=== PATIENT | female | born 1975 | race Caucasian/White ===

== ENCOUNTER 2020-01-13 09:47 | Outpatient (REF) | payer BC, SELFPAY ==
--- NOTE | 2020-01-13 | MR_ITS ---
EXAMINATION: MRI BRAIN WITHOUT AND WITH CONTRAST MRI CERVICAL SPINE WITHOUT AND WITH CONTRAST CLINICAL INFORMATION: Multiple sclerosis. Follow-up. COMPARISON: Brain and cervical spine there are chronic postoperative changes of an anterior cervical discectomy and fusion with plate and screw hardware extending from C5 to C6. MRI 03/05/2018, 04/08/2016. TECHNIQUE: Multiplanar MR imaging of the brain and cervical spine was performed without and with contrast. A total of 8 mL Gadavist was utilized for this examination. FINDINGS: Brain: There are numerous foci of T2 FLAIR signal hyperintensity primarily involving the supratentorial white matter with a predilection for the callososeptal interface and juxtacortical white matter consistent with the patient's clinical history of multiple sclerosis. Postcontrast images reveal no abnormal intraparenchymal enhancement to suggest active demyelination at the time of imaging. Overall the extent of chronic white matter disease has remained stable when compared to the 05/06/2017 examination. There is no acute territorial infarct. No pathological magnetic susceptibility artifact. Intracranial vascular flow voids are grossly maintained. There is no intracranial mass effect or midline shift. No abnormal extra-axial collection. Lateral and third ventricles are proportionate to the subarachnoid spaces. No hydrocephalus. Midline structures including the cervicomedullary junction are normal. No acute bone marrow signal changes. There is no mastoid or middle ear effusion. Paranasal sinus disease primarily affecting the ethmoid air cells. Cervical spine: There are chronic postoperative changes of an anterior cervical discectomy and fusion with plate and screw hardware extending from C5 to C6. Alignment is normal. Vertebral heights are preserved. There is loss of intervertebral disc height and T2 signal intensity at the levels of C4-C5 and C6-C7 related to disc degeneration. There are type I degenerative endplate changes at C6-C7 and type II degenerative endplate changes at C4-C5. There are a few eccentric short segment white matter lesions visualized within the upper thoracic cord consistent with the patient's clinical history of demyelinating disease. Possible new intramedullary lesion at T2. There is also a short segment focus of increased T2 signal intensity involving the cord at the level of C6-C7 that may represent a manifestation of compressive myelopathy. The occipital condyles and lateral C1 masses are intact. There is degenerative arthrosis of the atlantodental joint. C1-C2 articular facets are unremarkable. At C2-C3 the annular contour is normal. No canal or neuroforaminal compromise. At C3-C4 the annular contour is normal. No canal or neuroforaminal compromise. At C4-C5 there is a slightly bulging disc causing mild canal stenosis. No overt cord compression or abnormal intramedullary signal changes. Uncovertebral joint spurring and facet degenerative change causes moderate left and mild right neuroforaminal encroachment. At C5-C6 the canal is decompressed. No neuroforaminal encroachment. At C6-C7 there is a broad shallow central protrusion superimposed upon a bulging disc causing near complete effacement of subarachnoid space and subtle distortion of the ventral cord contour defect resulting in moderate to severe stenosis. Questionable short segment focus of increased intramedullary T2 signal intensity at this level may represent manifestation of demyelination or edema. Uncovertebral joint spurring and facet degenerative change causes moderate bilateral neuroforaminal encroachment, greater on the right. At C7-T1 there is a slightly bulging disc. Bilateral facet degenerative change. No canal stenosis. Mild right neuroforaminal encroachment. Postcontrast images reveal no abnormal intradural enhancement. Visualized soft tissues of the neck are normal. IMPRESSION: Brain: Stable chronic white matter disease that demonstrates a pattern consistent with the patient's clinical history of multiple sclerosis. No new white matter lesions and no abnormal enhancement to suggest active demyelination at the time of imaging. Cervical spine: There chronic changes of an anterior cervical discectomy and fusion at C5-C6. There is junctional spondylosis above and below the fused segments. At C6-C7 there is a broad central protrusion superimposed upon a bulging disc causing moderate to severe stenosis with subtle distortion of the ventral cord contour. Questionable short segment of edema and/or myelomalacia involving the cervical cord at this level. Mild canal stenosis at C4-C5. A few chronic intramedullary lesions are partially visualized within the upper thoracic cord compatible with this patient's history of multiple sclerosis. An intramedullary lesion at the level of T2 appears new when compared to the previous examination from 03/05/2018. No clear evidence of associated enhancement on postcontrast imaging.
== END 2020-01-13 09:48 | disposition home or self-care (01) ==
LOC: HO.MRI 09:47
PROVIDERS: Visit Provider Nurse Practitioner Acute Care
DX: G35 Multiple sclerosis (principal)
CPT/HCPCS: 70553; 72156

== ENCOUNTER 2020-02-17 16:28 | Outpatient (REF) | payer BC, SELFPAY ==
--- NOTE | 2020-02-17 16:45 | MR_ITS ---
MR THORACIC SPINE WITHOUT AND WITH CONTRAST CLINICAL INFORMATION: Multiple sclerosis. Vitamin D deficiency. COMPARISON: Thoracic spine MRI 02/07/2014. TECHNIQUE: MRI of the thoracic spine was obtained using routine sequences with and without contrast. Intravenous contrast: Gadavist 7 mL. FINDINGS: Assessment for discrete cord lesions is limited by the degree of artifact with none definitively seen. There are no enhancing thoracic cord lesions. Thoracic alignment is maintained. There is mild disc volume loss at the mid to lower thoracic levels. The vertebral body heights are maintained. There is no bone marrow edema. There are no acute fractures. Small paracentral disc protrusions within the thoracic spine remain stable including the largest which is a left paracentral disc protrusion at T10-T11 that partially effaces the left subarticular zone and slightly flattens the left ventral cord resulting in mild narrowing of the central canal. A partially imaged disc protrusion at C6-C7 flattens the ventral cord and results in similar moderate to severe central canal stenosis in comparison to the 01/13/2020 cervical spine MRI. MR/MR thoracic spine wo/w con IMPRESSION: - No definite thoracic cord lesions are identified accounting for artifact. There are no enhancing thoracic cord lesions. - Small paracentral disc protrusions within the thoracic spine remain stable including the largest which is a left paracentral disc protrusion at T10-T11 that partially effaces the left subarticular zone and slightly flattens the left ventral cord resulting in mild narrowing of the central canal. - A partially imaged disc protrusion at C6-C7 flattens the ventral cord and results in similar moderate to severe central canal stenosis in comparison to the 01/13/2020 cervical spine MRI.
== END 2020-02-17 16:29 | disposition home or self-care (01) ==
LOC: HO.MRI 16:28
PROVIDERS: Visit Provider Psychiatry & Neurology Neurology
DX: G35 Multiple sclerosis (principal); E55.9 Vitamin D deficiency, unspecified
CPT/HCPCS: 72157

== ENCOUNTER 2020-06-10 15:44 | Outpatient (REF) | payer BC, SELFPAY ==
[2020-06-10 16:11] LABS: MANUAL DIFF FLAG NO
[2020-06-10 16:22] LABS: Basophils Percent Auto 0.7 % (0-2); Eosinophils Absolute Auto 0.3 X10*3/uL (0.0-0.4); Eosinophils Percent Auto 4.3 % (0-4); Hemoglobin 12.9 g/dl (12.0-16.0); Imm Gran Abs Auto 0.01 X10*3/uL (0.00-0.03); Imm Gran Pct Auto 0.2 % (0.0-0.4); Lymphocytes Absolute Auto 1.4 X10*3/uL (1.2-4.9); Lymphocytes Percent Auto 24.2 % (20-40); Mean Corpuscular HGB Conc 33.1 g/dl (31.0-35.0); Mean Corpuscular Hemoglobin 33.1 pg (27.0-33.0); Mean Platelet Volume 10.4 fL (9.4-12.3); Monocytes Absolute Auto 0.4 X10*3/uL (0.1-1.2); Monocytes Percent Auto 7.2 % (2-11); Neutrophils Absolute Auto 3.7 X10*3/uL (2.0-8.3); Neutrophils Percent Auto 63.4 % (45-73); Platelet Count 350 X10*3/uL (160-400); Red Cell Distribution Width 12.9 % (11.0-16.0); White Blood Count 5.8 X10*3/uL (4.8-10.8)
[2020-06-10 16:48] LABS: Alanine Aminotransferase 12 U/L (0-31); Albumin Level 4.3 g/dL (3.5-5.0); Alkaline Phosphatase 51 U/L (39-117); Aspartate Amino Transferase 16 U/L (5-31); Bilirubin Direct < 0.2 mg/dL (0.0-0.5); Bilirubin Total 0.3 mg/dL (0.0-1.0); Total Protein 6.8 g/dL (6.5-8.0)
[2020-06-10 17:09] LABS: Vitamin D 25-OH Total 20.9 ng/mL (>30)
== END 2020-06-10 15:45 | disposition home or self-care (01) ==
LOC: HO.LAB 15:44
PROVIDERS: PCP Internal Medicine; Visit Provider Psychiatry & Neurology Neurology
DX: G35 Multiple sclerosis (principal); E55.9 Vitamin D deficiency, unspecified
CPT/HCPCS: 36415; 80076; 82306; 85025

== ENCOUNTER 2020-07-09 08:55 | Outpatient (REF) | payer BC, SELFPAY ==
[2020-07-09 11:56] LABS: Alanine Aminotransferase 15 U/L (0-31); Albumin Level 4.2 g/dL (3.5-5.0); Alkaline Phosphatase 51 U/L (39-117); Anion Gap 10 (12-20); Aspartate Amino Transferase 19 U/L (5-31); Bilirubin Total 0.5 mg/dL (0.0-1.0); Blood Urea Nitrogen 14 mg/dL (9-16); Calcium 8.5 mg/dL (8.4-10.2); Carbon Dioxide 30 mmol/L (22-29); Chloride 104 mmol/L (96-108); Cholesterol 175 mg/dL; Estimated Glomerular Filt Rate > 60; Glucose Fasting 78 mg/dL (60-99); HDL Cholesterol 76 mg/dL; LDL Cholesterol Calculated 90 mg/dl; Potassium 4.3 mmol/L (3.3-5.1); Sodium 140 mmol/L (135-145); Total Protein 6.8 g/dL (6.5-8.0); Triglycerides 45 mg/dL
[2020-07-13 18:51] LABS: HPV mRNA E6/E7 Not Detected (Not Detected)
== END 2020-07-09 08:56 | disposition home or self-care (01) ==
LOC: HO.HMGCLDS 08:55
PROVIDERS: PCP Internal Medicine; Visit Provider Internal Medicine
DX: Z00.00 Encounter for general adult medical examination without abnormal findings (principal); N94.6 Dysmenorrhea, unspecified; Z11.51 Encounter for screening for human papillomavirus (HPV)
CPT/HCPCS: 36415; 80053; 80061; 87624; 88142

== ENCOUNTER 2020-07-21 10:58 | Outpatient (REF) | payer BC, SELFPAY ==
--- NOTE | ~2020-07-21 | US_ITS ---
EXAMINATION: US PELVIS AND TRANSVAGINAL CLINICAL INFORMATION: Dysmenorrhea. Irregular LMP. COMPARISON: None TECHNIQUE: Transabdominal and transvaginal imaging was performed. FINDINGS: The uterus is of normal size and echogenicity measuring 9.7 x 5.7 x 7.3 cm. There are heterogeneous myometrial lesions, likely representing fibroids and measuring 2.6 cm within the posterior fundus as well as 1.7 cm within the anterior lower uterine segment. The endometrium measures up to 1.3 cm in thickness. Probable slightly hypoechoic endometrial polyp measuring 0.8 x 1.4 x 1.2 cm. There are multiple nabothian cysts. Both ovaries are of normal size and echogenicity. The right measures 3.2 x 2.2 x 2.9 cm for a volume of 10.7 mL. Right adnexal dominant follicle measuring 2.2 cm. The left measures 2.3 x 1.7 x 2.1 cm for a volume of 4.4 mL. There is no pelvic free fluid. US/US pelvic and transvaginal IMPRESSION: 1. Myometrial fibroids measuring 2.6 and 1.7 cm. 2. Probable endometrial polyp measuring up to 1.4 cm. 3. Right adnexal dominant follicle measuring 2.2 cm. Unremarkable left adnexa.
== END 2020-07-21 10:59 | disposition home or self-care (01) ==
LOC: HO.US 10:58
PROVIDERS: Visit Provider Internal Medicine
DX: N94.6 Dysmenorrhea, unspecified (principal)
CPT/HCPCS: 76830; 76856

== ENCOUNTER 2020-11-16 14:51 | Outpatient (REF) | payer BC, SELFPAY | END 2020-11-16 14:52 | disposition home or self-care (01) | LOC: HO.LAB 14:51 | PROVIDERS: PCP Internal Medicine; Visit Provider Internal Medicine | DX: Z20.822 Contact with and (suspected) exposure to COVID-19 (principal) | CPT/HCPCS: C9803; U0003; U0005 ==

== ENCOUNTER 2021-07-28 08:22 | Outpatient (REF) | payer BC, SELFPAY ==
[2021-07-28 12:00] LABS: Hematocrit 40.2 % (37.0-47.0); Hemoglobin 13.1 g/dl (12.0-16.0); Mean Corpuscular HGB Conc 32.6 g/dl (31.0-35.0); Mean Corpuscular Hemoglobin 32.7 pg (27.0-33.0); Mean Corpuscular Volume 100.2 fL (80.0-98.0); Mean Platelet Volume 10.4 fL (9.4-12.3); Platelet Count 340 X10*3/uL (160-400); Red Blood Count 4.01 X10*6/uL (4.20-5.50); White Blood Count 4.2 X10*3/uL (4.8-10.8)
[2021-07-28 12:20] LABS: TSH reflex Free T4 1.47 uIU/mL (0.32-4.0); Vitamin D 25-OH Total 28.4 ng/mL (>30)
[2021-07-28 12:28] LABS: Alanine Aminotransferase 12 U/L (0-31); Albumin Level 4.1 g/dL (3.5-5.0); Alkaline Phosphatase 59 U/L (39-117); Anion Gap 13 (12-20); Aspartate Amino Transferase 16 U/L (5-31); Bilirubin Total 0.5 mg/dL (0.0-1.0); Blood Urea Nitrogen 19 mg/dL (9-16); Calcium 9.3 mg/dL (8.4-10.2); Carbon Dioxide 26 mmol/L (22-29); Chloride 105 mmol/L (96-108); Cholesterol 189 mg/dL; Estimated Glomerular Filt Rate > 60; Glucose Fasting 89 mg/dL (60-99); HDL Cholesterol 84 mg/dL; Iron 112 mcg/dL (30-160); LDL Cholesterol Calculated 96 mg/dl; Percent Iron Saturation 33 % (15-50); Potassium 4.2 mmol/L (3.3-5.1); Sodium 140 mmol/L (135-145); Total Iron Binding Capacity 335 mcg/dL (228-428); Total Protein 6.8 g/dL (6.5-8.0); Triglycerides 49 mg/dL; Unsaturated Iron Binding 223 ug/dL
[2021-07-28 15:46] LABS: Folate 12.6 ng/mL (> or = 4.0); Vitamin B12 < 146 pg/mL (200-900)
== END 2021-07-28 08:23 | disposition home or self-care (01) ==
LOC: HO.HMGCLDS 08:22
PROVIDERS: PCP Internal Medicine; Visit Provider Internal Medicine
DX: Z00.00 Encounter for general adult medical examination without abnormal findings (principal)
CPT/HCPCS: 36415; 80053; 80061; 82306; 82607; 82746; 83540; 84443; 85027

== ENCOUNTER 2021-08-03 12:50 | Emergency (ER) | payer BC, SELFPAY ==
--- NOTE | 2021-08-03 | ECG_ITS ---
Test Reason : cp Blood Pressure : / mmHG Vent. Rate : 095 BPM Atrial Rate : 095 BPM P-R Int : 142 ms QRS Dur : 082 ms QT Int : 364 ms P-R-T Axes : 051 -42 -01 degrees QTc Int : 457 ms Normal sinus rhythm Left axis deviation Septal infarct , age undetermined Abnormal ECG No previous ECGs available Referred By: Generic ED Physician Electronically Signed By:TEMITOPE MONTENEGRO MD
--- NOTE | ~2021-08-03 | XR_ITS ---
EXAMINATION: XR CHEST CLINICAL INFORMATION: Chest tightness COMPARISON: Previous chest x-ray June 2009 TECHNIQUE: Frontal view of the chest was obtained. FINDINGS: The cardiac and mediastinal contours are normal. The lungs are clear. There is no pleural effusion or pneumothorax area of are postsurgical changes to the lower cervical spine. XR/XR chest 1V IMPRESSION: No evidence for acute disease in the chest.
[2021-08-03 12:56] VITALS: BP 130/85; PULSE 95; RESP 18; TEMP 37.6; O2SAT 98; BMI 30.9
--- NOTE | 2021-08-03 16:52 | ED_ITS ---
HPI - URI/Sore Throat General Chief Complaint: Upper Respiratory Symptoms Stated Complaint: covid + chest tightness Time Seen by Provider: 08/03/21 16:03 Source: patient Mode of arrival: ambulatory Limitations: no limitations History of Present Illness HPI Narrative: 45 y/o female with history of asthma, multiple sclerosis who was diagnosed with COVID-19 three days ago presents to the ER for evaluation of increasing chest tightness, dry cough, sore throat, chills, headache, body aches and nausea. She had a telehealth visit with her provider this morning who prescribed her prednisone and oral antiviral. She presented to the ER for evaluation of possible pneumonia with a chest x-ray before she initiated these medications. She has a history of asthma and multiple sclerosis and is worried about developing COVID pneumonia. She reports dry cough is worse at night and aches been keeping her up at night. She has chest tightness when she coughs and takes a deep breath. She is short of breath with coughing fits and when she gets to the top of stairs. She denies any chest pain at rest or shortness of breath at rest. She is vaccinated with [employer] x2. MD elicited complaint: fever, cough, sore throat, nasal congestion and other (body aches) Pertinent past history: asthma Onset (ago): day(s) (3) Consistency: constant and progressively worsening Severity: moderate Able to tolerate fluids by mouth: Yes Exacerbating factors: exertion Relieving factors: OTC cold medicine Context: sick contacts Associated symptoms: fever, chills, myalgias, nasal congestion, sore throat, cough, shortness of breath and nausea Treatments prior to arrival: none Related Data Home Medications Medication Instructions Recorded Confirmed cholecalciferol (vitamin D3) 1,250 1,250 mcg PO QWEEK 07/09/20 07/09/20 mcg (50,000 unit) capsule dimethyl fumarate 240 mg 240 mg PO BID 07/09/20 07/09/20 capsule,delayed release levothyroxine 175 mcg tablet 175 mcg PO DAILY 07/09/20 07/09/20 sertraline 100 mg tablet 100 mg PO DAILY 07/09/20 07/09/20 Previous Rx's Medication Instructions Recorded albuterol sulfate 90 mcg/actuation 1 inh INHALATION QID PRN #8.5 g 07/09/20 aerosol inhaler (ProAir HFA) cyanocobalamin (vitamin B-12) 1,000 mcg PO DAILY #90 tab 07/30/21 1,000 mcg tablet benzonatate 100 mg capsule 100 mg PO TID PRN #14 cap 08/03/21 hydrocodone-homatropine 5 mg-1.5 5 ml PO Q6H PRN #60 ml 08/03/21 mg/5 mL (5 mL) oral syrup (Hycodan) nirmatrelvir 150 mg x 2-ritonavir See Rx Instructions PO .COMPLEX 08/03/21 100 mg tablet (EUA) (Paxlovid #30 tab (EUA)) Allergies Allergy/AdvReac Type Severity Reaction Status Date / Time latex [LATEX] Allergy Intermediate HIVES Verified 08/03/21 12:56 morphine [MORPHINE] Allergy Intermediate HIVES Verified 08/03/21 12:56 acetaminophen [From PERCOCET] Allergy Unknown RASH Verified 08/03/21 12:56 Interferons [INTERFERONS] Allergy Unknown ANAPHYLAXIS Verified 08/03/21 12:56 oxycodone [From PERCOCET] Allergy Unknown RASH Verified 08/03/21 12:56 Review of Systems Review of Systems: Constitutional: + Fever, + Chills ENT/Mouth: + sore throat, No Rhinorrhea, No Swallowing Difficulty Eyes: No Eye Pain, No Swelling, No Redness Cardiovascular: + Chest Pain, + SOB, No Orthopnea, No Edema Respiratory: + Cough, No Sputum, No Wheezing, + dyspnea Gastrointestinal: + Nausea, No Vomiting, No Diarrhea, No abdominal Pain Musculoskeletal: No joint pain, No Myalgias Skin: No Skin Lesions, No rash Neuro: No Weakness, No Numbness, No Dizziness, + Headache Psych: + Anxiety/Panic, No Depression Heme/Lymph: No Bruising, No Lymphadenopathy PMFSH Past Medical History Medical History (Updated 08/03/21 @ 17:01 by DENIA Hsieh) Annual physical exam Arthritis Asthma Bunion of great toe Dysmenorrhea Eczema Endometrial polyp History of atypical skin mole Mammogram normal Multiple sclerosis Normal Pap smear Papillary thyroid carcinoma Precancerous lesion Psoriasis Spinal stenosis Vitamin B12 deficiency Surgical History (Updated 07/07/20 @ 08:59 by Stella Sun RN) H/O left knee surgery H/O spinal fusion H/O total thyroidectomy History of section Family History Family History (Updated 07/07/20 @ 09:01 by Stella Sun RN) Father Hodgkins disease Heart disease Mother Degenerative disk disease Skin cancer Social History Social History (Updated 07/09/20 @ 07:41 by Stella Sun RN) Alcohol intake: current Alcohol intake frequency: holidays/special occasions only Advance Directives: No Advance Directives Information Provided: No Patient : No Physical Exam Vital Signs: Vital Signs: Last Vital Signs Temp 99.2 F 08/03/21 17:01 Pulse 85 08/03/21 17:01 Resp 16 08/03/21 17:01 BP 109/70 08/03/21 17:01 Pulse Ox 99 08/03/21 17:01 BMI result Body Mass Index 30.9 Appearance: Alert. Oriented X3. No acute distress. Eyes: Pupils equal, round and reactive to light. ENT: Pharynx with mild posterior erythema, no tonsillar exudate Neck: Normal inspection. Neck supple. CVS: Normal heart rate and rhythm. Pulses normal. Respiratory: No respiratory distress. Breath sounds normal. Dry cough Abdomen: Soft and nontender. +BS x4 Skin: Skin warm and dry. Normal skin color. Normal skin turgor. No rashes. Extremities: No lower extremity edema. No calf tenderness. Neuro: Oriented X 3. Grossly normal, nonfocal. Steady gait Course Course Course Narrative: 45-year-old female with a history of asthma and multiple sclerosis presents to the ER for evaluation of worsening COVID symptoms. Her symptoms started 3 days ago, on the day that she was diagnosed. On arrival to the ER she is afebrile, SpO2 98% on room air. She is not tachycardic. She is ambulatory with no dyspnea on exertion respiratory distress. Her lungs are clear. Her chest x-ray is clear. Her EKG does not demonstrate any ST elevations or depressions. Symptoms all seem to be related to COVID-19 and she is stable. She is to be started on prednisone and oral antiviral by her PCP. Will add antitussive agents given her cough is worse at night. She will follow-up with her PCP. At this time she is stable for discharge home with outpatient follow-up. MDM - URI/Sore Throat Medical Records Attestation: I reviewed the patient's medical records. ECG Data Attestation: I personally reviewed and interpreted this ECG as follows: ECG interpretation date: 08/03/21 Prior ECG tracings: not available for review Interpretation: normal sinus rhythm, HR 95 bpm, left axis deviation, t-wave inversion in lead III, normal AR interval, no ST segment elevations or depressions Discharge Plan Discharge Clinical Impression: COVID-19 Patient Disposition: Home, Self-Care Instructions: Covid-19 Viral Syndrome and Novel Coronavirus (ED) Hey/Ath Additional Instructions: Your chest x-ray and oxygen levels were normal. Rest. Drink plenty of fluids. Do not go out in public for the next 7 days or until you are feeling better. Take over the counter cold/flu medications as needed for your symptoms. Take Tylenol 975 mg every 6 hours as needed for fevers and body aches. Follow up with your doctor this week. If you shortness of breath worsens, if you develop difficulty breathing or any other concerning symptom come back to the ER for further evaluation. Prescriptions: New benzonatate 100 mg capsule 100 mg PO TID PRN (Reason: cough) Qty: 14 0RF hydrocodone-homatropine [Hycodan] 5-1.5 mg/5 mL (5 mL) syrup 5 ml PO Q6H PRN (Reason: cough) Qty: 60 0RF No Action cyanocobalamin (vitamin B-12) 1,000 mcg tablet 1,000 mcg PO DAILY Qty: 90 1RF Paxlovid (EUA) 150 mg x 2- 100 mg tablet See Rx Instructions PO .COMPLEX Qty: 30 0RF Rx Instructions: take TWO 150 mg tablets of nirmatrelvir with ONE 100 mg tablet of ritonavir twice daily for 5 days PO cholecalciferol (vitamin D3) 1,250 mcg (50,000 unit) capsule 1,250 mcg PO QWEEK 0RF sertraline 100 mg tablet 100 mg PO DAILY 0RF levothyroxine 175 mcg tablet 175 mcg PO DAILY 0RF dimethyl fumarate 240 mg capsule,delayed release(DR/EC) 240 mg PO BID 0RF albuterol sulfate [ProAir HFA] 90 mcg/actuation HFA aerosol inhaler 1 inh inhalation QID PRN (Reason: shortness of breath or wheezing) Qty: 8.5 4RF Stand Alone Forms: Work/School Release
[2021-08-03 17:01] VITALS: BP 109/70; PULSE 85; RESP 16; TEMP 37.3; O2SAT 99
== END 2021-08-03 17:22 | disposition home or self-care (01) ==
PROVIDERS: Emergency Provider Emergency Medicine; PCP Internal Medicine
DX: U07.1 COVID-19 (principal); R05.9 Cough, unspecified; M79.10 Myalgia, unspecified site; R06.02 Shortness of breath; Z79.899 Other long term (current) drug therapy
CPT/HCPCS: 71045; 93005; 99283; 99284

== ENCOUNTER 2021-08-23 14:28 | Outpatient (REF) | payer BC, SELFPAY ==
--- NOTE | ~2021-08-23 | XR_ITS ---
EXAMINATION: XR CHEST CLINICAL INFORMATION: Cough COMPARISON: 08/03/2021 TECHNIQUE: 2 views of the chest were obtained. FINDINGS: No significant abnormality is noted involving the heart, lungs, mediastinum, bony thorax or soft tissues. There is been previous cervical spine anterior fusion and discectomy. XR/XR chest 2V IMPRESSION: No acute intrathoracic disease
== END 2021-08-23 14:29 | disposition home or self-care (01) ==
LOC: HO.HMGCX 14:28
PROVIDERS: PCP Internal Medicine; Visit Provider Internal Medicine
DX: R05.9 Cough, unspecified (principal)
CPT/HCPCS: 71046

== ENCOUNTER 2021-11-03 18:27 | Outpatient (REF) | payer BC, SELFPAY ==
--- NOTE | ~2021-11-03 | MR_ITS ---
EXAMINATION: MR BRAIN WITHOUT AND WITH CONTRAST MR CERVICAL SPINE WITHOUT AND WITH CONTRAST CLINICAL INFORMATION: Multiple sclerosis followup study. COMPARISON: Prior MRI dated 01/13/2020. TECHNIQUE: Multiplanar, multisequential imaging was obtained of the cervical spine and brain without and with intravenous administration of contrast. Intravenous contrast: Gadavist 8.5 mL. FINDINGS: BRAIN: The overall pattern of disease is without significant change. No new dominant white matter lesions are identified. There is no abnormal parenchymal enhancement to suggest active inflammation. The gradient refocused acquisition is normal. No diffusion abnormalities are identified to suggest an acute or subacute infarct. The ventricles are normal in size. No mass effect or midline shift is seen. No extra-axial fluid collections are seen. On postcontrast imaging, there is no abnormal enhancement. The craniovertebral junction, marrow signal, and midline structures are normal. The major intracranial flow-voids at the level of the [place] are preserved. The dural venous sinus flow-voids are maintained. The mastoid air cells and paranasal sinuses are well aerated. CERVICAL SPINE: The patient is status post previous anterior cervical discectomy and fusion with hardware instrumentation and a solid arthrodesis at the C5-C6 level. Moderate loss of disc height with chronic degenerative endplate changes again evident at the C4-C5 and C6-C7 levels with mild posterior subluxations. No cord signal abnormality or syrinx is seen. There is no pathologic intradural enhancement on postcontrast imaging. The paraspinal soft tissues are normal. The vertebral artery flow-voids are maintained. The visualized lung apices are grossly clear. C2-C3: Central disc protrusion mildly impresses upon the ventral cord, new compared to the previous study. No central canal stenosis or foraminal narrowing. C3-C4: No significant disc pathology. Patent central canal and foramina. C4-C5: Disc-osteophyte complex and significant foraminal encroachment, worse on the left side with hypertrophic facet arthropathy and [id number] central canal stenosis. C5-C6: Solid arthrodesis without central canal stenosis or foraminal narrowing. C6-C7: Retrosubluxation and disc-osteophyte complex with moderate central canal stenosis and ventral cord flattening. Prior superimposed central disc protrusion has partially resorbed. Significant bilateral foraminal narrowing. C7-T1: No disc pathology. No central canal stenosis. Uncovertebral joint spurring with moderate right foraminal encroachment. MR/MR head/brain wo/w con IMPRESSION: No evidence of disease progression. No focal parenchymal enhancement to indicate active inflammation. No acute intracranial process. No cord lesions identified. No abnormal enhancement. Status post anterior cervical discectomy and fusion with a solid arthrodesis at the C5-C6 level. New mild central disc protrusion at the C2-C3 level mildly impressing upon the ventral cord. Moderate spondylosis at the C4-C5 level with [id number] central canal stenosis and severe foraminal narrowing, similar to prior imaging. Broad-based disc-osteophyte complex and retrosubluxation with moderate central canal stenosis at the C6-C7 level. Severe bilateral foraminal narrowing.
--- NOTE | ~2021-11-03 | MR_ITS ---
EXAMINATION: MR BRAIN WITHOUT AND WITH CONTRAST MR CERVICAL SPINE WITHOUT AND WITH CONTRAST CLINICAL INFORMATION: Multiple sclerosis followup study. COMPARISON: Prior MRI dated 01/13/2020. TECHNIQUE: Multiplanar, multisequential imaging was obtained of the cervical spine and brain without and with intravenous administration of contrast. Intravenous contrast: Gadavist 8.5 mL. FINDINGS: BRAIN: The overall pattern of disease is without significant change. No new dominant white matter lesions are identified. There is no abnormal parenchymal enhancement to suggest active inflammation. The gradient refocused acquisition is normal. No diffusion abnormalities are identified to suggest an acute or subacute infarct. The ventricles are normal in size. No mass effect or midline shift is seen. No extra-axial fluid collections are seen. On postcontrast imaging, there is no abnormal enhancement. The craniovertebral junction, marrow signal, and midline structures are normal. The major intracranial flow-voids at the level of the [place] of [place] are preserved. The dural venous sinus flow-voids are maintained. The mastoid air cells and paranasal sinuses are well aerated. CERVICAL SPINE: The patient is status post previous anterior cervical discectomy and fusion with hardware instrumentation and a solid arthrodesis at the C5-C6 level. Moderate loss of disc height with chronic degenerative endplate changes again evident at the C4-C5 and C6-C7 levels with mild posterior subluxations. No cord signal abnormality or syrinx is seen. There is no pathologic intradural enhancement on postcontrast imaging. The paraspinal soft tissues are normal. The vertebral artery flow-voids are maintained. The visualized lung apices are grossly clear. C2-C3: Central disc protrusion mildly impresses upon the ventral cord, new compared to the previous study. No central canal stenosis or foraminal narrowing. C3-C4: No significant disc pathology. Patent central canal and foramina. C4-C5: Disc-osteophyte complex and significant foraminal encroachment, worse on the left side with hypertrophic facet arthropathy and [id number] central canal stenosis. C5-C6: Solid arthrodesis without central canal stenosis or foraminal narrowing. C6-C7: Retrosubluxation and disc-osteophyte complex with moderate central canal stenosis and ventral cord flattening. Prior superimposed central disc protrusion has partially resorbed. Significant bilateral foraminal narrowing. C7-T1: No disc pathology. No central canal stenosis. Uncovertebral joint spurring with moderate right foraminal encroachment. MR/MR cervical spine wo/w con IMPRESSION: No evidence of disease progression. No focal parenchymal enhancement to indicate active inflammation. No acute intracranial process. No cord lesions identified. No abnormal enhancement. Status post anterior cervical discectomy and fusion with a solid arthrodesis at the C5-C6 level. New mild central disc protrusion at the C2-C3 level mildly impressing upon the ventral cord. Moderate spondylosis at the C4-C5 level with [id number] central canal stenosis and severe foraminal narrowing, similar to prior imaging. Broad-based disc-osteophyte complex and retrosubluxation with moderate central canal stenosis at the C6-C7 level. Severe bilateral foraminal narrowing.
== END 2021-11-03 18:28 | disposition home or self-care (01) ==
LOC: HO.MRI 18:27
PROVIDERS: Visit Provider Psychiatry & Neurology Neurology
DX: G35 Multiple sclerosis (principal)
CPT/HCPCS: 70553; 72156; A9585

== ENCOUNTER 2022-05-09 16:00 | Outpatient (REF) | payer BC, SELFPAY ==
--- NOTE | ~2022-05-09 | MM_ITS ---
EXAMINATION: MM SCREENING DIGITAL BREAST TOMOSYNTHESIS, BILATERAL CLINICAL INFORMATION: Screening. Asymptomatic. The lifetime risk of breast cancer based on the Tyrer-Cuzick Model is 15.6%. COMPARISON: Mammography: September 25, 2017 TECHNIQUE: Digital breast tomosynthesis is performed in both the craniocaudal and mediolateral oblique views along with computer-aided detection (CAD). Synthesized 2D images are generated from the tomosynthesis. FINDINGS: There are scattered areas of fibroglandular density (ACR BI-RADS breast composition Category b). There are no significant masses, abnormal calcifications, or other abnormalities. MM/MM tomosynthesis screening BI IMPRESSION: No significant changes from prior exam. ASSESSMENT: BI-RADS 1: Negative RECOMMENDATION: Routine annual mammography screening. This patient's information was entered into a reminder system with a target due date for their next mammogram.
== END 2022-05-09 16:01 | disposition home or self-care (01) ==
LOC: HO.MAMMO 16:00
PROVIDERS: PCP Internal Medicine; Visit Provider Internal Medicine
DX: Z12.31 Encounter for screening mammogram for malignant neoplasm of breast (principal)
CPT/HCPCS: 77063; 77067

== ENCOUNTER 2022-06-13 07:22 | Outpatient (REF) | payer BC, SELFPAY ==
[2022-06-13 12:55] LABS: Folate 11.8 ng/mL (> or = 4.0); Vitamin B12 347 pg/mL (200-900); Vitamin D 25-OH Total 20.3 ng/mL (>30)
[2022-06-16 15:23] LABS: Apolipoprotein B 60 mg/dL (<90)
== END 2022-06-13 07:23 | disposition home or self-care (01) ==
LOC: HO.HMGCLDS 07:22
PROVIDERS: PCP Internal Medicine; Visit Provider Internal Medicine
DX: Z00.00 Encounter for general adult medical examination without abnormal findings (principal); R79.89 Other specified abnormal findings of blood chemistry; E53.8 Deficiency of other specified B group vitamins; E55.9 Vitamin D deficiency, unspecified
CPT/HCPCS: 36415; 82172; 82306; 82607; 82746

== ENCOUNTER 2022-06-21 07:44 | Outpatient (REF) | payer BC, SELFPAY ==
[2022-06-21 11:44] LABS: MANUAL DIFF FLAG NO
[2022-06-21 11:50] LABS: Basophils Absolute Auto 0.1 X10*3/uL (0.0-0.2); Basophils Percent Auto 1.2 % (0-2); Eosinophils Absolute Auto 0.2 X10*3/uL (0.0-0.4); Eosinophils Percent Auto 4.4 % (0-4); Hematocrit 40.9 % (37.0-47.0); Hemoglobin 13.3 g/dl (12.0-16.0); Imm Gran Abs Auto 0.01 X10*3/uL (0.00-0.03); Imm Gran Pct Auto 0.2 % (0.0-0.4); Lymphocytes Absolute Auto 1.1 X10*3/uL (1.2-4.9); Lymphocytes Percent Auto 25.8 % (20-40); Mean Corpuscular HGB Conc 32.5 g/dl (31.0-35.0); Mean Corpuscular Hemoglobin 32.3 pg (27.0-33.0); Mean Corpuscular Volume 99.3 fL (80.0-98.0); Mean Platelet Volume 11.1 fL (9.4-12.3); Monocytes Absolute Auto 0.4 X10*3/uL (0.1-1.2); Monocytes Percent Auto 9.8 % (2-11); Neutrophils Absolute Auto 2.4 x10*3/uL (2.0-8.3); Neutrophils Percent Auto 58.6 % (45-73); Platelet Count 336 X10*3/uL (160-400); Red Blood Count 4.12 X10*6/uL (4.20-5.50); Red Cell Distribution Width 12.9 % (11.0-16.0); White Blood Count 4.1 X10*3/uL (4.8-10.8)
[2022-06-21 12:25] LABS: Alanine Aminotransferase 17 U/L (0-31); Alkaline Phosphatase 61 U/L (39-117); Anion Gap 11 (12-20); Aspartate Amino Transferase 19 U/L (5-31); Bilirubin Total 0.6 mg/dL (0.0-1.0); Blood Urea Nitrogen 9 mg/dL (9-16); C Reactive Protein 0.18 mg/dL (< or = 0.50); Carbon Dioxide 27 mmol/L (22-29); Chloride 104 mmol/L (96-108); Estimated Glomerular Filt Rate > 60; Glucose Fasting 87 mg/dL (60-99); Potassium 4.3 mmol/L (3.3-5.1); Sodium 138 mmol/L (135-145); Total Protein 6.3 g/dL (6.5-8.0)
[2022-06-21 12:27] LABS: TSH reflex Free T4 0.39 uIU/mL (0.32-4.0)
[2022-06-23 00:54] LABS: Follicle Stimulating Hormone 8.1 mIU/mL
== END 2022-06-21 07:45 | disposition home or self-care (01) ==
LOC: HO.HMGCLDS 07:44
PROVIDERS: PCP Internal Medicine; Visit Provider Internal Medicine
DX: Z00.00 Encounter for general adult medical examination without abnormal findings (principal); E55.9 Vitamin D deficiency, unspecified; R10.9 Unspecified abdominal pain
CPT/HCPCS: 36415; 80053; 83001; 84443; 85025; 86140

== ENCOUNTER 2022-09-27 16:00 | Outpatient (RCR) | payer BC, SELFPAY ==
--- NOTE | 2022-08-26 09:41 | MHC.PT.EP ---
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 and history of lumbar and cervical spinal fusions and is referred to PT for eval and treat of spinal stenosis resulting in decreased tolerance for walking long distances, lifting objects from the floor, performing heavy HH chores, entering and exiting a car, sitting for duration, and performing fitness activities secondary to decreased L > R LE strength, decreased core strength, increased lumbar tissue tension, decreased trunk ROM, Hx of MS and spinal fusions, and pain; Pt is deemed an appropriate candidate to receive skilled PT services in order to address her physical impairments to improve her functional ability. Frequency and Duration: The patient will be seen 1x / wk x 8 wks. Short Term Goals: Initiate HEP. Improve baseline pain form 4-5/10 to at most 2-3/10. [employer] Goals: I with home program. Pt will improve her Ranjeet outcome measure by at least 9 points in order to demonstrate improved function. Pt will be berta to walk long distances with managed Sx; initial: limited from walking long distances. Improve core strength to at least good+; initial good -. Improve B hip abd MMT by at least 1/2MMT grade; initial: 4/5 B Improve L knee flexion and extension by at least 1/2 MMT grade; initial: flexion 4-/5, extension 4/5. Treatment Plan: Modalities to reduce pain, spasms and effusion. Manual therapy to restore motion and function. Therapeutic exercise to improve strength and flexibility. Neuromuscular re-education for posture and balance. Therapeutic activities to return to functional activities of daily living. Electronically signed by: Parvez Melendez PT. Please sign and return to therapist. Thank you for your referral.
--- NOTE | 2022-11-17 09:09 | MHC.PT.DC ---
[facility] [place] [facility] [place] [facility] [place] Office [address] Isaías Galindo [address] [phone] F: [phone] F: [phone] F: [phone] F: [phone] Physical Therapy Discharge Report Diagnosis: Spinal stenosis Date of Surgery: Date of Evaluation: 08/24/22 Date of Discharge: 11/17/22 Treatments to Date: 4 Cancellations to Date: No Shows to Date: Discharge Status: Patient Elected to Stop Recommend MD Follow-up Discharge Summary: Basic program of pelvic and lumbar stabilization program initiated. Unfortunately pt reports she has had an increase in MS symptoms. She requested therapy hold however has not returned to care. Electronically signed by: Parvez Melendez PT Please sign and return to therapist. Thank you for your referral.
== END 2022-11-17 09:11 | disposition home or self-care (01) ==
LOC: HO.PTCHIC 16:00
PROVIDERS: PCP Internal Medicine; Visit Provider Internal Medicine
DX: M48.00 Spinal stenosis, site unspecified (principal)
CPT/HCPCS: 97110; 97140; 97161

== ENCOUNTER 2022-09-29 15:23 | Outpatient (REF) | payer BC, SELFPAY ==
[2022-09-29 15:48] LABS: MANUAL DIFF FLAG NO
[2022-09-29 16:07] LABS: Basophils Absolute Auto 0.1 X10*3/uL (0.0-0.2); Basophils Percent Auto 0.9 % (0-2); Eosinophils Absolute Auto 0.2 X10*3/uL (0.0-0.4); Hematocrit 38.4 % (37.0-47.0); Hemoglobin 12.9 g/dl (12.0-16.0); Imm Gran Abs Auto 0.01 X10*3/uL (0.00-0.03); Imm Gran Pct Auto 0.2 % (0.0-0.4); Lymphocytes Absolute Auto 1.5 X10*3/uL (1.2-4.9); Lymphocytes Percent Auto 25.6 % (20-40); Mean Corpuscular HGB Conc 33.6 g/dl (31.0-35.0); Mean Corpuscular Hemoglobin 33.2 pg (27.0-33.0); Monocytes Absolute Auto 0.4 X10*3/uL (0.1-1.2); Monocytes Percent Auto 7.7 % (2-11); Neutrophils Absolute Auto 3.6 x10*3/uL (2.0-8.3); Neutrophils Percent Auto 62.6 % (45-73); Platelet Count 337 X10*3/uL (160-400); Red Blood Count 3.88 X10*6/uL (4.20-5.50); Red Cell Distribution Width 12.8 % (11.0-16.0); White Blood Count 5.7 X10*3/uL (4.8-10.8)
[2022-09-29 16:47] LABS: Alanine Aminotransferase 14 U/L (0-31); Alkaline Phosphatase 55 U/L (39-117); Anion Gap 12 (12-20); Aspartate Amino Transferase 17 U/L (5-31); Bilirubin Total 0.4 mg/dL (0.0-1.0); Blood Urea Nitrogen 9 mg/dL (9-16); Calcium 9.5 mg/dL (8.4-10.2); Carbon Dioxide 28 mmol/L (22-29); Chloride 103 mmol/L (96-108); Estimated Glomerular Filt Rate > 60; Glucose Random 103 mg/dL (60-115); Iron 73 mcg/dL (30-160); Percent Iron Saturation 27 % (15-50); Sodium 139 mmol/L (135-145); Total Iron Binding Capacity 267 mcg/dL (228-428); Total Protein 6.7 g/dL (6.5-8.0); Unsaturated Iron Binding 194 ug/dL
[2022-09-29 17:13] LABS: Folate 14.3 ng/mL (> or = 4.0); Vitamin B12 1851 pg/mL (200-900)
[2022-09-29 17:36] LABS: Ferritin 83 ng/mL (10-250)
[2022-09-29 17:48] LABS: Appearance Urine Clear; Color Urine Yellow; Glucose Urine UA Negative (Negative); Leukocyte Esterase Urine Negative (Negative); Nitrite Urine Negative (Negative); PH 6.5 (5.0-9.0); Urine Blood Negative (Negative); Urine Ketones Trace mg/dL (Negative); Urine Protein Negative (Neg-Trace)
== END 2022-09-29 15:24 | disposition home or self-care (01) ==
LOC: HO.LAB 15:23
PROVIDERS: PCP Internal Medicine; Visit Provider Psychiatry & Neurology Neurology
DX: G35 Multiple sclerosis (principal); G25.81 Restless legs syndrome; E53.8 Deficiency of other specified B group vitamins; R53.82 Chronic fatigue, unspecified; N31.9 Neuromuscular dysfunction of bladder, unspecified; Z79.899 Other long term (current) drug therapy
CPT/HCPCS: 36415; 80053; 81003; 82607; 82728; 82746; 83540; 83735; 84443; 85025

== ENCOUNTER 2022-11-15 17:55 | Outpatient (REF) | payer BC, SELFPAY ==
--- NOTE | ~2022-11-15 | MR_ITS ---
EXAMINATION: MR BRAIN WITHOUT AND WITH CONTRAST MR CERVICAL SPINE WITHOUT AND WITH CONTRAST CLINICAL INDICATION Multiple sclerosis. Assess for new lesions. COMPARISON: MRI scans of the brain and cervical spine 11/03/2021. TECHNIQUE: MRI scans of the brain and cervical spine were obtained using routine sequences without and with contrast. Intravenous contrast: Gadavist, 8 mL. FINDINGS: MRI Brain: No diffusion abnormalities are identified to suggest an acute or subacute infarct. No mass effect or midline shift is seen. The study redemonstrates multiple foci of hyperintense T2 and FLAIR signal in the periventricular and subcortical white matter, in a distribution consistent with demyelination. The size and distribution of the lesions appears similar compared to prior imaging. None of the foci have restricted diffusion, and none of the areas demonstrate abnormal enhancement following intravenous contrast administration. A few of the foci demonstrate intrinsically low T1 signal consistent with chronic demyelination. The ventricles and sulci are normal in size. No extra-axial fluid collections are seen. The brainstem and cerebellum are normal. On postcontrast imaging, there is no abnormal parenchymal or leptomeningeal enhancement. No pathologic magnetic susceptibility artifact is identified on the gradient refocused acquisition. The craniovertebral junction, marrow signal, and midline structures are normal. The major the mastoid air cells are well-aerated. There is mild mucosal periosteal thickening in the ethmoid sinuses bilaterally. MRI Cervical Spine: VERTEBRAL BODIES AND PARASPINAL SOFT TISSUES: There is straightening of the normal cervical lordosis. The study redemonstrates the sequelae of the ACDF at C5-C6 with an anterior plate and screws and good interbody fusion. The findings appear stable compared to prior imaging. The study redemonstrates a mild retrolisthesis of C6 and C7 and there is narrowing of intervertebral disc height at C4-C5 and C6-C7. There are multilevel degenerative endplate contour changes with moderate fatty signal at C4-C5. There is a minimal amount of edematous endplate signal at C3-C4 anteriorly. Vertebral body heights are maintained, and no fractures are demonstrated. There is now a Schmorl's node in the superior endplate of C3. Overall, marrow signal is slightly heterogenous. There is no abnormal osseous enhancement. There is a 0.7 cm nodule in the left parotid gland, unchanged compared to prior imaging. CERVICOMEDULLARY JUNCTION AND VISUALIZED POSTERIOR FOSSA: The craniocervical and posterior fossa structures are normal. Accounting for artifact, spinal cord signal appears normal. SPINAL LEVELS: C2-C3: The facet joints appear normal. There is a small soft disc protrusion posteriorly in the midline, which is more prominent compared to prior imaging, and there is some effacement of CSF ventral to the cord. There is no cord compression or central stenosis, and the neural foramina are patent. C3-C4: There is mild left facet arthropathy. There is a shallow posterior disc protrusion but there is no cord compression or central stenosis. The neural foramina are patent bilaterally. C4-C5: The facet joints appear normal. There is a posterior disc osteophyte complex which effaces CSF ventral to the cord without cord compression. There is mild to moderate central stenosis. There are uncovertebral osteophytes and there is moderate left and mild right foraminal narrowing. C5-C6: The facet joints appear normal. Posterior vertebral body contours are normal in is no cord compression or central stenosis. The neural foramina are patent bilaterally. C6-C7: There is mild bilateral facet arthropathy. The posterior disc osteophyte complex which effaces CSF ventral to the cord, but there is no cord compression. There is moderate central stenosis. There are uncovertebral osteophytes and there is severe bilateral foraminal narrowing. C7-T1: The facet joints appear normal bilaterally. Posterior disc contour is normal and there is no central stenosis or cord compression. There are uncovertebral osteophytes and there is mild bilateral foraminal narrowing. MR/MR cervical spine wo/w con IMPRESSION: MRI Brain: 1. There are no acute bleeds or infarcts. There are no masses or areas of abnormal enhancement. 2. The study redemonstrates multiple foci of hyperintense T2 and FLAIR signal in the supratentorial white matter, in a distribution consistent with demyelination; the findings appear stable.. MRI Cervical Spine: 1. Spinal cord signal appears normal. There are no acute fractures or subluxations. 2. There are sequelae of ACDF at C5-C6, which appear stable. 3. At C4-C5 there is a posterior disc osteophyte complex without cord compression. There is mild to moderate central stenosis. There is moderate left and mild right foraminal narrowing. 4. At C6-C7 there is facet arthropathy and there is a posterior disc osteophyte complex. There is no cord compression. There is moderate central stenosis. There is severe bilateral foraminal narrowing. 5. There is a stable nodule in the left parotid gland.
[2022-11-15] MEDS: gadobutroL 10 ML VIAL IVPUSH (19:05)
== END 2022-11-15 17:56 | disposition home or self-care (01) ==
LOC: HO.MRI 17:55
PROVIDERS: PCP Internal Medicine; Visit Provider Psychiatry & Neurology Neurology
DX: G35 Multiple sclerosis (principal)
CPT/HCPCS: 70553; 72156; A9585

== ENCOUNTER 2022-11-16 18:14 | Outpatient (REF) | payer BC, SELFPAY ==
--- NOTE | ~2022-11-16 | MR_ITS ---
EXAMINATION: MR THORACIC SPINE WITHOUT AND WITH CONTRAST MR LUMBAR SPINE WITHOUT CONTRAST CLINICAL INFORMATION: Multiple sclerosis, lumbar radiculopathy COMPARISON: MRI of the thoracic spine 02/17/2020, MRI lumbar spine 10/18/2006 (please note that an incomplete examination of the lumbar spine was available for review, consisting of axial T2-weighted imaging only encompassing L3-L4 to L5-S1, somewhat limiting comparison). TECHNIQUE: MRI of the thoracic spine was obtained using routine sequences before and after the administration of 8 mL of Gadavist intravenous contrast. Noncontrast MRI of the lumbar spine was also performed FINDINGS: Thoracic Spine: Normal anatomic alignment. No suspicious marrow signal or focal osseous lesion. Mild scattered type II endplate marrow signal changes The vertebral body heights are maintained. The intervertebral discs are of normal height and signal. No significant abnormalities of the thoracic spinal cord. No abnormal contrast enhancement. There are several small thoracic disc protrusions, largest at T10-T11 which in conjunction with facet arthropathy contributes to mild central spinal canal stenosis. No high-grade spinal canal stenosis or cord compression. No significant abnormalities of the paraspinal musculature. Limited evaluation of the intrathoracic structures without significant abnormalities. The descending thoracic aorta is of normal contour and caliber. Disc protrusion and associated canal stenosis at C6-C7 is better assessed on recent MRI of the cervical spine from 11/15/2022 Lumbar Spine: Postsurgical changes from L4-L5 instrumented posterior spinal fusion with interbody device in place. Mild leftward curvature of the lumbar spine No suspicious marrow signal or focal osseous lesion. No significant marrow edema. L3 inferior endplate Schmorl's node. Fatty endplate marrow signal changes at L3-L4 and L4-L5. The vertebral body heights are maintained. Disc desiccation and height loss at L3-L4 and mild disc desiccation at L2-L3. The conus medullaris terminates at the level of L1-L2. The distal spinal cord is normal in appearance. The cauda equina nerve roots appear normal. No significant abnormalities of the paraspinal musculature. Limited evaluation of the intra-abdominal structures without significant abnormalities. The abdominal aorta is of normal contour and caliber. SPINAL LEVELS: L1-L2: No significant spinal canal or neuroforaminal narrowing. L2-L3: Shallow disc bulge with left greater than right foraminal protrusions. Mild to moderate facet arthropathy. Ligamentum flavum thickening. No significant central spinal canal stenosis. Mild left subarticular zone narrowing. Moderate bilateral neural foraminal narrowing, left greater than right with possible impingement of the exiting left L2 nerve root. L3-L4: Mild facet arthropathy and ligamentum flavum thickening. Slightly decreased size of a central disc protrusion with improved caliber of the central spinal canal and mild residual canal stenosis. There is persistent effacement of the subarticular zones with likely mass effect on the traversing L4 nerve roots. Stable mild bilateral neural foraminal narrowing L4-L5: Postlaminectomy changes. No significant central spinal canal stenosis. Facet arthropathy. The neural foramina are partially obscured due to hardware-related susceptibility artifact. No evidence of high-grade or progressive foraminal stenosis. L5-S1: No significant spinal canal or neuroforaminal narrowing. Moderate facet arthropathy and mild endplate spurring. MR/MR thoracic spine wo/w con IMPRESSION: 1. No demyelinating lesions in the thoracic cord are identified 2. Post surgical changes from L4-L5 posterior decompression and instrumented posterior spinal fusion. There is adjacent segment disease at L3-L4 with progressive disc height loss and degenerative endplate changes but decreased size of a central disc protrusion resulting in improved caliber of the central spinal canal with mild residual narrowing and persistent effacement of the subarticular zones with likely mass effect on the traversing L4 nerve roots. 3. At L2-L3, there is moderate bilateral neural foraminal narrowing, left greater than right with possible impingement of the exiting left L2 nerve root.
[2022-11-16] MEDS: gadobutroL 10 ML VIAL IVPUSH (19:41)
== END 2022-11-16 18:15 | disposition home or self-care (01) ==
LOC: HO.MRI 18:14
PROVIDERS: PCP Internal Medicine; Visit Provider Psychiatry & Neurology Neurology
DX: M54.16 Radiculopathy, lumbar region (principal); G35 Multiple sclerosis
CPT/HCPCS: 72148; 72157; A9585

== ENCOUNTER 2023-08-05 08:25 | Outpatient (REF) | payer BC, SELFPAY ==
[2023-08-05 11:18] LABS: Baso%MD 1.2 %; Eos%MD 3.3 %; Hematocrit 41.8 % (37.0-47.0); Hemoglobin 13.7 g/dl (12.0-16.0); IG%MD 0.2 %; Lymph%MD 24.9 %; Mean Corpuscular HGB Conc 32.8 g/dl (31.0-35.0); Mean Corpuscular Hemoglobin 32.5 pg (27.0-33.0); Mean Corpuscular Volume 99.3 fL (80.0-98.0); Mean Platelet Volume 10.6 fL (9.4-12.3); Mono%MD 8.3 %; Neut%MD 62.1 %; Platelet Count 391 X10*3/uL (160-400); Red Blood Count 4.21 X10*6/uL (4.20-5.50); Red Cell Distribution Width 12.4 % (11.0-16.0); White Blood Count 4.2 X10*3/uL (4.8-10.8)
[2023-08-05 11:49] LABS: Band Neutrophils Percent 0 % (3-5); Basophils Percent Manual 1 % (0-2); Eosinophils Absolute Manual 0.1 X10*3/uL (0.0-0.4); Eosinophils Percent Manual 2 % (0-4); Lymphocytes Absolute Manual 0.8 X10*3/uL (1.2-4.9); Lymphocytes Percent Manual 19 % (20-40); Monocytes Absolute Manual 0.2 X10*3/uL (0.1-1.2); Monocytes Percent Manual 5 % (2-11); Neutrophils Absolute Manual 3.1 X10*3/uL (2.0-8.3); Neutrophils Percent Manual 73 % (45-73); Platelet Estimate NORMAL (NORMAL); Platelet Morphology Comment NORMAL; RBC Morphology NORMAL
[2023-08-05 11:52] LABS: Thyroid Stimulating Hormone 0.89 uIU/mL (0.32-4.0)
[2023-08-05 12:12] LABS: Alanine Aminotransferase 14 U/L (0-31); Albumin Level 4.1 g/dL (3.5-5.0); Alkaline Phosphatase 60 U/L (39-117); Anion Gap 14 (12-20); Aspartate Amino Transferase 17 U/L (5-31); Bilirubin Total 0.4 mg/dL (0.0-1.0); Blood Urea Nitrogen 17 mg/dL (9-16); Calcium 9.3 mg/dL (8.4-10.2); Carbon Dioxide 24 mmol/L (22-29); Chloride 107 mmol/L (96-108); Cholesterol 195 mg/dL (<200); Estimated Glomerular Filt Rate > 60; Glucose Fasting 90 mg/dL (60-99); HDL Cholesterol 74 mg/dL (>40); LDL Cholesterol Calculated 112 mg/dL (<100); Potassium 4.2 mmol/L (3.3-5.1); Sodium 141 mmol/L (135-145); Total Protein 6.9 g/dL (6.5-8.0); Triglycerides 49 mg/dL (<150)
[2023-08-05 12:29] LABS: TSH reflex Free T4 0.86 uIU/mL (0.32-4.0); Vitamin D 25-OH Total 18.5 ng/mL (>30)
[2023-08-05 12:37] LABS: Vitamin B12 333 pg/mL (200-900)
[2023-08-07 18:09] LABS: Thyroglobulin Antibodies <1 IU/mL (< or = 1)
[2023-08-09 04:08] LABS: Thyroglobulin Antibody <1 IU/mL (<=1); Thyroglobulin Level <0.1 ng/mL
== END 2023-08-05 08:26 | disposition home or self-care (01) ==
LOC: HO.HMGCLDS 08:25
PROVIDERS: PCP Internal Medicine; Referring Provider Internal Medicine Endocrinology, Diabetes & Metabolism; Visit Provider Internal Medicine
DX: Z00.00 Encounter for general adult medical examination without abnormal findings (principal); E55.9 Vitamin D deficiency, unspecified; E53.8 Deficiency of other specified B group vitamins; E89.0 Postprocedural hypothyroidism; Z85.850 Personal history of malignant neoplasm of thyroid
CPT/HCPCS: 36415; 80053; 80061; 82306; 82607; 82746; 84432; 84443; 85007; 85027; 86800

== ENCOUNTER 2023-08-07 13:06 | Outpatient (AMB) | payer BC, SELFPAY ==
[2023-08-07 13:33] VITALS: BP 96/64; PULSE 77; O2SAT 97; BMI 33.5
--- NOTE | 2023-08-07 13:33 | MHC.PC.OV ---
Vital Signs 08/07/23 13:33 Height 5 ft 4 in Weight 195 lb BMI 33.5 BP 96/64 Blood Pressure Location Rt brachial Position Sitting Pulse 77 Pulse Source Pulse Oximeter Pulse Oximetry (%) 97 Oxygen Delivery Method Room Air Intake Visit Reasons: Annual PE Intake Note: Pt is here today for PE. Allergies latex [LATEX] Allergy (Intermediate, Verified 08/07/23 13:35) HIVES morphine [MORPHINE] Allergy (Intermediate, Verified 08/07/23 13:35) HIVES acetaminophen [From PERCOCET] Allergy (Unknown, Verified 08/07/23 13:35) RASH Interferons [INTERFERONS] Allergy (Unknown, Verified 08/07/23 13:35) ANAPHYLAXIS oxycodone [From PERCOCET] Allergy (Unknown, Verified 08/07/23 13:35) RASH Medication List - Last Reconciled 08/07/23 by Helen Hines MD albuterol sulfate 90 mcg/actuation (ProAir HFA) 1 inh inhalation QID PRN cholecalciferol (vitamin D3) 25 mcg PO DAILY cyanocobalamin (vitamin B-12) 1,000 mcg subcut QWEEK 30 weeks dimethyl fumarate 240 mg PO BID levothyroxine 175 mcg PO DAILY sertraline 100 mg PO DAILY syringe with needle (BD Luer-Krystal Syringe) Use to inject vitamin B 12 weekly Tobacco use date assessed: 08/07/23 Dental Screening Dental Screen Date: 08/07/23 Did you have a dental visit in the last 12 months?: Yes Did you have a dental problem in the last 6 months where you did not have access to dental care?: No Was dental information given to patient?: Patient has dentist HPI Annual PE HPI Details Pt presents for PE. She complains of chronic lower back pain and has been to pain management getting epidural injections with some relief. Patient follows up with Neurology for MS. [facility] Medical History (Updated 08/07/23 @ 14:01 by Helen Hines MD) Vitamin B12 deficiency Bunion of great toe Endometrial polyp Dysmenorrhea Spinal stenosis Precancerous lesion Annual physical exam Mammogram normal Normal Pap smear History of atypical skin mole Multiple sclerosis Eczema Psoriasis Papillary thyroid carcinoma Asthma Arthritis Surgical History Hx of hysterectomy H/O left knee surgery H/O spinal fusion H/O total thyroidectomy History of section Family History Father Hodgkins disease Heart disease Mother Degenerative disk disease Skin cancer Social History Housing: House Alcohol intake: current Alcohol intake frequency: holidays/special occasions only Patient Tobacco Use Status: Never used Tobacco e-Cigarette/Vaping Use: Never Used service: No Current occupational status: employed Cognitive needs: No Hearing needs: No Vision needs: Yes Questionnaire PHQ-9 Over the last 2 weeks, how often have you been bothered by any of the following problems? 1. Little interest or pleasure in doing things: several days 2. Feeling down, depressed, or hopeless: not at all 3. Trouble falling or staying asleep, or sleeping too much: not at all 4. Feeling tired or having little energy: more than half the days 5. Poor appetite or overeating: not at all 6. Feeling bad about yourself - or that you are a failure or have let yourself or your family down: not at all 7. Trouble concentrating on things, such as reading the newspaper or watching television: several days 8. Moving or speaking so slowly that other people could have noticed. Or the opposite - being so fidgety or restless that you have been moving around a lot more than usual: not at all 9. Thoughts that you would be better off or of hurting yourself in some way: not at all Total score: 4 Depression Screening Interpretation: Negative Depression Screening Done: Yes Source: Developed by Drs. Marlo Blevins, Mirtha Osborne, Erik Soto and colleagues, with an educational mor from [employer]. Thrive Questionnaire Date Thrive assessed: 08/07/23 I am a: Patient What is your living situation today?: I have a steady place to live Within the past 12 months, did the food you bought not last and you didn't have the money to get more?: Never true Within the past 12 months, did you worry whether your food would run out before you got money to buy more?: Never true Do you have trouble paying for medicines?: No Do you have trouble getting transportation to medical appointments?: No Do you have trouble paying your heating and electricity bill?: No Do you have trouble taking care of your child, family member or friend?: No Do you have trouble with day-to-day activities such as bathing, preparing meals, shopping, managing finances, etc.?: No Are you currently unemployed and looking for a job?: No Are you interested in more education?: No Please select the resources that you would like help with: None THRIVE Score: 0 AUDIT C Alcohol Use Questionnaire (AUDIT-C) 1. How often do you have a drink containing alcohol?: Monthly or less 2. How many drinks containing alcohol do you have on a typical day when you are drinking?: 1 or 2 3. How often do you have six or more drinks on one occasion?: Never Total Score: 1 JENNIFER-7 AMB Questionnaire JENNIFER-7 Date JENNIFER - 7 assessed: 08/07/23 Feeling nervous, anxious, or on edge: 0 = Not at all Not being able to stop or control worryin = Not at all Worrying too much about different things: 2 = More than half the days Trouble relaxin = Several days Being so restless that it is hard to sit still: 0 = Not at all Becoming easily annoyed or irritable: 1 = Several days Feeling afraid as if something awful might happen: 0 = Not at all Total JENNIFER-7 score (0-4 normal; 5-9 mild; 10-14 moderate; 15-21 severe): 4 Source: Developed by Drs. Marlo Blevins, Mirtha Osborne, Erik Soto and colleagues, with an educational mor from [employer]. Review of Systems Const All systems reviewed & are unremarkable except as noted in HPI and below Reports no additional complaints Eyes Reports no additional complaints ENT Reports no additional complaints Card Reports no additional complaints Resp Reports no additional complaints GI Reports no additional complaints Reports no additional complaints Physical exam (Primary Care) Vital Signs: Last Vital Signs Pulse 77 08/07/23 13:33 BP 96/64 08/07/23 13:33 Pulse Ox 97 08/07/23 13:33 Oxygen Delivery Method Room Air 08/07/23 13:33 BMI result Body Mass Index 33.5 Tobacco/Smoking Status: Tobacco use Status Tobacco use date assessed 08/07/23 08/07/23 13:40 Patient Tobacco Use Status Never used Tobacco 08/07/23 13:40 e-Cigarette/Vaping Use Never Used 08/07/23 13:40 PHQ-9: PHQ-9 Score PHQ-9: Total score 4 08/07/23 13:40 Depression Screening Interpretation: Negative Thrive Assessment: Date of Thrive Assessment Date Thrive assessed 08/07/23 08/07/23 13:40 Const General: no acute distress HENMT Head: Yes normal to inspection Ears: hearing grossly normal bilaterally General nose exam: Normal external nose present Face and sinus: Yes normal facial exam Throat: Yes posterior oropharynx normal Eyes General: appearance normal, both eyes and all related structures Neck Neck: Yes no lymphadenopathy and Yes supple Resp Effort & Inspection: normal respiratory effort Auscultation: clear to auscultation bilaterally Cardio Rhythm: regular rhythm Heart sounds: S1 normal heart sound present and S2 normal heart sound present Back/Spine/Pelvis Thoracic/Lumbar Spine: paraspinal muscle tenderness bilaterally Assessment and Plan Assessment & Plan (1) Annual physical exam: Code(s): Z00.00 - Encounter for general adult medical examination without abnormal findings Plan: Well-balanced diet regular physical activity discussed with the patient. Mammogram will be scheduled patient declined colonoscopy Cologuard is ordered (2) Vitamin B12 deficiency: Comment: Not improved on oral B12 supplement Code(s): E53.8 - Deficiency of other specified B group vitamins Plan: Patient was advised to restart B12 injections every 2 weeks and will be checked Vit B12 level in 2 months (3) Vitamin D deficiency: Code(s): E55.9 - Vitamin D deficiency, unspecified Plan: Restart 2000 units of vitamin-D (4) Spinal stenosis: Comment: cervical and lumbar f/u , s/p 2 fusions Code(s): M48.00 - Spinal stenosis, site unspecified Plan: Follow-up with pain management (5) Papillary thyroid carcinoma: Comment: s/p thyroidectomy - 2.2 x 1.6 x 1.6cm right lobe , f/u Code(s): C73 - Malignant neoplasm of thyroid gland Plan: Follow-up with endocrinology (6) Multiple sclerosis: Comment: f/u with [facility] Code(s): G35 - Multiple sclerosis Plan: Follow-up with neurology Orders: Orders Vitamin B12 2 Months E53.8 - Deficiency of other specified B group vitamins, E55.9 - Vitamin D deficiency, unspecified, Z00.00 - Encounter for general adult medical examination without abnormal findings MM screening mammo BI Today Z12.31 - Encounter for screening mammogram for malignant neoplasm of breast TSH reflex Free T4 1 Year C73 - Malignant neoplasm of thyroid gland, E53.8 - Deficiency of other specified B group vitamins, E55.9 - Vitamin D deficiency, unspecified, Z00.00 - Encounter for general adult medical examination without abnormal findings Vitamin B12 and Folate 1 Year C73 - Malignant neoplasm of thyroid gland, E53.8 - Deficiency of other specified B group vitamins, E55.9 - Vitamin D deficiency, unspecified, Z00.00 - Encounter for general adult medical examination without abnormal findings Vitamin D 25-OH Total 1 Year C73 - Malignant neoplasm of thyroid gland, E53.8 - Deficiency of other specified B group vitamins, E55.9 - Vitamin D deficiency, unspecified, Z00.00 - Encounter for general adult medical examination without abnormal findings Vitamin D 25-OH Total 2 Months E55.9 - Vitamin D deficiency, unspecified Comprehensive [place]. Panel Fast 1 Year C73 - Malignant neoplasm of thyroid gland, E53.8 - Deficiency of other specified B group vitamins, E55.9 - Vitamin D deficiency, unspecified, Z00.00 - Encounter for general adult medical examination without abnormal findings Complete Blood Count Auto Diff 1 Year C73 - Malignant neoplasm of thyroid gland, E53.8 - Deficiency of other specified B group vitamins, E55.9 - Vitamin D deficiency, unspecified, Z00.00 - Encounter for general adult medical examination without abnormal findings Lipid Panel 1 Year C73 - Malignant neoplasm of thyroid gland, E53.8 - Deficiency of other specified B group vitamins, E55.9 - Vitamin D deficiency, unspecified, Z00.00 - Encounter for general adult medical examination without abnormal findings Referrals Cologuard Test Z12.11 - Encounter for screening for malignant neoplasm of colon, Z12.12 - Encounter for screening for malignant neoplasm of rectum Medications: New cholecalciferol (vitamin D3) 50 mcg PO DAILY 90 tabs 3RF Coding Level of Care Code Est Pt Prev Care 40-64y(73040) Diagnoses Annual physical exam Z00.00 Vitamin B12 deficiency E53.8 Vitamin D deficiency E55.9 Spinal stenosis M48.00 Papillary thyroid carcinoma C73 Multiple sclerosis G35
== END 2023-08-07 13:54 | disposition home or self-care (01) ==
PROVIDERS: PCP Internal Medicine; Visit Provider Internal Medicine
DX: Z00.00 Encounter for general adult medical examination without abnormal findings (principal); C73 Malignant neoplasm of thyroid gland; G35 Multiple sclerosis; E53.8 Deficiency of other specified B group vitamins; E55.9 Vitamin D deficiency, unspecified; M48.00 Spinal stenosis, site unspecified
CPT/HCPCS: 99396

== ENCOUNTER 2023-12-08 12:52 | Outpatient (AMB) | payer BC, SELFPAY ==
--- NOTE | 2023-12-08 13:06 | MHC.PC.OV ---
Vital Signs 12/08/23 13:11 Height 5 ft 4 in Weight 191 lb BMI 32.8 BP 110/74 Blood Pressure Location Lt brachial Position Sitting Pulse 76 Pulse Source Pulse Oximeter Pulse Oximetry (%) 98 Oxygen Delivery Method Room Air Intake Visit Reasons: Follow up with new meds Intake Note: patient here for wegovy f/u. Allergies latex [LATEX] Allergy (Intermediate, Verified 12/08/23 13:12) HIVES morphine [MORPHINE] Allergy (Intermediate, Verified 12/08/23 13:12) HIVES acetaminophen [From PERCOCET] Allergy (Unknown, Verified 12/08/23 13:12) RASH Interferons [INTERFERONS] Allergy (Unknown, Verified 12/08/23 13:12) ANAPHYLAXIS oxycodone [From PERCOCET] Allergy (Unknown, Verified 12/08/23 13:12) RASH Medication List - Last Reconciled 12/08/23 by Helen Hines MD albuterol sulfate 90 mcg/actuation (ProAir HFA) 1 inh inhalation QID PRN cholecalciferol (vitamin D3) 50 mcg PO DAILY cladribine(multiple sclerosis) ([employer] (10 tablet pack)) 10 mg PO DAILY cyanocobalamin (vitamin B-12) 1,000 mcg subcut QWEEK 30 weeks dimethyl fumarate 240 mg PO BID levothyroxine 175 mcg PO DAILY semaglutide (weight loss) (Wegovy) 0.25 mg (0.5 mL) subcut QWEEK sertraline 100 mg PO DAILY syringe with needle (BD Luer-Krystal Syringe) Use to inject vitamin B 12 weekly Tobacco use date assessed: 08/07/23 Dental Screening Dental Screen Date: 08/07/23 HPI Follow up with new meds HPI Details Pt presents for f/u on weight management program. She started Wegovy 2 months ago and has lost 5 lb. Patient has been following weight watchers up for caloric intake. She is planning to start exercising. [facility] Medical History (Updated 12/08/23 @ 13:48 by Helen Hines MD) Vitamin B12 deficiency Bunion of great toe Endometrial polyp Dysmenorrhea Spinal stenosis Precancerous lesion Annual physical exam Mammogram normal Normal Pap smear History of atypical skin mole Multiple sclerosis Eczema Psoriasis Papillary thyroid carcinoma Asthma Arthritis Surgical History Hx of hysterectomy H/O left knee surgery H/O spinal fusion H/O total thyroidectomy History of section Family History Father Hodgkins disease Heart disease Mother Degenerative disk disease Skin cancer Social History Housing: House Alcohol intake: current Alcohol intake frequency: holidays/special occasions only Patient Tobacco Use Status: Never used Tobacco e-Cigarette/Vaping Use: Never Used service: No Current occupational status: employed Cognitive needs: No Hearing needs: No Vision needs: Yes Questionnaire PHQ-9 Over the last 2 weeks, how often have you been bothered by any of the following problems? 1. Little interest or pleasure in doing things: not at all 2. Feeling down, depressed, or hopeless: not at all 3. Trouble falling or staying asleep, or sleeping too much: not at all 4. Feeling tired or having little energy: several days 5. Poor appetite or overeating: not at all 6. Feeling bad about yourself - or that you are a failure or have let yourself or your family down: not at all 7. Trouble concentrating on things, such as reading the newspaper or watching television: not at all 8. Moving or speaking so slowly that other people could have noticed. Or the opposite - being so fidgety or restless that you have been moving around a lot more than usual: not at all 9. Thoughts that you would be better off or of hurting yourself in some way: not at all Total score: 1 Depression Screening Interpretation: Negative Depression Screening Done: Yes 68261 - PHQ-9 Billing: Yes Source: Developed by Drs. Marlo Blevins, Mirtha Osborne, Erik Soto and colleagues, with an educational mor from [employer]. Thrive Questionnaire Date Thrive assessed: 08/07/23 I am a: Patient What is your living situation today?: I have a steady place to live Within the past 12 months, did the food you bought not last and you didn't have the money to get more?: Never true Within the past 12 months, did you worry whether your food would run out before you got money to buy more?: Never true Do you have trouble paying for medicines?: Yes Do you have trouble getting transportation to medical appointments?: No Do you have trouble paying your heating and electricity bill?: No Do you have trouble taking care of your child, family member or friend?: No Do you have trouble with day-to-day activities such as bathing, preparing meals, shopping, managing finances, etc.?: No Are you currently unemployed and looking for a job?: No Are you interested in more education?: No Please select the resources that you would like help with: None Currently or been in a relationship where the following occur: No concerns reported THRIVE Score: 0 AUDIT C Alcohol Use Questionnaire (AUDIT-C) 1. How often do you have a drink containing alcohol?: Monthly or less 2. How many drinks containing alcohol do you have on a typical day when you are drinking?: 1 or 2 3. How often do you have six or more drinks on one occasion?: Never Total Score: 1 JENNIFER-7 AMB Questionnaire JENNIFER-7 Date JENNIFER - 7 assessed: 08/07/23 Feeling nervous, anxious, or on edge: 0 = Not at all Not being able to stop or control worryin = Not at all Worrying too much about different things: 0 = Not at all Trouble relaxin = Not at all Being so restless that it is hard to sit still: 0 = Not at all Becoming easily annoyed or irritable: 0 = Not at all Feeling afraid as if something awful might happen: 0 = Not at all Total JENNIFER-7 score (0-4 normal; 5-9 mild; 10-14 moderate; 15-21 severe): 0 Source: Developed by Drs. Marlo Blevins, Mirtha Osborne, Erik Soto and colleagues, with an educational mor from [employer]. Review of Systems Const All systems reviewed & are unremarkable except as noted in HPI and below Eyes Reports no additional complaints ENT Reports no additional complaints Card Reports no additional complaints Resp Reports no additional complaints GI Reports no additional complaints Physical exam (Primary Care) Vital Signs: Last Vital Signs Pulse 76 12/08/23 13:11 BP 110/74 12/08/23 13:11 Pulse Ox 98 12/08/23 13:11 Oxygen Delivery Method Room Air 12/08/23 13:11 BMI result Body Mass Index 32.8 Tobacco/Smoking Status: Tobacco use Status Tobacco use date assessed 08/07/23 12/08/23 13:08 Patient Tobacco Use Status Never used Tobacco 12/08/23 13:08 e-Cigarette/Vaping Use Never Used 12/08/23 13:08 PHQ-9: PHQ-9 Score PHQ-9: Total score 1 12/08/23 13:08 Depression Screening Interpretation: Negative Thrive Assessment: Date of Thrive Assessment Date Thrive assessed 08/07/23 12/08/23 13:08 Currently or been in a relationship where the following occur: No concerns reported Const General: no acute distress Resp Effort & Inspection: normal respiratory effort Auscultation: clear to auscultation bilaterally Cardio Rhythm: regular rhythm Heart sounds: S1 normal heart sound present and S2 normal heart sound present GI Inspection: Yes normal to inspection Palpation (GI): Soft to palpation Percussion: Yes normal to percussion Assessment and Plan Assessment & Plan (1) Vitamin B12 deficiency: Comment: oral B12 supplement Code(s): E53.8 - Deficiency of other specified B group vitamins Plan: Patient will try oral supplement of B12 and recheck level in 2 months (2) Multiple sclerosis: Comment: f/u with [facility] Code(s): G35 - Multiple sclerosis Plan: Follow-up with neurology (3) Papillary thyroid carcinoma: Comment: s/p thyroidectomy - 2.2 x 1.6 x 1.6cm right lobe , f/u Code(s): C73 - Malignant neoplasm of thyroid gland Plan: Follow-up with endocrinology (4) Obesity: Code(s): E66.9 - Obesity, unspecified Plan: Increase Wegovy to 0.5 mg for 1 month and then 1 mg weekly for another month. Continue weight watchers program for caloric intake increase physical activity follow-up in 2 months Orders: Orders Vitamin B12 and Folate 2 Months E53.8 - Deficiency of other specified B group vitamins Medications: New Wegovy (semaglutide (weight loss)) 0.5 mg (0.5 mL) subcut QWEEK 2 mL 0RF NS cyanocobalamin (vitamin B-12) 1,000 mcg PO DAILY 90 tabs 2RF Discontinued cholecalciferol (vitamin D3) Discontinued Reason: Doctor's Order 50 mcg PO DAILY 90 tabs 3RF semaglutide (weight loss) (Michelle) Discontinued Reason: Doctor's Order 0.25 mg (0.5 mL) subcut QWEEK 2 mL 1RF Coding Level of Care Code Est Pt Level 3 (02642) Diagnoses Vitamin B12 deficiency E53.8 Multiple sclerosis G35 Papillary thyroid carcinoma C73 Obesity E66.9
[2023-12-08 13:11] VITALS: BP 110/74; PULSE 76; O2SAT 98; BMI 32.8
== END 2023-12-08 13:49 | disposition home or self-care (01) ==
PROVIDERS: PCP Internal Medicine; Visit Provider Internal Medicine
DX: G35 Multiple sclerosis (principal); C73 Malignant neoplasm of thyroid gland; E66.9 Obesity, unspecified; Z68.32 Body mass index [BMI] 32.0-32.9, adult; E53.8 Deficiency of other specified B group vitamins
CPT/HCPCS: 99213

== ENCOUNTER 2024-02-09 14:31 | Outpatient (AMB) | payer BC, SELFPAY ==
[2024-02-09 14:33] VITALS: BP 100/70; PULSE 80; O2SAT 97; BMI 31.2
--- NOTE | 2024-02-09 14:33 | MHC.PC.OV ---
Vital Signs 02/09/24 14:33 Height 5 ft 4 in Weight 182 lb BMI 31.2 BP 100/70 Blood Pressure Location Lt brachial Position Sitting Pulse 80 Pulse Source Pulse Oximeter Pulse Oximetry (%) 97 Oxygen Delivery Method Room Air Intake Visit Reasons: 2 month follow up Allergies latex [LATEX] Allergy (Intermediate, Verified 02/09/24 14:33) HIVES morphine [MORPHINE] Allergy (Intermediate, Verified 02/09/24 14:33) HIVES acetaminophen [From PERCOCET] Allergy (Unknown, Verified 02/09/24 14:33) RASH Interferons [INTERFERONS] Allergy (Unknown, Verified 02/09/24 14:33) ANAPHYLAXIS oxycodone [From PERCOCET] Allergy (Unknown, Verified 02/09/24 14:33) RASH Medication List - Last Reconciled 02/09/24 by Helen Hines MD albuterol sulfate 90 mcg/actuation (ProAir HFA) 1 inh inhalation QID PRN cladribine(multiple sclerosis) (Mavenclad (10 tablet pack)) 10 mg PO DAILY levothyroxine 175 mcg PO DAILY sertraline 100 mg PO DAILY syringe with needle (BD Luer-Krystal Syringe) Use to inject vitamin B 12 weekly Wegovy (semaglutide (weight loss)) 0.5 mg (0.5 mL) subcut QWEEK NS Tobacco use date assessed: 02/09/24 Dental Screening Dental Screen Date: 02/09/24 Did you have a dental visit in the last 12 months?: Yes Did you have a dental problem in the last 6 months where you did not have access to dental care?: No Was dental information given to patient?: Patient has dentist HPI 2 month follow up HPI Details Patient presents for the follow-up of weight loss program. She has been taking Wegovy for 3 months and lost 15 lb. She has been tolerating 0.5 mg weekly dose and exercising eating well-balanced diet. Patient has not been taking oral B12 supplement and discontinue injections 3 months ago. [facility] Medical History (Updated 02/09/24 @ 14:59 by Helen Hines MD) Vitamin B12 deficiency Bunion of great toe Endometrial polyp Dysmenorrhea Spinal stenosis Precancerous lesion Annual physical exam Mammogram normal Normal Pap smear History of atypical skin mole Multiple sclerosis Eczema Psoriasis Papillary thyroid carcinoma Asthma Arthritis Surgical History Hx of hysterectomy H/O left knee surgery H/O spinal fusion H/O total thyroidectomy History of section Family History Father Hodgkins disease Heart disease Mother Degenerative disk disease Skin cancer Social History Housing: House Alcohol intake: current Alcohol intake frequency: holidays/special occasions only Patient Tobacco Use Status: Never used Tobacco e-Cigarette/Vaping Use: Never Used service: No Current occupational status: employed Cognitive needs: No Hearing needs: No Vision needs: Yes Questionnaire Thrive Questionnaire Date Thrive assessed: 08/07/23 JENNIFER-7 AMB Questionnaire JENNIFER-7 Date JENNIFER - 7 assessed: 08/07/23 Source: Developed by Drs. Marlo Blevins, Mirtha Osborne, Erik Soto and colleagues, with an educational mor from [employer]. Review of Systems Const All systems reviewed & are unremarkable except as noted in HPI and below Card Reports no additional complaints Resp Reports no additional complaints GI Reports no additional complaints Reports no additional complaints Physical exam (Primary Care) Vital Signs: Last Vital Signs Pulse 80 02/09/24 14:33 BP 100/70 02/09/24 14:33 Pulse Ox 97 02/09/24 14:33 Oxygen Delivery Method Room Air 02/09/24 14:33 BMI result Body Mass Index 31.2 Tobacco/Smoking Status: Tobacco use Status Tobacco use date assessed 02/09/24 02/09/24 14:38 Patient Tobacco Use Status Never used Tobacco 02/09/24 14:38 e-Cigarette/Vaping Use Never Used 02/09/24 14:38 Thrive Assessment: Date of Thrive Assessment Date Thrive assessed 08/07/23 02/09/24 14:38 Const General: no acute distress Neck Neck: Yes supple Resp Effort & Inspection: normal respiratory effort Auscultation: clear to auscultation bilaterally Cardio Rhythm: regular rhythm Heart sounds: S1 normal heart sound present and S2 normal heart sound present GI Inspection: Yes normal to inspection Palpation (GI): Soft to palpation Percussion: Yes normal to percussion Auscultation: normal bowel sounds Coding Level of Care Code Est Pt Level 4 (56049) Diagnoses Vitamin B12 deficiency E53.8 Vitamin D deficiency E55.9 Obesity E66.9 Multiple sclerosis G35 Assessment & Plan Assessment & Plan (1) Vitamin B12 deficiency: Comment: Restart B12 injections every 2 weeks Code(s): E53.8 - Deficiency of other specified B group vitamins Category: Medical Plan: Patient will restart B12 injections every 2 weeks and check B12 level in 6 weeks. (2) Vitamin D deficiency: Code(s): E55.9 - Vitamin D deficiency, unspecified Category: Medical Plan: Continue vitamin-D supplement check the level (3) Obesity: Code(s): E66.9 - Obesity, unspecified Category: Medical Plan: Patient will continue 0.5 mg of Wegovy for another month decrease caloric intake increase physical activity. Patient will increase the dose to 1 mg the following month if needed. (4) Multiple sclerosis: Comment: f/u with [facility] Code(s): G35 - Multiple sclerosis Category: Medical Plan: Follow-up with neurology Orders: Orders Vitamin B12 and Folate 6 Weeks E53.8 - Deficiency of other specified B group vitamins, E55.9 - Vitamin D deficiency, unspecified Vitamin D 25-OH Total 6 Weeks E53.8 - Deficiency of other specified B group vitamins, E55.9 - Vitamin D deficiency, unspecified Medications: Refilled cyanocobalamin (vitamin B-12) 1,000 mcg subcut QWEEK 30 weeks 10 mL 3RF Wegovy (semaglutide (weight loss)) 0.5 mg (0.5 mL) subcut QWEEK 2 mL 4RF NS
== END 2024-02-09 14:55 | disposition home or self-care (01) ==
LOC: HO.HMCC 14:31
PROVIDERS: PCP Internal Medicine; Visit Provider Internal Medicine
DX: G35 Multiple sclerosis (principal); E53.8 Deficiency of other specified B group vitamins; E66.9 Obesity, unspecified; Z68.31 Body mass index [BMI] 31.0-31.9, adult; E55.9 Vitamin D deficiency, unspecified

== ENCOUNTER 2024-04-17 09:18 | Outpatient (AMB) | payer BC, SELFPAY ==
[2024-04-17 10:11] VITALS: BP 100/66; PULSE 86; TEMP 36.6; O2SAT 97
--- NOTE | 2024-04-17 10:11 | MHC.OFFWIV ---
Intake Vital Signs 04/17/24 10:11 Height 5 ft 4 in Weight 175 lb BMI 30.0 BP 100/66 Blood Pressure Location Rt brachial Position Sitting Pulse 86 Pulse Source Pulse Oximeter Temp 97.8 F Temp Source Oral Pulse Oximetry (%) 97 Oxygen Delivery Method Room Air Intake Visit Reasons: EP fever, coughing, headaches, weakness Intake Note: Patient here for fever, cough, headaches, weakness, and slight chest tightness that has been present for 3 days. pt states her son was just diagnosed with Flu. Patient Tobacco Use Status: Never used Tobacco Allergies latex [LATEX] Allergy (Intermediate, Verified 04/17/24 10:17) HIVES morphine [MORPHINE] Allergy (Intermediate, Verified 04/17/24 10:17) HIVES acetaminophen [From PERCOCET] Allergy (Unknown, Verified 04/17/24 10:17) RASH Interferons [INTERFERONS] Allergy (Unknown, Verified 04/17/24 10:17) ANAPHYLAXIS oxycodone [From PERCOCET] Allergy (Unknown, Verified 04/17/24 10:17) RASH Do you need a note to return to daycare/school/sports/work: Yes HPI HPI Comments History of Present Illness Details Patient presents with cold symptoms Ongoing x 3 days Her son + influenza at home Fever 99 low grade yesterday + congestion, body aches, fatigue She has been using tylenol/motrin. Last dose was this am Normal appetite but slight nausea. No vomiting, diarrhea Hx of asthma, with slight SOB. Has ProAir at home [facility] Medical History (Updated 04/17/24 @ 10:36 by Sonia Del Castillo PA-C) Vitamin B12 deficiency Bunion of great toe Endometrial polyp Dysmenorrhea Spinal stenosis Precancerous lesion Annual physical exam Mammogram normal Normal Pap smear History of atypical skin mole Multiple sclerosis Eczema Psoriasis Papillary thyroid carcinoma Asthma Arthritis Surgical History Hx of hysterectomy H/O left knee surgery H/O spinal fusion H/O total thyroidectomy History of section Family History Father Hodgkins disease Heart disease Mother Degenerative disk disease Skin cancer Social History Housing: House Alcohol intake: current Alcohol intake frequency: holidays/special occasions only Patient Tobacco Use Status: Never used Tobacco e-Cigarette/Vaping Use: Never Used service: No Current occupational status: employed Cognitive needs: No Hearing needs: No Vision needs: Yes Review of Systems Const Reports chills, Reports fever(s), Reports malaise and Denies poor appetite Eyes Denies change in vision ENT Denies dizziness, Denies otalgia, Reports nasal discharge and Denies sore throat Card Denies chest pain and Reports dyspnea (minimal. Hx asthma) Resp Reports cough and Reports dyspnea (minimal. Hx asthma) GI Denies abdominal pain, Denies diarrhea and Denies vomiting Musc Reports myalgias Neuro Denies dizziness Physical Exam Vital Signs: Last Vital Signs Temp 97.8 F 04/17/24 10:11 Pulse 86 04/17/24 10:11 BP 100/66 04/17/24 10:11 Pulse Ox 97 04/17/24 10:11 Oxygen Delivery Method Room Air 04/17/24 10:11 BMI result Body Mass Index 30.0 General: Non-toxic, NAD. Speaking full sentences. Skin: Warm dry throughout Eye: EOMI HENT: Airway patent. Uvula midline. No pharyngeal erythema or edema. 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 +rhonirrhea Bilateral canals clear. TM non-erythematous, non-bulging. No TM perforation or hemotympanum noted. Respiratory: CTA bilaterally. No wheezes, rales or rhonchi Cardiac: RRR. No murmur Neurology: Alert. No aphasia or facial droop. Gait without abnormality Psych: Good mood and affect Assessment & Plan Assessment & Plan (1) Influenza-like illness: Code(s): J11.1 - Influenza due to unidentified influenza virus with other respiratory manifestations Plan: Patient seen and evaluated. Son and most likely + flu at home This is most likely flubut swab will not international exchange coordinator Fluids, rest, fever control Tessalon for cough Lungs CTA ER s/s discussed as pt has MS and should monitor for worsening symptoms on immunosupressant drug Patient gave verbal understanding and had no additional questions or concerns at time of discharge All questions answered Medications: New benzonatate 200 mg PO BID-TID PRN 30 caps 0RF cough Coding Level of Care Code Est Pt Level 3 (68308) Diagnoses Influenza-like illness J11.1
== END 2024-04-17 10:40 | disposition home or self-care (01) ==
PROVIDERS: PCP Internal Medicine; Visit Provider Physician Assistant
DX: J11.1 Influenza due to unidentified influenza virus with other respiratory manifestations (principal)

== ENCOUNTER 2024-05-04 10:44 | Outpatient (REF) | payer BC, SELFPAY ==
--- NOTE | ~2024-05-04 | XR_ITS ---
CLINICAL HISTORY: R05.9 - Cough, unspecified 2 view chest x-ray. Comparison: None Findings: The lungs are adequately expanded. No focal consolidation. No effusion or pneumothorax. Cardiac and mediastinal contours are within normal limits. No acute osseous abnormality Impression: No acute process. This document has been electronically signed by: Regis Lopez MD on 05/04/2024 11:35:59
== END 2024-05-04 10:45 | disposition home or self-care (01) ==
LOC: HO.HMGCX 10:44
PROVIDERS: PCP Internal Medicine; Visit Provider Nurse Practitioner Family
DX: R05.1 Acute cough (principal); G35 Multiple sclerosis; R68.89 Other general symptoms and signs
CPT/HCPCS: 71046

== ENCOUNTER 2024-05-04 10:44 | Outpatient (AMB) | payer BC, SELFPAY ==
[2024-05-04 10:49] VITALS: BP 110/70; PULSE 66; TEMP 37.4; O2SAT 99
--- NOTE | 2024-05-04 10:49 | AM.OFFWIN_ITS ---
Intake Vital Signs 05/04/24 10:49 Height 5 ft 4 in Weight 175 lb BMI 30.0 BP 110/70 Blood Pressure Location Rt brachial Position Sitting Pulse 66 Pulse Source Pulse Oximeter Temp 99.4 F Temp Source Oral Pulse Oximetry (%) 99 Intake Visit Reasons: EP- Cough, STERLING, fatigue Intake Note: pt is here for cough, fatigue Patient Tobacco Use Status: Never used Tobacco Allergies latex [LATEX] Allergy (Intermediate, Verified 05/04/24 10:53) HIVES morphine [MORPHINE] Allergy (Intermediate, Verified 05/04/24 10:53) HIVES acetaminophen [From PERCOCET] Allergy (Unknown, Verified 05/04/24 10:53) RASH Interferons [INTERFERONS] Allergy (Unknown, Verified 05/04/24 10:53) ANAPHYLAXIS oxycodone [From PERCOCET] Allergy (Unknown, Verified 05/04/24 10:53) RASH Medication List - Last Reconciled 05/04/24 by Nathaly Agee, [employer]- albuterol sulfate 90 mcg/actuation (ProAir HFA) 1 inh inhalation QID PRN benzonatate 200 mg PO BID-TID PRN cyanocobalamin (vitamin B-12) mcg IM levothyroxine 175 mcg PO DAILY ofatumumab (Kesimpta Pen) mg subcut sertraline 100 mg PO DAILY syringe with needle (BD Luer-Krystal Syringe) Use to inject vitamin B 12 weekly valacyclovir 1,000 mg PO DIRECTED Wegovy (semaglutide (weight loss)) 0.5 mg (0.5 mL) subcut QWEEK NS Do you need a note to return to daycare/school/sports/work: No HPI HPI Comments History of Present Illness Details History of Present Illness The patient is a 48-year-old female presenting with persistent cough and fatigue. She initially began experiencing cold symptoms on April 14, 2024, after being exposed to a family member with influenza. These symptoms included a low-grade fever and were managed with Tesselon, as influenza was suspected. The patient has a medical history significant for asthma and Multiple Sclerosis (MS), which is currently being treated with ongoing medication. Despite treatment, the patient reports a recurrence of symptoms on April 22, 2024, noting severe headache, nausea, and head cold, followed by increased cough. The patient expressed concern about potential chest complications due to prolonged symptoms and the inefficacy of ProAir and prescribed cough medications such as Mucinex. The patient is experiencing difficulty rebounding, likely influenced by the MS medication, which might be weakening her immune response during her first winter on this treatment. She did get better in between her first viral insult and her current complaints. Physical Exam General: Awake, alert. No apparent distress, mildly ill appearing Eyes: Sclera and conjunctiva clear bilaterally Nose: Nares with white d/c, turbinates pale and edematous, mild sinus tenderness with palpation bilateral maxillary sinuses, dry flaking skin around nostrils Ears: Tympanic membranes intact with congestions bilaterally R>L Throat: Moist mucosa membrane, pharynx within normal limits Cardiovascular: Regular rhythm,tachycardic worse after deep breaths Respiratory: faint forced exp wheezes throughout, after a few deep breaths did become SOB which resolved w/ rest, hacking cough Results CXR and Viral swab ordered Discussion Notes During the examination, I discussed with the patient the potential diagnoses and management plan. A chest X-ray was advised to rule out any possible chest infections, despite normal lung sounds during the exam. I also recommended obtaining a viral swab to test for COVID-19, influenza, and RSV, given the patient's exposure history and current symptoms. The patient was informed about the potential for prescribing Paxlovid, Tamiflu, or an antibiotic for bacterial sinusitis, depending on diagnostic outcomes. She has tolerated all of these meds in the past and reports doing well w Zpak if AB is required. It was emphasized that the results would be shared via the patient portal to expedite communication. We reviewed the importance of the patient's MS treatment in relation to her current symptoms. I advised the patient to monitor her symptoms closely and utilize the portal for any queries or updates. Patient Instructions - Proceed to obtain a chest X-ray immedi ately. - Follow through with the viral swab aracelis t for COVID-19, influenza, and RSV. - Continue monitoring the severity of sy mptoms and report any significant nilsa nges. - Use the patient portal to check for up dates and communicate any queries or concerns. - Wait for results before starting any n ew medication. Plan - For Asthma: Continue current managemen t with ProAir inhaler, despite noted lack of relief, and monitor for any exacerbation. - For Multiple Sclerosis: Monitor sympto ms carefully and consider the influence of MS medications on current health status. - For Upper Respiratory Infection: Obtai n chest X-ray and viral swab to determine next steps for treatment, which may include antiviral medications or antibiotics pending results. - Evaluate the need for antibiotics to t reat potential bacterial sinusitis after considering patient's history and examination findings. Patient was informed and verbally consented to the use of an ambient scribe for clinic note documentation during this visit. XR and viral swab negative. Start Opez message sent via portal to patient with plan @ 4711. [facility] Medical History (Updated 05/04/24 @ 11:10 by Nathaly Agee, [facility]) Annual physical exam Arthritis Asthma Bunion of great toe Dysmenorrhea Eczema Endometrial polyp History of atypical skin mole Mammogram normal Multiple sclerosis Normal Pap smear Papillary thyroid carcinoma Precancerous lesion Psoriasis Spinal stenosis Vitamin B12 deficiency Surgical History H/O left knee surgery H/O spinal fusion H/O total thyroidectomy History of section Hx of hysterectomy Family History Father Hodgkins disease Heart disease Mother Degenerative disk disease Skin cancer Social History Housing: House Alcohol intake: current Alcohol intake frequency: holidays/special occasions only Patient Tobacco Use Status: Never used Tobacco e-Cigarette/Vaping Use: Never Used service: No Current occupational status: employed Cognitive needs: No Hearing needs: No Vision needs: Yes Physical Exam Vital Signs: Last Vital Signs Temp 99.4 F 05/04/24 10:49 Pulse 66 05/04/24 10:49 BP 110/70 05/04/24 10:49 Pulse Ox 99 05/04/24 10:49 BMI result Body Mass Index 30.0 Results Reviewed Results Reviewed: RUN: 05/04/24 1434 PAGE 1 [facility] [address] [place] [id number] Drywall Mechanic: Sherman Zhang M.D. Specimen Inquiry Name: Teresa Shepherd Age/Sex: 48/F : 1975 Unit#: [id number] Attend Dr: Nathaly Agee Re05/04/24 Status: REG REF Location: [facility] Disch: SPEC : [id number] WENDIE: 05/04/24 STATUS: COMP REQ : [id number] RECD: 05/04/[address] [facility] [address]: Nathaly Agee COMP: 05/04/24 ENTERED: 05/04/24 [facility] DR: ORDERED: SARS/FLU/RSV Test Result Flag Reference Influenza A PCR NEGATIVE Negative Influenza B PCR NEGATIVE Negative RSV RNA QualPCR NEGATIVE Negative SARSCOV2 RT-PCR NEGATIVE Negative All test results must be correlated with clinical findings. Negative results do not preclude SARS-CoV2, influenza A virus, influenza B virus and/or RSV infection and should not be used as the sole basis for treatment or other patient management decisions. Negative results must be combined with clinical observations, patient history, and epidemiological information. This test has not been evaluated for monitoring treatment of infection. This test has been authorized by the FDA under an Emergency Use Authorization (EUA) for use by authorized laboratories. Testing performed on the [employer] GeneXpert utilizing real-time RT-PCR. All SARS CoV2 and positive influenza A/B results are reported to [facility] END OF REPORT [facility] [address] [place], [place] [address] XRay Report Signed Patient: Teresa Shepherd MR#: [id number] : 1975 Acct:[id number] Age/Sex: 48 / F ADM Date: 05/04/24 [facility] Dr: Nathaly IRBY Ordering Physician: Nathaly Agee Date of Service: 05/04/24 Procedure(s): XR chest 2V Accession Number(s): [id number] cc: Helen Hines MD; Nathaly Agee [facility]-~ CLINICAL HISTORY: R05.9 - Cough, unspecified 2 view chest x-ray. Comparison: None Findings: The lungs are adequately expanded. No focal consolidation. No effusion or pneumothorax. Cardiac and mediastinal contours are within normal limits. No acute osseous abnormality Impression: No acute process. This document has been electronically signed by: Regis Lopez MD on 05/04/2024 11:35:59 Assessment & Plan Assessment & Plan (1) Cough: Code(s): R05.9 - Cough, unspecified Qualifiers: Cough type: acute Qualified Code(s): R05.1 - Acute cough (2) Flu-like symptoms: Code(s): R68.89 - Other general symptoms and signs (3) Multiple sclerosis: Comment: f/u with [facility] Code(s): G35 - Multiple sclerosis Plan . Orders: Orders SARS-CoV2/FLU/RSV Today R09.89 - Other specified symptoms and signs involving the circulatory and respiratory systems, R68.89 - Other general symptoms and signs XR chest 2V Today G35 - Multiple sclerosis, R05.9 - Cough, unspecified, R68.89 - Other general symptoms and signs Medications: New azithromycin For 250 mg dose pack: take 500 mg today (day 1), then 250 mg for 4 days (days 2-5) PO 6 tabs 0RF 5 days Coding Level of Care Code Est Pt Level 4 (07532) Diagnoses Acute cough R05.1 Cough type: acute Flu-like symptoms R68.89 Multiple sclerosis G35 Time Spent (min) 30
== END 2024-05-04 11:16 | disposition home or self-care (01) ==
PROVIDERS: PCP Internal Medicine; Visit Provider Nurse Practitioner Family
DX: R05.1 Acute cough (principal); R68.89 Other general symptoms and signs; G35 Multiple sclerosis

== ENCOUNTER 2024-05-04 11:02 | Outpatient (REF) | payer BC, SELFPAY ==
[2024-05-04 14:29] LABS: Influenza A PCR NEGATIVE (Negative); Influenza B PCR NEGATIVE (Negative); Resp Syncy Virus RNA Qual PCR NEGATIVE (Negative); SARS COV2 PCR INHOUSE NEGATIVE (Negative)
== END 2024-05-04 11:03 | disposition home or self-care (01) ==
LOC: HO.LNP 11:02
PROVIDERS: Visit Provider Nurse Practitioner Family
DX: R09.89 Other specified symptoms and signs involving the circulatory and respiratory systems (principal); R68.89 Other general symptoms and signs; R05.1 Acute cough
CPT/HCPCS: 0241U

== ENCOUNTER → 2024-05-04 11:09 | Outpatient (BNV) | payer BC, SELFPAY | PROVIDERS: PCP Internal Medicine; Visit Provider Radiology Vascular & Interventional Radiology | DX: R05.9 Cough, unspecified (principal) | CPT/HCPCS: 71046 ==

== ENCOUNTER 2024-07-05 13:31 | Outpatient (AMB) | payer BC, SELFPAY ==
--- NOTE | 2024-07-05 13:40 | MHC.PC.OV ---
Vital Signs 07/05/24 13:41 Height 5 ft 4 in Weight 168 lb BMI 28.8 BP 102/66 Blood Pressure Location Rt brachial Position Sitting Respiration 18 Pulse 86 Pulse Source Pulse Oximeter Temp 98.5 F Temp Source Oral Pulse Oximetry (%) 98 Oxygen Delivery Method Room Air Intake Visit Reasons: umbilical infection Intake Note: Pt is here today for a follow up visit. Pt states that she noticed soreness in her vaginal area. Pt also c/o pain on the R side of her chest that started last night. Allergies latex [LATEX] Allergy (Intermediate, Verified 07/05/24 13:57) HIVES morphine [MORPHINE] Allergy (Intermediate, Verified 07/05/24 13:57) HIVES acetaminophen [From PERCOCET] Allergy (Unknown, Verified 07/05/24 13:57) RASH Interferons [INTERFERONS] Allergy (Unknown, Verified 07/05/24 13:57) ANAPHYLAXIS oxycodone [From PERCOCET] Allergy (Unknown, Verified 07/05/24 13:57) RASH Medication List - Last Reconciled 07/05/24 by Helen Hines MD albuterol sulfate 90 mcg/actuation (ProAir HFA) 1 inh inhalation QID PRN cyanocobalamin (vitamin B-12) mcg IM estradiol 0.01%(0.1mg/gram) 1 g vaginal 2XW levothyroxine 175 mcg PO DAILY ofatumumab (Kesimpta Pen) mg subcut sertraline 100 mg PO DAILY syringe with needle (BD Luer-Krystal Syringe) Use to inject vitamin B 12 weekly valacyclovir 1,000 mg PO DIRECTED Wegovy (semaglutide (weight loss)) 1 mg (0.5 mL) subcut QWEEK NS Tobacco use date assessed: 07/05/24 Dental Screening Dental Screen Date: 07/05/24 Did you have a dental visit in the last 12 months?: Yes Did you have a dental problem in the last 6 months where you did not have access to dental care?: No Was dental information given to patient?: Patient has dentist HPI umbilical infection HPI Details Patient presents complaining of vaginal dryness and irritation during the intercourse but denies vaginal discharge bleeding dysuria increased urinary frequency abdominal pain fever chills nausea vomiting. PFSH Medical History Vitamin B12 deficiency Bunion of great toe Endometrial polyp Dysmenorrhea Spinal stenosis Precancerous lesion Annual physical exam Mammogram normal Normal Pap smear History of atypical skin mole Multiple sclerosis Eczema Psoriasis Papillary thyroid carcinoma Asthma Arthritis Surgical History Hx of hysterectomy H/O left knee surgery H/O spinal fusion H/O total thyroidectomy History of section Family History Father Hodgkins disease Heart disease Mother Degenerative disk disease Skin cancer Social History Housing: House Alcohol intake: current Alcohol intake frequency: holidays/special occasions only Patient Tobacco Use Status: Never used Tobacco e-Cigarette/Vaping Use: Never Used service: No Current occupational status: employed Cognitive needs: No Hearing needs: No Vision needs: Yes Questionnaire PHQ-9 Over the last 2 weeks, how often have you been bothered by any of the following problems? 1. Little interest or pleasure in doing things: not at all 2. Feeling down, depressed, or hopeless: not at all 3. Trouble falling or staying asleep, or sleeping too much: not at all 4. Feeling tired or having little energy: several days 5. Poor appetite or overeating: not at all 6. Feeling bad about yourself - or that you are a failure or have let yourself or your family down: not at all 7. Trouble concentrating on things, such as reading the newspaper or watching television: not at all 8. Moving or speaking so slowly that other people could have noticed. Or the opposite - being so fidgety or restless that you have been moving around a lot more than usual: not at all 9. Thoughts that you would be better off or of hurting yourself in some way: not at all Total score: 1 Depression Screening Interpretation: Negative Depression Screening Done: Yes 87462 - PHQ-9 Billing: Yes Source: Developed by Drs. Marlo Blevins, Mirtha Osborne, Erik Soto and colleagues, with an educational mor from [employer]. Thrive Questionnaire Date Thrive assessed: 07/05/24 I am a: Patient What is your living situation today?: I have a steady place to live Within the past 12 months, did the food you bought not last and you didn't have the money to get more?: Never true Within the past 12 months, did you worry whether your food would run out before you got money to buy more?: Never true Do you have trouble paying for medicines?: No Do you have trouble getting transportation to medical appointments?: No Do you have trouble paying your heating and electricity bill?: No Do you have trouble taking care of your child, family member or friend?: No Do you have trouble with day-to-day activities such as bathing, preparing meals, shopping, managing finances, etc.?: No Are you currently unemployed and looking for a job?: No Are you interested in more education?: No Please select the resources that you would like help with: None Currently or been in a relationship where the following occur: No concerns reported THRIVE Score: 0 AUDIT C Alcohol Use Questionnaire (AUDIT-C) 1. How often do you have a drink containing alcohol?: 2-4 times a month 2. How many drinks containing alcohol do you have on a typical day when you are drinking?: 1 or 2 3. How often do you have six or more drinks on one occasion?: Never Total Score: 2 JENNIFER-7 AMB Questionnaire JENNIFER-7 Date JENNIFER - 7 assessed: 07/05/24 Feeling nervous, anxious, or on edge: 1 = Several days Not being able to stop or control worryin = Not at all Worrying too much about different things: 1 = Several days Trouble relaxin = Not at all Being so restless that it is hard to sit still: 0 = Not at all Becoming easily annoyed or irritable: 0 = Not at all Feeling afraid as if something awful might happen: 0 = Not at all Total JENNIFER-7 score (0-4 normal; 5-9 mild; 10-14 moderate; 15-21 severe): 2 Source: Developed by Drs. Marlo Blevins, Mirtha Osborne, Erik Soto and colleagues, with an educational mor from [employer] JENNIFER-7 Assessment Billing JENNIFER-7 Assessment Tool: JENNIFER-7 Assessment 51712 Review of Systems Const All systems reviewed & are unremarkable except as noted in HPI and below Eyes Reports no additional complaints Card Reports no additional complaints Resp Reports no additional complaints GI Reports no additional complaints Physical exam (Primary Care) Vital Signs: Last Vital Signs Temp 98.5 F 07/05/24 13:41 Pulse 86 07/05/24 13:41 Resp 18 07/05/24 13:41 BP 102/66 07/05/24 13:41 Pulse Ox 98 07/05/24 13:41 Oxygen Delivery Method Room Air 07/05/24 13:41 BMI result Body Mass Index 28.8 Tobacco/Smoking Status: Tobacco use Status Tobacco use date assessed 07/05/24 07/05/24 13:54 Patient Tobacco Use Status Never used Tobacco 07/05/24 13:41 e-Cigarette/Vaping Use Never Used 07/05/24 13:41 PHQ-9: PHQ-9 Score PHQ-9: Total score 1 07/05/24 13:54 Depression Screening Interpretation: Negative Thrive Assessment: Date of Thrive Assessment Date Thrive assessed 07/05/24 07/05/24 13:54 Currently or been in a relationship where the following occur: No concerns reported Const General: no acute distress HENMT Head: Yes normal to inspection Eyes General: appearance normal, both eyes and all related structures Resp Effort & Inspection: normal respiratory effort Auscultation: clear to auscultation bilaterally Cardio Rhythm: regular rhythm Heart sounds: S1 normal heart sound present and S2 normal heart sound present GI Inspection: Yes normal to inspection Palpation (GI): Soft to palpation Percussion: Yes normal to percussion Auscultation: normal bowel sounds External Female Exam: normal external appearance Speculum Exam - Vagina: vagina atrophic Speculum Exam - Cervix: Cervix absent Coding Level of Care Code Est Pt Level 3 (99119) Diagnoses Papillary thyroid carcinoma C73 Vaginosis N76.0 Additional Codes JENNIFER-7 Assessment Billing - JENNIFER-7 Assessment Tool: JENNIFER-7 Assessment 18984 ([id number]) PHQ-9 - 10578 - PHQ-9 Billing: Yes ([id number]) Assessment & Plan Assessment & Plan (1) Papillary thyroid carcinoma: Comment: s/p thyroidectomy - 2.2 x 1.6 x 1.6cm right lobe , f/u , F/U [facility] Code(s): C73 - Malignant neoplasm of thyroid gland Category: Medical Plan: cont Levothyroxine (2) Vaginosis: Code(s): N76.0 - Acute vaginitis Category: Medical Plan: Check BV swab, start estradiol vaginal cream 1 g twice a week for atrophic vaginitis Orders: Orders TSH reflex Free T4 Today C73 - Malignant neoplasm of thyroid gland Thyroglobulin Tumor Marker Today C73 - Malignant neoplasm of thyroid gland Bacterial Vaginosis Panel Today N76.0 - Acute vaginitis Medications: New estradiol 0.01%(0.1mg/gram) 1 g vaginal 2XW 42.5 grams 3RF
[2024-07-05 13:41] VITALS: BP 102/66; PULSE 86; RESP 18; TEMP 36.9; O2SAT 98; BMI 28.8
--- OUTSIDE RECORDS SUMMARY | 2024-07-05 15:19 | XMS_ITS | Encounter Summary ---
Author Organization [facility] Address [address] [place] [address] Care Team Providers Care Records Supervisor Name Role Phone Helen Hines Primary Care Provider [phone] Encounter Details Date Type Department Care Team (Late st Contact Info) Description 09/23/2021 Telephone [facility] Central Scheduling Department [address] [place] [address] Telephone Intake, Staff Social History Tobacco Use Types Packs/Day Years Used Date Smoking Tobacco: Never Smokeless Tobacco: Never Comments:: Comments Unknown Sex and Gender Information Value Date Recorded Sex Assigned at Female 03/30/2023 1:51 PM EST Legal Sex Female 10:04 AM EDT Gender Identity Female 03/30/2023 1:51 PM EST Sexual Orientation Straight 03/30/2023 1: 51 PM EST documented as of this encounter Miscellaneous Notes * Telephone Encounter - Mary Ku - 09/23/2021 9:29 AM EDT DOCUMENTATION PURPOSE ONLY lvm AT [phone] TO SEE ABOUT PT authorization for MRI to go to [facility] to get it done there documented in this encounter Plan of Treatment Not on file documented as of this encounter Visit Diagnoses Not on filedocumented in this encounter Care Teams Records Supervisor Relationship Specialty Start Date End Date Helen Hines [address] [place] [address] PCP - General Internal Medicine 06/25/21 documented as of this encounter
--- OUTSIDE RECORDS SUMMARY | 2024-07-05 15:19 | XMS_ITS | Encounter Summary ---
Author Organization [facility] Address [address] [place] [address] Care Team Providers Care Machine Folder Name Role Phone Helen Hines Primary Care Provider [phone] Encounter Details Date Type Department Care Team (Late st Contact Info) Description 10/11/2021 Telephone [facility] [address] [place] [address] Telephone Intake, Staff Social History Tobacco Use [...] encounter Miscellaneous Notes * Telephone Encounter - Anne Mclean - 10/11/2021 9:02 AM EDT Called patient, approval on 09/24/21 for [facility] to return our call , did she have the scans done . Will wait for pt to return call , new auth needed, needs 3T machine * Telephone Encounter - Anne Mclean - 10/11/2021 9:02 AM EDT ----- Message from Cherry Delaney LPN sent at 10/07/2021 12:55 PM EDT ----- Sh needs her MRI done at [facility] documented in this encounter Plan of Treatment Not on file documented as of this encounter Visit Diagnoses Not on filedocumented in this encounter Care Teams Machine Folder Relationship Specialty Start Date End Date Helen Hines [address] [place] [address] PCP - General Internal Medicine 06/25/21 documented as of this encounter
--- OUTSIDE RECORDS SUMMARY | 2024-07-05 15:20 | XMS_ITS | Patient Health Record ---
[facility] Address [address] [facility] [place] [address] Care Team Providers Care Show Card Letterer Name Role Phone Helen Hines MD Primary Care Provider UnavailLove Barnes Unavailable [phone] Allergies Allergen (clinical drug ingredient) Drug/Non Drug Allergy documented on EMR Reaction Allergy Type Onset Date Status Adhesive taveras Allergy Active codeine Codeine rash Drug Allergy Active Reason For Referral No Information Medications Medication SIG (Take, Route, Frequency, Duration) Notes Start Date End Date Status Tecfidera 240 MG Oral for 30 A ctive Sertraline HCl 100 MG Oral for 60 Active Synthroid 175 MCG Oral for 60 Active Biotin viviscal Not-Taking Feldene 20 MG 1 capsule with food Orally Once a day for 14 days 03/03/2021 Not-Taking Immunizations Vaccine Route Administration Date Status Comme nts COVID-19 Edmundo & Edmundo/Madonna Unknown 02/19/2021 Administered First Dose: 11/21 Social History Tobacco Use: Social History Observation Description Date Details (start date - stop date) Never Smoker NA - NA Tobacco Use/Smoking Question Answer Notes Are you a: nonsmoker Alcohol Screen Question Answer Notes Did you have a drink contain ing alcohol in the past year? Yes How often did you have a dri nk containing alcohol in the past year? 2 to 4 times a month (2 points) How often did you have 6 or more drinks on one occasion in the past year? Monthly (2 points) Points 4 Interpretation Positive Tobacco use other than smoking: Question Answer Notes Are you an other tobacco user? No Problems Problem Type SNOMED Code ICD Code Onset Dates Problem Status W/U Status Risk Notes Problem [id number] Hallux valgus (acquired), left foot (M20.12) Active confirmed Problem [id number] Hallux valgus (acquired), right foot (M20.11) Active confirmed Plan Of Treatment Pending Test Test Name Order Date X ray : Foot, left 3V 03/03/2021 X ray : Foot, right 3V 03/03/2021 X ray : Foot, right 3V 06/29/2021 32871, J0702- INJECT TENDON ORIGIN/INSER T 06/29/2021 Insurance Providers Payer Name Payer Address Payer Phone Subscriber Number Group Number Insured Name Patient Relationship to Insured Coverage Start Date Coverage End Date [facility] [address] [place] [address] [id number] Teresa Shepherd Self - patient is the insured Medical (General) History Medical History History ICD Code asthma Back,Hip,and Knee pain thyroid cancer Multiple sclerosis Eczema Chicken pox Surgical History Surgery Date(Month/Year) back/neck fusion 2002 thyroidectomy 2005 section 2010
--- OUTSIDE RECORDS SUMMARY | 2024-07-05 15:20 | XMS_ITS | Encounter Summary ---
Author Organization [facility] Address [address] [place] [address] Care Team Providers Care Pan Shaker Name Role Phone Helen Hines Primary Care Provider [phone] Encounter Details Date Type Department Care Team (Late st Contact Info) Description 07/04/2024 [employer] Message [facility] [address] [place] [address] Stone Cutter: Geraldine Fall MD [address] [place] [address] Infection? Social History Tobacco Use Types Packs/Day Years Used Date Smoking Tobacco: Never Smokeless Tobacco: Never Comments:: Comments Unknown Sex and Gender Information Value Date Recorded Sex Assigned at Female 03/30/2023 1:51 PM EST Legal Sex Female 10:04 AM EDT Gender Identity Female 03/30/2023 1:51 PM EST Sexual Orientation Straight 03/30/2023 1: 51 PM EST documented as of this encounter Plan of Treatment Not on file documented as of this encounter Visit Diagnoses Not on filedocumented in this encounter Care Teams Pan Shaker Relationship Specialty Start Date End Date Helen Hines [address] [place] [address] PCP - General Internal Medicine 06/25/21 documented as of this encounter
--- OUTSIDE RECORDS SUMMARY | 2024-07-05 15:20 | XMS_ITS | Encounter Summary ---
Author Organization [facility] Address [address] [place] [address] Care Team Providers Care Motorboat Operator Name Role Phone Helen Hines Primary Care Provider [phone] Encounter Details Date Type Department Care Team (Late st Contact Info) Description 01/23/2020 Orders Only [facility] Interventional Radiology [address] [place] [address] [phone] Niurka Lee MD [address] [place], [place] [phone] Social History Tobacco Use Types Packs/Day Years [...] on filedocumented in this encounter Care Teams Motorboat Operator Relationship Specialty Start Date End Date Helen Hines [address] [place] [address] PCP - General Internal Medicine 06/25/21 documented as of this encounter
--- OUTSIDE RECORDS SUMMARY | 2024-07-05 15:20 | XMS_ITS | Referral Summary ---
Author Organization [facility] Address [address] [place] [id number] Care Team Providers Care Periodicals Clerk Name Role Phone Helen Hines Primary Care Provider [phone] Encounters Date Type Department Care Team Description 07/04/2024 [employer] Message [facility] [address] [place] [address] Supervisor Ornamental Ironworking: Geraldine Fall MD Infection? 06/10/2024 [facility] Clinical Specialty Pharmacy [facility] [address] [place] [address] Charles Velez, [facility] 05/03/2024 [employer] Message [facility] [address] [place] [address] Supervisor Ornamental Ironworking: Geraldine Fall MD Viral sickness 04/25/2024 Refill [facility] [address] [place] [address] Supervisor Ornamental Ironworking: Geraldine Fall MD from Last 3 Months Allergies Active Allergy Reactions Criticality Noted Date Comments Adhesive Tape-Silicones Dermatitis 01/27/2023 Interferon Beta-1b Unknown Glatiramer Unknown Latex Unknown Morphine Unknown 07/16/2018 Morphine In Dextrose 5 % Unknown Morphine Sulfate Unknown Oxycodone-Acetaminophen Unknown Interferon Beta-1a (Albumin) Angioedema High Medications levothyroxine (SYNTHROID, LEVOTHROID) 175 mcg tablet Take 175 mcg by mouth daily. On sundays takes 175 mcg plus additional 1/2 of 175 mcg Active cyanocobalamin (vitamin B-12) 1,000 mcg tablet Take 1 tablet (1,000 mcg total) by mouth once a day. 30 tablet 2 2 Active cholecalciferol (VITAMIN D3) 2,000 unit tablet Take 1 tablet (2,000 Units total) by mouth once a day. 30 tablet 11 3 Active ofatumumab 20 mg/0.4 mL pen injectorIndicat ions:Multiple sclerosis (HCC) Inject 0.4 mL (20 mg total) under the skin every 28 days. 1.2 mL 3 07/01/2024 10:47 AM EDT 4 Active ofatumumab (Kesimpta Pen) 20 mg/0.4 mL pen injector Inject 0.4 mL (20 mg total) under the skin every 7 days. For weeks 0,1, and 2, skip injection on week 3, then begin once monthly dosing on week 4. 1.2 mL 01/16/2024 10:21 AM EDT 4 Active EPINEPHrine (EPIPEN) 0.3 mg/0.3 mL injection syringe Inject 1 Syringe (0.3 mg total) into the outer thigh muscle as directed once for 1 dose. For possible anaphylactic reaction to COVID mRNA vaccine 0.3 mL 4 Active sertraline (ZOLOFT) 100 mg tablet TAKE 1 TABLET BY MOUTH ONCE A DAY 90 tablet 3 5 Active Active Problems Problem Noted Date Diagnosed Date Vitamin D deficiency 01/29/2018 Chronic fatigue 08/11/2014 Vitamin B12 deficiency 06/13/2014 Depression 06/09/2014 Neurogenic bladder 07/17/2013 Restless legs syndrome 07/17/2013 Multiple sclerosis 02/13/2012 Social History Tobacco Use Types Packs/Day Years Used Date Smoking Tobacco: Never Smokeless Tobacco: Never Tobacco Cessation:Counseling Given: Not Answered Comments:: Comments Unknown Sex and Gender Information Value Date Recorded Sex Assigned at Female 03/30/2023 1:51 PM EST Legal Sex Female 10:04 AM EDT Gender Identity Female 03/30/2023 1:51 PM EST Sexual Orientation Straight 03/30/2023 1: 51 PM EST Last Filed Vital Signs Vital Sign Reading Time Taken Comments Blood Pressure 114/59 01/19/2024 12:32 PM EDT Pulse 84 01/19/2024 12:32 PM EDT Temperature 36.5 ??C (97.7 ??F) 01/27/2023 11:07 AM E DT Respiratory Rate - - Oxygen Saturation 99% 06/13/2023 2:55 PM EDT Inhaled Oxygen Concentration - - Weight 74 kg (163 lb 3.2 oz) 07/16/2018 11:15 AM EDT Height 162.6 cm (5' 4 ) 09/12/2016 11:58 AM EDT Body Mass Index 28.01 09/12/2016 11:58 AM EDT Plan of Treatment Not on file Procedures * Due to [place] law, this organization might not be sharing negative HIV tests. Procedure Name Priority Date/Time Associated Diagnosis Comments HEPATITIS PANEL, ACUTE Routine 08/14/2023 9:50 AM EDT Multiple sclerosis Vitamin B12 deficiency Vitamin D deficiency Restless legs syndrome Chronic fatigue CD4 COUNTS Routine 02/13/2012 1:06 PM EST from Last 3 Months or Most Recently Relevant to Health Maintenance Results * Due to [place] law, this organization might not be sharing negative HIV tests. * Hepatitis Panel, Acute (08/14/2023 9:50 AM EDT) Hepatitis A IgM NON-REACT CHARLES NON-REACT CHARLES 08/14/2023 6:58 PM EDT [facility] Hepatitis B Surface Antigen NON-REACT CHARLES NON-REACT CHARLES 08/14/2023 6:58 PM EDT [facility] Hepatitis B Core Antibody NON-REACT CHARLES NON-REACT CHARLES 08/14/2023 6:58 PM EDT [facility] Hepatitis C Antibody NON-REACT CHARLES NON-REACT CHARLES 08/14/2023 6:58 PM EDT [facility] Comment: HCV antibody was non-reactive. There is no laboratory evidence of HCV infection. In most cases, no further action is required. However, if recent HCV exposure is suspected, a test for HCV RNA (test code 93150) is suggested. For additional information please refer to http://education.[employer]/faq/TYV78p0 (This link is being provided for informational/ educational purposes only.) For additional information, please refer to http://education.[employer]/faq/XII418 (This link is being provided for informational/ educational purposes only.) Blood Structure of peripheral vein / Unknown Venipuncture / Unknown 08/14/2023 9:50 AM EDT 08/14/2023 10:09 AM EDT Narrative [facility] - 08/14/2023 6:58 PM EDT [facility] Received Date: Geraldine Powell MD LAB BLOOD ORDERABLES Final Re sult [facility] [address] [facility] [address], [place] [address], [place] [phone] [facility] [address] [facility] [address], [place] [address], [place] [phone] from Last 3 Months or Most Recently Relevant to Health Maintenance Insurance [facility] HMO/POS Care Teams Periodicals Clerk Relationship Specialty Start Date End Date Helen Hines [address] [place] [address] PCP - General Internal Medicine 06/25/21
--- OUTSIDE RECORDS SUMMARY | 2024-07-05 15:20 | XMS_ITS | Encounter Summary ---
Author Organization [facility] Address [address] [place] [address] Care Team Providers Care Pi/Senior Research Associate Name Role Phone Helen Hines Primary Care Provider [phone] Encounter Details Date Type Department Care Team (Late st Contact Info) Description 12/29/2021 myChart Message [facility] [address] [place] [address] [phone] Saul Lemon MD [address] [place] [address] [phone] Vitamin B12 level Social History Tobacco Use Types Packs/Day Years [...] on filedocumented in this encounter Care Teams Pi/Senior Research Associate Relationship Specialty Start Date End Date Helen Hines [address] [facility] [place] [address] PCP - General Internal Medicine 06/25/21 documented as of this encounter
--- OUTSIDE RECORDS SUMMARY | 2024-07-05 15:20 | XMS_ITS | Clinical Summary ---
Author Organization [facility] Address [address] [id number] Care Team Providers Care Molasses And Caramel Operator Name Role Phone Helen Hines Primary Care Provider [phone] Allergies Active Allergy Reactions Criticality Noted Date [...] Restless legs syndrome 07/17/2013 Multiple sclerosis 02/13/2012 Encounters Date Type Department Care Team Description 07/04/2024 myChart Message [facility] [address] [place] [address] Completion Engineer: Geraldine Fall MD Infection? 06/10/2024 [facility] Clinical Specialty Pharmacy [facility] Pharmacotherapy Clinic [address] [place] [address] Charles Velez, [facility] 05/03/2024 myChart Message [facility] [address] [place] [address] 15077 Completion Engineer: Geraldine Fall MD Viral sickness 04/25/2024 Refill [facility] [address] [place] [address] 9[address] Completion Engineer: Geraldine Fall MD from Last 3 Months Social History Tobacco Use Types Packs/Day Years [...] 09/12/2016 11:58 AM EDT Plan of Treatment Health Maintenance Due Date Last Done Comments Cervical Cancer Screening 1974 Cologuard 1974 Colon Cancer Screening 1974 Colonoscopy 1974 FOBT / Fit Test 1974 HPV and Pap Smear 1974 Pap Smear 1974 Sigmoidoscopy 1974 Hepatitis B Vaccines (1 of 3 - 19+ 3-dose series) 1993 Pneumococcal Vaccine: Pediat clarita (0-5 Years) and At-Risk Patients (6-50 Years) (1 of 2 - PCV) 1993 DTaP,Tdap,and Td Vaccines (1 - Tdap) 1996 Mammogram 2014 COVID-19 Vaccine (5 - 2023-2 5 season) 2023 07/08/2023, 02/18/2021, 07/31/2020, Additional history exists Alcohol/Substance Use Screening 04/03/2024 Depression Screening and Follow-Up 04/03/2024 Social Drivers of Health Susana ual Screening 04/03/2024 Influenza Vaccine (Season Ended) 2024 01/22/20 20 RSV Vaccine (60+ years old a nd patients) (1 - 1-dose 75+ series) 2049 HIV Screening Completed 08/14/2023, 12/02, 02/13/2012 Hepatitis C Screening Completed 08/14/2023 , 12/13/2022, 02/13/2012 Procedures * Due to [place] state law, this organization might not be sharing negative HIV tests. Procedure Name Priority Date/Time Associated Diagnosis Comments HEPATITIS PANEL, ACUTE Routine 08/14/2023 9:50 AM EDT Multiple sclerosis Vitamin B12 deficiency Vitamin D deficiency Restless legs syndrome Chronic fatigue CD4 COUNTS Routine 02/13/2012 1:06 PM EST from Last 3 Months or Most Recently Relevant to Health Maintenance Results * Due to [place] state law, this organization might not be sharing negative HIV tests. * Hepatitis Panel, Acute (08/14/2023 9:50 AM EDT) Hepatitis A IgM NON-REACT CHARLES NON-REACT CHARLES 08/14/2023 6:58 PM EDT [facility] Hepatitis B Surface Antigen NON-REACT CHARLES NON-REACT CHARLES 08/14/2023 6:58 PM EDT [facility] Hepatitis B Core Antibody NON-REACT CHARLES NON-REACT CHARLES 08/14/2023 6:58 PM EDT [facility] Hepatitis C Antibody NON-REACT CHARLES NON-REACT CHARLES 08/14/2023 6:58 PM EDT [facility] Comment: HCV antibody was non-reactive. There is no laboratory evidence of HCV infection. In most cases, no further action is required. However, if recent HCV exposure is suspected, a test for HCV RNA (test code 95405) is suggested. For additional information please refer to http://Soapbox.Reverse Medical/faq/HBV48j2 (This link is being provided for informational/ educational purposes only.) For additional information, please refer to http://Soapbox.Reverse Medical/faq/GQV325 (This link is being provided for informational/ educational purposes only.) Blood Structure of peripheral vein / Unknown Venipuncture / Unknown 08/14/2023 9:50 AM EDT 08/14/2023 10:09 AM EDT Narrative JOHNNY LAROSN - 08/14/2023 6:58 PM EDT [facility] Received Date: Geraldine Powell MD LAB BLOOD ORDERABLES Final Re sult JOHNNY LARSON [address] [facility] 3rd Floor, [place] [address], [place] [phone] [facility] [address], [address] [place] [address], [place] [phone] from Last 3 Months or Most Recently Relevant to Health Maintenance Insurance [facility] HMO/POS Care Teams Molasses And Caramel Operator Relationship Specialty Start Date End Date Helen Hines [address] [place] [address] PCP - General Internal Medicine 06/25/21
--- OUTSIDE RECORDS SUMMARY | 2024-07-05 15:20 | XMS_ITS | Patient Health Record ---
Author Organization [employer] [facility] Address [address] [place] [address] Care Team Providers Care Quality Analyst Name Role Phone Angela Marina Unavailable [phone] Reason For Referral No Information Medications Medication SIG (Take, Route, Fr equency, Duration) Notes Start Date End Date Status Synthroid 175 MCG 1 ORAL daily for -3 [facility] 04/12/2013 Active Zoloft 100MG 0.5TAB ORAL daily for -3 [facility] 04/12/2013 Active Tecfidera 240MG 1 ORAL twice daily for -3 [facility] 04/12/19 14 Active Problems Problem Type SNOMED Code ICD Code Onset Dates Problem Status W/U Status Risk Notes Problem Female genital organ symptoms (878071735) Other specified symptom associated with female genital organs (625.8) Active confirmed Major Problem Irregular menstrual cycle (49427632) Irregular menstrual cycle (626.4) Active confirmed Diag Problem Contraception care education (715261229) Other general counseling and advice for contraceptive management (V25.09) Active confirmed Diag Plan Of Treatment No Information Insurance Providers Payer Name Payer Address Payer Phone Subscriber Number Group Number Insured Name Patient Relationship to Insured Coverage Start Date Coverage End Date [facility] [address] [place] [address] [id number] JONA GAONA Self - patient is the insured
== END 2024-07-05 15:02 | disposition home or self-care (01) ==
LOC: HO.HMCC 13:32
PROVIDERS: PCP Internal Medicine; Visit Provider Internal Medicine
DX: C73 Malignant neoplasm of thyroid gland (principal); N76.0 Acute vaginitis

== ENCOUNTER 2024-07-05 13:31 | Outpatient (REF) | payer BC, SELFPAY ==
--- OUTSIDE RECORDS SUMMARY | 2024-07-05 16:16 | XMS_ITS | Encounter Summary ---
Author Organization [facility] Address [address] [place] [address] Care Team Providers Care Traveling Electrician Name Role Phone Helen Hines Primary Care Provider [phone] Encounter Details Date Type Department Care Team (Late st Contact Info) Description 07/04/2024 MIOTtechhart Message [facility] [address] [place] [address] Hand Hide Stretcher: Geraldine Fall MD [address] [place] [address] Infection? Social History Tobacco Use Types [...] on filedocumented in this encounter Care Teams Traveling Electrician Relationship Specialty Start Date End Date Helen Hines [address] [place] [address] PCP - General Internal Medicine 06/25/21 documented as of this encounter
--- OUTSIDE RECORDS SUMMARY | 2024-07-05 16:16 | XMS_ITS | Encounter Summary ---
Author Organization [facility] Address [address] [place] [address] Care Team Providers Care Patient Appointment Coordinator Name Role Phone Helen Hines Primary Care Provider [phone] Encounter Details Date Type Department Care Team (Late st Contact Info) Description 09/23/2021 Telephone [facility] Central Scheduling Department [address] [place] [address] Telephone Intake, Staff Social History Tobacco Use [...] AM EDT DOCUMENTATION PURPOSE ONLY lvm AT [phone] TO SEE ABOUT PT authorization for MRI to go to [facility] to get it done there documented in this encounter Plan of Treatment Not on file documented as of this encounter Visit Diagnoses Not on filedocumented in this encounter Care Teams Patient Appointment Coordinator Relationship Specialty Start Date End Date Helen Hines [address] [place] [address] PCP - General Internal Medicine 06/25/21 documented as of this encounter
--- OUTSIDE RECORDS SUMMARY | 2024-07-05 16:16 | XMS_ITS | Encounter Summary ---
Author Organization [facility] Address [address] [place] [address] Care Team Providers Care Tea Taster Name Role Phone Helen Hines Primary Care Provider [phone] Encounter Details Date Type Department Care Team (Late st Contact Info) Description 10/11/2021 Telephone [facility] [address] [place] [address] Telephone Intake, Staff Social History Tobacco [...] EDT Called patient, approval on 09/24/21 for [facility] to return our call , did she have the scans done . Will wait for pt to return call , new auth needed, needs 3T machine * Telephone Encounter - Anne Mclean - 10/11/2021 9:02 AM EDT ----- Message from Cherry Delaney LPN sent at 10/07/2021 12:55 PM EDT ----- Sh needs her MRI done at [facility] documented in this encounter Plan of Treatment Not on file documented as of this encounter Visit Diagnoses Not on filedocumented in this encounter Care Teams Tea Taster Relationship Specialty Start Date End Date Helen Hines [address] [place] [address] PCP - General Internal Medicine 06/25/21 documented as of this encounter
--- OUTSIDE RECORDS SUMMARY | 2024-07-05 16:16 | XMS_ITS | Encounter Summary ---
Author Organization [facility] Address [address] [place] [address] Care Team Providers Care Ticket Puller Name Role Phone Helen Hines Primary Care Provider Encounter Details Date Type Department Care Team (Late st Contact Info) Description 12/29/2021 myChart Message [facility] Neurology Clinic [address] [place] [address] [phone] Saul Lemon MD [address] [place] [address] [phone] Vitamin B12 level Social History Tobacco Use [...] on filedocumented in this encounter Care Teams Ticket Puller Relationship Specialty Start Date End Date Helen Hines [address] [facility] [place] [address] PCP - General Internal Medicine 06/25/21 documented as of this encounter
--- OUTSIDE RECORDS SUMMARY | 2024-07-05 16:16 | XMS_ITS | Encounter Summary ---
Author Organization [facility] Address [address] [place] [address] Care Team Providers Care Employment Law Attorney Name Role Phone Helen Hines Primary Care Provider [phone] Encounter Details Date Type Department Care Team (Late st Contact Info) Description 01/23/2020 Orders Only [facility] Interventional Radiology [address] [place] [address] [phone] Niurka Lee MD [address] [place], [place] [phone] Social History Tobacco Use Types Packs/Day Years [...] on filedocumented in this encounter Care Teams Employment Law Attorney Relationship Specialty Start Date End Date Helen Hines [address] [place] [address] PCP - General Internal Medicine 06/25/21 documented as of this encounter
--- OUTSIDE RECORDS SUMMARY | 2024-07-05 16:16 | XMS_ITS | Clinical Summary ---
Author Organization [facility] Address [address] [phone] Care Team Providers Care Cushion Worker Name Role Phone Helen Hines Primary Care Provider [phone] Allergies Active Allergy Reactions Criticality Noted Date [...] Department Care Team Description 07/04/2024 myChart Message [facility] S[facility] [address] [place] [address] Block Feeder: Geraldine Fall MD Infection? 06/10/2024 [facility] Clinical Specialty Pharmacy [facility] Pharmacotherapy Clinic [address] [place] [address] Charles Velez, [facility] 05/03/2024 myChart Message [facility] [address] [place] [address] Block Feeder: Geraldine Fall MD Viral sickness 04/25/2024 Refill [facility] [address] [place] [address] Block Feeder: Geraldine Fall MD from Last 3 Months [...] , 12/13/2022, 02/13/2012 Procedures * Due to [place] state law, this organization might not be sharing negative HIV tests. Procedure Name Priority Date/Time Associated Diagnosis Comments HEPATITIS PANEL, ACUTE Routine 08/14/2023 9:50 AM EDT Multiple sclerosis Vitamin B12 deficiency Vitamin D deficiency Restless legs syndrome Chronic fatigue CD4 COUNTS Routine 02/13/2012 1:06 PM EST from Last 3 Months or Most Recently Relevant to Health Maintenance Results * Due to [place] state law, this organization might not be sharing negative HIV tests. * Hepatitis Panel, Acute (08/14/2023 9:50 AM EDT) Hepatitis A IgM NON-REACT CHARLES NON-REACT CHARLES 08/14/2023 6:58 PM EDT [facility] Hepatitis B Surface Antigen NON-REACT CHARLES NON-REACT CHARLES 08/14/2023 6:58 PM EDT [facility] Hepatitis B Core Antibody NON-REACT CHARLES NON-REACT CHARLES 08/14/2023 6:58 PM EDT [facility] Hepatitis C Antibody NON-REACT CHARLES NON-REACT CHARLES 08/14/2023 6:58 PM EDT [facility] Comment: HCV antibody was non-reactive. There is no laboratory evidence of HCV infection. In most cases, no further action is required. However, if recent HCV exposure is suspected, a test for HCV RNA (test code 86475) is suggested. For additional information please refer to http://MuteButton.MedDay/faq/EXE51s2 (This link is being provided for informational/ educational purposes only.) For additional information, please refer to http://MuteButton.MedDay/faq/NLS855 (This link is being provided for informational/ educational purposes only.) Blood Structure of peripheral vein / Unknown Venipuncture / Unknown 08/14/2023 9:50 AM EDT 08/14/2023 10:09 AM EDT Narrative JOHNNY LARSON - 08/14/2023 6:58 PM EDT [facility] Received Date: Geraldine Powell MD LAB BLOOD ORDERABLES Final Re sult JOHNNY LARSON [address] [facility] 3rd Floor, [place] [address], [place] [phone] [facility] [address], [address] [place] [address], [place] [phone] from Last 3 Months or Most Recently Relevant to Health Maintenance Insurance [facility] HMO/POS Care Teams Cushion Worker Relationship Specialty Start Date End Date Helen Hines [address] [place] [address] PCP - General Internal Medicine 06/25/21
--- OUTSIDE RECORDS SUMMARY | 2024-07-05 16:16 | XMS_ITS | Referral Summary ---
Author Organization [facility] Address [address] [phone] Care Team Providers Care Civil Engineering Manager Name Role Phone Helen Hines Primary Care Provider [phone] Encounters Date Type Department Care Team Description 07/04/2024 Publicfastt Message [facility] Sclerosis [facility] [address] [place] [address] Cinder Block Maker: Geraldine Fall MD Infection? 06/10/2024 [facility] Clinical Specialty Pharmacy [facility] Pharmacotherapy Clinic [address] [place] [address] Charles Velez, [facility] 05/03/2024 [employer] Message [facility] Multiple Sclerosis [facility] [address] [place] [address] Cinder Block Maker: Geraldine Fall MD Viral sickness 04/25/2024 Refill [facility] [address] [place] [address] Cinder Block Maker: Geraldine Fall MD from Last 3 Months [...] Not on file Procedures * Due to [place] [employer] law, this organization might not be sharing negative HIV tests. Procedure Name Priority Date/Time Associated Diagnosis Comments HEPATITIS PANEL, ACUTE Routine 08/14/2023 9:50 AM EDT Multiple sclerosis Vitamin B12 deficiency Vitamin D deficiency Restless legs syndrome Chronic fatigue CD4 COUNTS Routine 02/13/2012 1:06 PM EST from Last 3 Months or Most Recently Relevant to Health Maintenance Results * Due to [place] [employer] law, this organization might not be sharing negative HIV tests. * Hepatitis Panel, Acute (08/14/2023 9:50 AM EDT) Hepatitis A IgM NON-REACT CHARLES NON-REACT CHARLES 08/14/2023 6:58 PM EDT [facility] Hepatitis B Surface Antigen NON-REACT CHARLES NON-REACT CHARLES 08/14/2023 6:58 PM EDT Team [employer] [facility] Hepatitis B Core Antibody NON-REACT CHARLES NON-REACT CHARLES 08/14/2023 6:58 PM EDT Team [employer] [facility] Hepatitis C Antibody NON-REACT CHARLES NON-REACT CHARLES 08/14/2023 6:58 PM EDT Team [employer] [facility] Comment: HCV antibody was non-reactive. There is no laboratory evidence of HCV infection. In most cases, no further action is required. However, if recent HCV exposure is suspected, a test for HCV RNA (test code 52365) is suggested. For additional information please refer to http://education.DriveHQ/faq/LWI16m5 (This link is being provided for informational/ educational purposes only.) For additional information, please refer to http://education.DriveHQ/faq/KQR272 (This link is being provided for informational/ educational purposes only.) Blood Structure of peripheral vein / Unknown Venipuncture / Unknown 08/14/2023 9:50 AM EDT 08/14/2023 10:09 AM EDT Narrative [facility] - 08/14/2023 6:58 PM EDT [facility] Received Date: Geraldine Powell MD LAB BLOOD ORDERABLES Final Re sult [facility] [address] [facility] 3rd Floor, [place] [address], [place] [phone] [facility] [employer] [facility] [address] [facility] 3rd Floor, [place] [address], [place] [phone] from Last 3 Months or Most Recently Relevant to Health Maintenance Insurance [facility] HMO/POS Care Teams Civil Engineering Manager Relationship Specialty Start Date End Date Helen Hines [address] [place] [address] PCP - General Internal Medicine 06/25/21
[2024-07-05 16:53] LABS: TSH reflex Free T4 0.01 uIU/mL (0.32-4.0)
[2024-07-09 03:59] LABS: Thyroglobulin Antibody <1 IU/mL (<=1); Thyroglobulin Level <0.1 ng/mL
== END 2024-07-05 13:32 | disposition home or self-care (01) ==
LOC: HO.HMGCLDS 13:31
PROVIDERS: PCP Internal Medicine; Visit Provider Internal Medicine
DX: C73 Malignant neoplasm of thyroid gland (principal); E89.0 Postprocedural hypothyroidism; N76.0 Acute vaginitis; Z79.899 Other long term (current) drug therapy
CPT/HCPCS: 36415; 84432; 84439; 84443; 86800; 96127

== ENCOUNTER 2024-07-05 14:48 | Outpatient (REF) | payer BC, SELFPAY ==
[2024-07-06 12:25] LABS: Bacterial Vaginosis PCR NEGATIVE (Negative); Candida Group PCR NOT DETECTED (Not Detect); Candida glab krusei PCR NOT DETECTED (Not Detect); Trichomonas vaginalis PCR NOT DETECTED (Not Detect)
== END 2024-07-05 14:49 | disposition home or self-care (01) ==
LOC: HO.LAB 14:48
PROVIDERS: Visit Provider Internal Medicine
DX: N76.0 Acute vaginitis (principal)
CPT/HCPCS: 81515

== ENCOUNTER 2024-08-31 08:16 | Outpatient (REF) | payer BC, SELFPAY ==
--- OUTSIDE RECORDS SUMMARY | 2024-08-31 08:19 | XMS_ITS | Encounter Summary ---
Author Organization [facility] Address [address] [place] [address] Care Team Providers Care Valve Machine Operator Name Role Phone Helen Hines Primary Care Provider [phone] Encounter Details Date Type Department Care Team (Late st Contact Info) Description 2024 myChart Message [facility] [address] [place] [address] Juan R Turner MD [address] [facility] Interventional [place] [address] Back pain Social History Tobacco Use Types Packs/Day Years Used Date Smoking Tobacco: Never Smokeless Tobacco: Never Comments:: Comments Unknown Sex and Gender Information Value Date Recorded Sex Assigned at Female 03/30/2023 1:51 PM EST Legal Sex Female 10:04 AM EDT Gender Identity Female 03/30/2023 1:51 PM EST Sexual Orientation Straight 03/30/2023 1: 51 PM EST documented as of this encounter Plan of Treatment Upcoming Encounters Date Type Department Care Team (Late st Contact Info) Description 02/25/2025 3:00 PM EST Office Visit [facility] Multiple Sclerosis [facility] [address] [place] [address] Electronic Prepress Operator: Donna Monte documented as of this encounter Visit Diagnoses Not on filedocumented in this encounter Care Teams Valve Machine Operator Relationship Specialty Start Date End Date Helen Hines [address] [facility] [place] [address] PCP - General Internal Medicine 06/25/21 documented as of this encounter
[2024-08-31 11:55] LABS: Hematocrit 41.4 % (37.0-47.0); Hemoglobin 14.1 g/dl (12.0-16.0); Mean Corpuscular HGB Conc 34.1 g/dl (31.0-35.0); Mean Corpuscular Hemoglobin 32.1 pg (27.0-33.0); Mean Corpuscular Volume 94.3 fL (80.0-98.0); Mean Platelet Volume 10.2 fL (9.4-12.3); Platelet Count 414 X10*3/uL (160-400); Red Blood Count 4.39 X10*6/uL (4.20-5.50); Red Cell Distribution Width 12.1 % (11.0-16.0)
[2024-08-31 12:20] LABS: Alanine Aminotransferase 17 U/L (0-31); Albumin Level 4.2 g/dL (3.5-5.0); Alkaline Phosphatase 77 U/L (39-117); Anion Gap 11 (12-20); Aspartate Amino Transferase 21 U/L (5-31); Bilirubin Total 0.3 mg/dL (0.0-1.0); Blood Urea Nitrogen 13 mg/dL (9-16); Calcium 9.3 mg/dL (8.4-10.2); Carbon Dioxide 28 mmol/L (22-29); Chloride 107 mmol/L (96-108); Cholesterol 181 mg/dL (<200); Estimated Glomerular Filt Rate > 60; Glucose Fasting 86 mg/dL (60-99); HDL Cholesterol 60 mg/dL (>40); LDL Cholesterol Calculated 108 mg/dL (<100); Potassium 4.7 mmol/L (3.3-5.1); Sodium 141 mmol/L (135-145); Total Protein 6.9 g/dL (6.5-8.0); Triglycerides 65 mg/dL (<150)
[2024-08-31 12:38] LABS: TSH reflex Free T4 0.01 uIU/mL (0.32-4.0); Vitamin D 25-OH Total 43.5 ng/mL (>30)
[2024-08-31 12:45] LABS: Folate 11.3 ng/mL (> or = 4.0); Vitamin B12 284 pg/mL (200-900)
[2024-08-31 13:24] LABS: Free T4 (Free Thyroxine) 1.31 ng/dL (0.71-1.85)
== END 2024-08-31 08:17 | disposition home or self-care (01) ==
LOC: HO.HMGCLDS 08:16
PROVIDERS: Nurse Practitioner Family; PCP Internal Medicine; Visit Provider Internal Medicine
DX: Z00.00 Encounter for general adult medical examination without abnormal findings (principal); Z13.6 Encounter for screening for cardiovascular disorders
CPT/HCPCS: 36415; 80053; 80061; 82306; 82607; 82746; 84439; 84443; 85027

== ENCOUNTER 2024-09-03 11:55 | Outpatient (AMB) | payer BC, SELFPAY ==
[2024-09-03 12:39] VITALS: BP 100/66; PULSE 85; RESP 18; TEMP 36.9; O2SAT 97; BMI 27.6
--- NOTE | 2024-09-03 12:39 | MHC.PC.OV ---
Vital Signs 09/03/24 12:39 Height 5 ft 4 in Weight 161 lb BMI 27.6 BP 100/66 Blood Pressure Location Rt brachial Position Sitting Respiration 18 Pulse 85 Pulse Source Pulse Oximeter Temp 98.5 F Temp Source Oral Pulse Oximetry (%) 97 Oxygen Delivery Method Room Air Intake Visit Reasons: Annual PE Intake Note: Pt is here today for PE. Allergies latex [LATEX] Allergy (Intermediate, Verified 09/03/24 12:43) HIVES morphine [MORPHINE] Allergy (Intermediate, Verified 09/03/24 12:43) HIVES acetaminophen [From PERCOCET] Allergy (Unknown, Verified 09/03/24 12:43) RASH Interferons [INTERFERONS] Allergy (Unknown, Verified 09/03/24 12:43) ANAPHYLAXIS oxycodone [From PERCOCET] Allergy (Unknown, Verified 09/03/24 12:43) RASH Medication List - Last Reconciled 09/03/24 by Helen Hines MD albuterol sulfate 90 mcg/actuation (ProAir HFA) 1 inh inhalation QID PRN baclofen 10 mg PO BID estradiol 0.01%(0.1mg/gram) 1 g vaginal 2XW levothyroxine 175 mcg PO DAILY magnesium PO mecobalamin (vitamin B12) PO ofatumumab (Kesimpta Pen) mg subcut sertraline 100 mg PO DAILY syringe with needle (BD Luer-Krystal Syringe) Use to inject vitamin B 12 weekly valacyclovir 1,000 mg PO DIRECTED Wegovy (semaglutide (weight loss)) 1 mg (0.5 mL) subcut QWEEK NS Tobacco use date assessed: 09/03/24 Dental Screening Dental Screen Date: 07/05/24 HPI Annual PE HPI Details Pt presents for PE. She is established with [facility] for MS and lumbar spine stenosis. Patient reports chronic lower back pain getting worse over the last few months. Patient's solution specialist moved out of the area and she will schedule an appointment with the replacement. Patient has a MRI ordered by neurologist to evaluate for her brain and whole spine [facility] Medical History (Updated 09/03/24 @ 16:27 by Helen Hines MD) Colonoscopy refused Vitamin B12 deficiency Bunion of great toe Endometrial polyp Dysmenorrhea Spinal stenosis Precancerous lesion Annual physical exam Mammogram normal Normal Pap smear History of atypical skin mole Multiple sclerosis Eczema Psoriasis Papillary thyroid carcinoma Asthma Arthritis Surgical History Hx of hysterectomy H/O left knee surgery H/O spinal fusion H/O total thyroidectomy History of section Family History Father Hodgkins disease Heart disease Mother Degenerative disk disease Skin cancer Social History Housing: House Alcohol intake: current Alcohol intake frequency: holidays/special occasions only Patient Tobacco Use Status: Never used Tobacco e-Cigarette/Vaping Use: Never Used service: No Current occupational status: employed Cognitive needs: No Hearing needs: No Vision needs: Yes Questionnaire Thrive Questionnaire Date Thrive assessed: 07/05/24 I am a: Patient What is your living situation today?: I have a steady place to live Within the past 12 months, did the food you bought not last and you didn't have the money to get more?: Never true Within the past 12 months, did you worry whether your food would run out before you got money to buy more?: Never true Do you have trouble paying for medicines?: No Do you have trouble getting transportation to medical appointments?: No Do you have trouble paying your heating and electricity bill?: No Do you have trouble taking care of your child, family member or friend?: No Do you have trouble with day-to-day activities such as bathing, preparing meals, shopping, managing finances, etc.?: No Are you currently unemployed and looking for a job?: No Are you interested in more education?: No Please select the resources that you would like help with: None Currently or been in a relationship where the following occur: No concerns reported THRIVE Score: 0 JENNIFER-7 AMB Questionnaire JENNIFER-7 Date JENNIFER - 7 assessed: 07/05/24 Source: Developed by Drs. Marlo Blevins, Mirtha Osborne, Erik Soto and colleagues, with an educational mor from [employer] Review of Systems Const All systems reviewed & are unremarkable except as noted in HPI and below Eyes Reports no additional complaints ENT Reports no additional complaints Card Reports no additional complaints Resp Reports no additional complaints GI Reports no additional complaints Reports no additional complaints Physical exam (Primary Care) Vital Signs: Last Vital Signs Temp 98.5 F 09/03/24 12:39 Pulse 85 09/03/24 12:39 Resp 18 09/03/24 12:39 BP 100/66 09/03/24 12:39 Pulse Ox 97 09/03/24 12:39 Oxygen Delivery Method Room Air 09/03/24 12:39 BMI result Body Mass Index 27.6 Tobacco/Smoking Status: Tobacco use Status Tobacco use date assessed 09/03/24 09/03/24 12:47 Patient Tobacco Use Status Never used Tobacco 09/03/24 12:40 e-Cigarette/Vaping Use Never Used 09/03/24 12:40 Thrive Assessment: Date of Thrive Assessment Date Thrive assessed 07/05/24 09/03/24 12:40 Currently or been in a relationship where the following occur: No concerns reported Const General: no acute distress HENMT Head: Yes normal to inspection Ears: hearing grossly normal bilaterally General nose exam: Normal external nose present Face and sinus: Yes normal facial exam Mouth: Normal oral and palatal mucosa present Throat: Yes posterior oropharynx normal Eyes General: appearance normal, both eyes and all related structures Neck Neck: Yes no lymphadenopathy and Yes supple Resp Effort & Inspection: normal respiratory effort Auscultation: clear to auscultation bilaterally Cardio Rhythm: regular rhythm Heart sounds: S1 normal heart sound present and S2 normal heart sound present GI Inspection: Yes normal to inspection Palpation (GI): Soft to palpation Percussion: Yes normal to percussion Auscultation: normal bowel sounds Coding Level of Care Code Est Pt Prev Care 40-64y(28170) Diagnoses Multiple sclerosis G35 Papillary thyroid carcinoma C73 Vitamin B12 deficiency E53.8 Spinal stenosis M48.00 Annual physical exam Z00.00 Colonoscopy refused Z53.20 Assessment & Plan Assessment & Plan (1) Multiple sclerosis: Comment: f/u with [facility] Code(s): G35 - Multiple sclerosis Category: Medical Plan: Follow-up with the [facility] (2) Papillary thyroid carcinoma: Comment: s/p thyroidectomy - 2.2 x 1.6 x 1.6cm right lobe , f/u , F/U [facility] Code(s): C73 - Malignant neoplasm of thyroid gland Category: Medical Plan: Follow-up with endocrinology (3) Vitamin B12 deficiency: Comment: On oral B12 supplement Code(s): E53.8 - Deficiency of other specified B group vitamins Category: Medical Plan: Continue B12 supplement (4) Spinal stenosis: Comment: cervical and lumbar f/u , s/p 2 fusions Code(s): M48.00 - Spinal stenosis, site unspecified Category: Medical Plan: Patient will get established with a new solution specialist at [facility], patient will try low dose of gabapentin, she has gabapentin at home. She will try the half a dose qhs and slowly increase (5) Annual physical exam: Comment: Status post hysterectomy 2021 Code(s): Z00.00 - Encounter for general adult medical examination without abnormal findings Category: Medical Plan: Well-balanced diet regular physical activity discussed with the patient she will schedule mammogram. (6) Colonoscopy refused: Comment: 09/2024, Cologuard ordered Code(s): Z53.20 - Procedure and treatment not carried out because of patient's decision for unspecified reasons Category: Medical Plan: Check Cologuard Medications: Refilled baclofen 10 mg PO BID 30 tabs 0RF
--- OUTSIDE RECORDS SUMMARY | 2024-09-03 13:25 | XMS_ITS | Encounter Summary ---
Author Organization [facility] Address [address] [place] [address] Care Team Providers Care Veneer Trimmer Name Role Phone Helen Hines Primary Care Provider [phone] Encounter Details Date Type Department Care Team (Late st Contact Info) Description 2024 myChart Message [facility] [address] [place] [address] Juan R Turner MD [address] [facility] Interventional [place] [address] Back pain Social History Tobacco Use Types [...] Description 02/25/2025 3:00 PM EST Office Visit [facility] Multiple Sclerosis Clinic [address] [place] [id number] Corporate Counselor: Donna Monte documented as of this encounter Visit Diagnoses Not on filedocumented in this encounter Care Teams Veneer Trimmer Relationship Specialty Start Date End Date Helen Hines [address] [facility] [place] [address] PCP - General Internal Medicine 06/25/21 documented as of this encounter
== END 2024-09-03 13:27 | disposition home or self-care (01) ==
LOC: HO.HMCC 11:56
PROVIDERS: PCP Internal Medicine; Visit Provider Internal Medicine
DX: G35 Multiple sclerosis (principal); C73 Malignant neoplasm of thyroid gland; E53.8 Deficiency of other specified B group vitamins; M48.00 Spinal stenosis, site unspecified; Z00.00 Encounter for general adult medical examination without abnormal findings; Z53.20 Procedure and treatment not carried out because of patient's decision for unspecified reasons

== ENCOUNTER → 2024-09-03 11:55 | Outpatient (BNVA) | payer BC, SELFPAY | PROVIDERS: PCP Internal Medicine; Visit Provider Internal Medicine | DX: Z13.89 Encounter for screening for other disorder (principal) ==

== ENCOUNTER 2024-09-13 08:48 | Outpatient (REF) | payer BC, SELFPAY ==
[2024-09-13 11:08] LABS: Influenza A PCR NEGATIVE (Negative); Influenza B PCR NEGATIVE (Negative); Resp Syncy Virus RNA Qual PCR NEGATIVE (Negative); SARS COV2 PCR INHOUSE NEGATIVE (Negative)
== END 2024-09-13 08:49 | disposition home or self-care (01) ==
LOC: HO.LAB 08:48
PROVIDERS: Physician Assistant; PCP Internal Medicine
DX: J02.9 Acute pharyngitis, unspecified (principal); R09.89 Other specified symptoms and signs involving the circulatory and respiratory systems
CPT/HCPCS: 0241U; 87880

== ENCOUNTER 2024-09-13 08:48 | Outpatient (AMB) | payer BC, SELFPAY ==
[2024-09-13 08:51] VITALS: BP 106/62; PULSE 105; TEMP 37.1; O2SAT 97; BMI 27.7
--- NOTE | 2024-09-13 08:51 | AM.OFFWIN_ITS ---
Intake Vital Signs 09/13/24 08:51 Height 5 ft 4 in Weight 161 lb 6 oz BMI 27.7 BP 106/62 Blood Pressure Location Lt brachial Position Sitting Pulse 105 H Pulse Source Pulse Oximeter Temp 98.7 F Temp Source Oral Pulse Oximetry (%) 97 Oxygen Delivery Method Room Air Intake Visit Reasons: EP sore throat Intake Note: Pt presents to the office today for c/o sore throat,b/l ear pain since yesterday. Patient Tobacco Use Status: Never used Tobacco Allergies latex [LATEX] Allergy (Intermediate, Verified 09/13/24 08:51) HIVES morphine [MORPHINE] Allergy (Intermediate, Verified 09/13/24 08:51) HIVES acetaminophen [From PERCOCET] Allergy (Unknown, Verified 09/13/24 08:51) RASH Interferons [INTERFERONS] Allergy (Unknown, Verified 09/13/24 08:51) ANAPHYLAXIS oxycodone [From PERCOCET] Allergy (Unknown, Verified 09/13/24 08:51) RASH HPI HPI Comments History of Present Illness Details This is a 49-year-old female presenting for evaluation of a sore throat and bilateral ear pain that she has had for the past 1 day. Patient reports a mild headache this morning. Patient is taking Mucinex and ibuprofen without relief of her symptoms. She denies having any fevers, chills, cough or shortness of breath. [facility] Medical History Colonoscopy refused Vitamin B12 deficiency Bunion of great toe Endometrial polyp Dysmenorrhea Spinal stenosis Precancerous lesion Annual physical exam Mammogram normal Normal Pap smear History of atypical skin mole Multiple sclerosis Eczema Psoriasis Papillary thyroid carcinoma Asthma Arthritis Surgical History Hx of hysterectomy H/O left knee surgery H/O spinal fusion H/O total thyroidectomy History of section Family History Father Hodgkins disease Heart disease Mother Degenerative disk disease Skin cancer Social History Housing: House Alcohol intake: current Alcohol intake frequency: holidays/special occasions only Patient Tobacco Use Status: Never used Tobacco e-Cigarette/Vaping Use: Never Used service: No Current occupational status: employed Cognitive needs: No Hearing needs: No Vision needs: Yes Review of Systems Const All systems reviewed & are unremarkable except as noted in HPI and below Denies chills, Denies fatigue, Denies fever(s) and Reports headache(s) Eyes Reports no additional complaints ENT Reports no additional complaints, Reports otalgia, Reports headache(s), Denies sinus pain, Denies sinus pressure, Reports sore throat and Denies throat swelli ng Card Reports no additional complaints Resp Reports no additional complaints, Denies cough and Denies pain with cough GI Reports no additional complaints Reports no additional complaints Musc Reports no additional complaints Skin/Breast Reports system reviewed and no additional complaints, except as documented Neuro Reports no additional complaints and Reports headache(s) Psych Reports no additional complaints Endo Reports no additional complaints and Denies fatigue Amandeep/Lymph Reports no additional complaints Aller/Immun Reports no additional complaints and Denies throat swelling Physical Exam Vital Signs: Last Vital Signs Temp 98.7 F 09/13/24 08:51 Pulse 105 H 09/13/24 08:51 BP 106/62 09/13/24 08:51 Pulse Ox 97 09/13/24 08:51 Oxygen Delivery Method Room Air 09/13/24 08:51 BMI result Body Mass Index 27.7 Repeat HR 92bpm, regular Const General: cooperative, healthy appearing, comfortable, no acute distress, well developed, alert, awake and Physically active; No ill appearing Nutritional Appearance: average body habitus Orientation/consciousness: patient oriented x3 Limitations: no limitations HEENT Head: Yes normal to inspection and Yes normocephalic Ears: hearing grossly normal bilaterally, TM's normal bilaterally and EAC's normal General nose exam: Normal external nose present Face and sinus: Yes normal facial exam and Yes sinuses nontender Mouth: Normal oral and palatal mucosa present, oropharynx normal and moist mucous membranes Teeth and gingiva: dentition normal Throat: Yes postnasal drainage Eyes General: appearance normal, both eyes and all related structures Conjunctivae: conjunctivae normal Neck Lymphatic: no lymphadenopathy noted Resp Effort & Inspection: normal respiratory effort Auscultation: clear to auscultation bilaterally Cardio Rate: regular rate Rhythm: regular rhythm Neuro General: patient oriented x3 Psych Appearance: grossly normal Mental Status: mental status grossly normal Insight: Good insight present (Psych) Judgement: Good judgement present (Psych) Results AMB Rapid Strep AMB Rapid Strep Negative Last Edit by Sonia Davis CMA on 09/13/24 09:01 Results Reviewed Results Reviewed: Laboratory Last Values Strep Scn Rapid Clinic Negative 09/13/24 08:58 Rapid strep is negative. Assessment & Plan Assessment & Plan (1) Pharyngitis: Code(s): J02.9 - Acute pharyngitis, unspecified Plan: Rapid strep test is negative. SARS panel is pending. Plan Ibuprofen 600 mg every 6-8 hours as needed and diphenhydramine 12.5 mg every 6 hours for acute management of postnasal drip. Orders: Orders SARS-CoV2/FLU/RSV Today R09.89 - Other specified symptoms and signs involving the circulatory and respiratory systems AMB Rapid Strep Screen Today Z13.9 - Encounter for screening, unspecified Coding Level of Care Code Est Pt Level 3 (21977) Diagnoses Pharyngitis J02.9 Time Spent (min) 20
--- OUTSIDE RECORDS SUMMARY | 2024-09-13 09:02 | XMS_ITS | Encounter Summary ---
Author Organization [facility] Address [address] [place] [address] Care Team Providers Care Credit Balance Specialist Name Role Phone Helen Hines Primary Care Provider [phone] Encounter Details Date Type Department Care Team (Late st Contact Info) Description 2024 myChart Message [facility] Procedure [facility] [address] [place] [address] Juan R Turner MD [address] [place] [address] Interventional [place] [address] Back pain Social History Tobacco Use Types [...] Care Team (Late st Contact Info) Description 09/27/2024 1:20 PM EDT Office Visit [facility] [address] [place] [id number] Jimy Del Angel MD PhD [address] [place] [address] 02/25/2025 3:00 PM EST Office Visit [facility] Multiple Sclerosis Clinic [address] [place] [address] Molder Hand: Donna Monte documented as of this encounter Visit Diagnoses Not on filedocumented in this encounter Care Teams Credit Balance Specialist Relationship Specialty Start Date End Date Helen Hines [address] [place] [address] PCP - General Internal Medicine 06/25/21 documented as of this encounter
== END 2024-09-13 09:14 | disposition home or self-care (01) ==
PROVIDERS: PCP Internal Medicine; Visit Provider Physician Assistant
DX: Z13.9 Encounter for screening, unspecified (principal); J02.9 Acute pharyngitis, unspecified

== ENCOUNTER 2024-09-19 17:44 | Outpatient (REF) | payer BC, SELFPAY ==
--- NOTE | ~2024-09-19 | MR_ITS ---
CLINICAL HISTORY: MS MR cervical spine without gadolinium Comparison: None provided Findings: Normal postsurgical vertebral body alignment, status post C5-C6 fusion. No acute fractures or pathologic bone lesions. The cord signal is normal. The spinal cord is normal in caliber. Visualized portions of the posterior fossa appear normal. Individual levels: C2-C3: Unremarkable. C3-C4: Small posterior disc protrusion. No central canal stenosis or neural foraminal narrowing. C4-C5: Small posterior disc protrusion. Minimal bilateral neural foraminal narrowing. No central canal stenosis. C5-C6: Unremarkable. C6-C7: Right eccentric disc protrusion with moderate right neural foraminal narrowing. No central canal stenosis. C7-T1: Unremarkable. Impression: No cord signal abnormality to suggest demyelinating disease within the cervical spinal cord. Degenerative and postsurgical changes as detailed. This document has been electronically signed by: Regis Lopez MD on 09/21/2024 08:44:53
--- NOTE | ~2024-09-19 | MR_ITS ---
CLINICAL HISTORY: MS MR thoracic spine without gadolinium Comparison: None provided. Findings: Normal alignment. No acute fracture or pathologic bone lesion. There is no cord signal abnormality to suggest demyelinating disease of the thoracic spinal cord. Small left eccentric disc protrusion at T11-T12 resulting in mild left neural foraminal narrowing, axial 18/34 series 20. No significant spinal canal or foraminal stenoses. No significant degenerative change. Paraspinous musculature intact. IMPRESSION: No acute findings. No cord signal abnormality to suggest demyelinating disease within the thoracic spinal cord. This document has been electronically signed by: Regis Lopez MD on 09/21/2024 11:46:06
--- NOTE | ~2024-09-19 | MR_ITS ---
CLINICAL HISTORY: MS MR Brain without gadolinium Comparison: None provided Findings: No restricted diffusion. No intra-axial mass or hemorrhage. No midline shift. No hydrocephalus. Vascular flow voids are intact. There are several scattered juxtacortical, pericallosal and periventricular white matter lesions bilaterally, within the supratentorial brain. Lesions number proximally 30. There is no restricted diffusion. Orbital contents are unremarkable. The sinuses and mastoid air cells are clear. No focal bone lesion. IMPRESSION: No acute findings. Several scattered white matter lesions bilaterally. No restricted diffusion. This document has been electronically signed by: Regis Lopez MD on 09/21/2024 11:51:51
== END 2024-09-19 17:45 | disposition home or self-care (01) ==
LOC: HO.MRI 17:44
PROVIDERS: PCP Internal Medicine; Visit Provider Student in an Organized Health Care Education/Training Program
DX: G35 Multiple sclerosis (principal)
CPT/HCPCS: 70551; 72141; 72146

== ENCOUNTER → 2024-09-19 18:20 | Outpatient (BNV) | payer BC, SELFPAY | PROVIDERS: PCP Internal Medicine; Visit Provider Radiology Vascular & Interventional Radiology | DX: M50.223 Other cervical disc displacement at C6-C7 level (principal); M51.24 Other intervertebral disc displacement, thoracic region; R90.82 White matter disease, unspecified | CPT/HCPCS: 70551; 72141; 72146 ==

== ENCOUNTER 2024-10-07 16:05 | Outpatient (AMB) | payer BC, SELFPAY ==
[2024-10-07 16:08] VITALS: BP 96/50; PULSE 78; TEMP 36.9; O2SAT 95; BMI 27.6
--- NOTE | 2024-10-07 16:08 | AM.OFFWIN_ITS ---
Intake Vital Signs 3 10/07/24 16:08 Height 5 ft 4 in Weight 161 lb BMI 27.6 BP 96/50 L Blood Pressure Location Rt brachial Position Sitting Pulse 78 Pulse Source Pulse Oximeter Temp 98.5 F Temp Source Oral Pulse Oximetry (%) 95 Oxygen Delivery Method Room Air Intake Visit Reasons: EP Bump on side of leg Intake Note: presents with swollen mass on right hip, occasional burning sensation x1 day Patient Tobacco Use Status: Never used Tobacco Allergies latex (LATEX) Allergy (Intermediate, Verified 10/07/24 16:11) HIVES morphine (MORPHINE) Allergy (Intermediate, Verified 10/07/24 16:11) HIVES acetaminophen (From PERCOCET) Allergy (Unknown, Verified 10/07/24 16:11) RASH Interferons (INTERFERONS) Allergy (Unknown, Verified 10/07/24 16:11) ANAPHYLAXIS oxycodone (From PERCOCET) Allergy (Unknown, Verified 10/07/24 16:11) RASH Do you need a note to return to daycare/school/sports/work: Yes Return to daycare/school/sports/work/other note: work HPI HPI Comments 2 History of Present Illness0 Details 49 y/ Female patient who presents to the walk in clinic with c/o Noticing Lump right hip. Reports Yesterday felt and noticed a small lump protruding outwards right Hip - Mild tenderness to palpation. She does have pre- exiting Spine and Hip problems - being followed by Orthopedics. She does admit currently loosing weight and now notices alot of sugging Fat on abdomen and Hips. [facility] Medical History (Updated 10/07/24 @ 16:33 by Dawna Aguilar NP) Right hip pain Colonoscopy refused Vitamin B12 deficiency Bunion of great toe Endometrial polyp Dysmenorrhea Spinal stenosis Precancerous lesion Annual physical exam Mammogram normal Normal Pap smear History of atypical skin mole Multiple sclerosis Eczema Psoriasis Papillary thyroid carcinoma Asthma Arthritis Surgical History Hx of hysterectomy H/O left knee surgery H/O spinal fusion H/O total thyroidectomy History of section Family History Father Hodgkins disease Heart disease Mother Degenerative disk disease Skin cancer Social History Housing: House Alcohol intake: current Alcohol intake frequency: holidays/special occasions only Patient Tobacco Use Status: Never used Tobacco e-Cigarette/Vaping Use: Never Used service: No Current occupational status: employed Cognitive needs: No Hearing needs: No Vision needs: Yes Review of Systems Const All systems reviewed & are unremarkable except as noted in HPI and below Physical Exam Vital Signs: Last Vital Signs Temp 98.5 F 10/07/24 16:08 Pulse 78 10/07/24 16:08 BP 96/50 L 10/07/24 16:08 Pulse Ox 95 10/07/24 16:08 Oxygen Delivery Method Room Air 10/07/24 16:08 BMI result Body Mass Index 27.6 Const General: no acute distress Nutritional Appearance: overweight Orientation/consciousness: patient oriented x3 Neuro General: patient oriented x3, gait normal and moves all extremities Extrem Right lower extremity: hip/thigh Details: tenderness Location: of the hip Location: laterally and normal ROM; no swelling and no unusual warmth Left lower extremity: normal to inspection, full ROM and hip/thigh Details: normal to inspection Upper/lower leg/hip images: 2 1. No lumps or bumps present, Mild tenderness. Psych Speech and movement: Normal speech and movement present Assessment & Plan Assessment & Plan (1) Right hip pain: Code(s): M25.551 - Pain in right hip Plan: Unable to palpate any lumps or Bumps. No swelling or deformity right hip. Mild tenderness on palpation. Ice/Hot NSAIDs for pain relief. Continue f/u with Ortho as scheduled. Coding Level of Care Code Est Pt Level 4 (80610) Diagnoses Right hip pain M25.551 Time Spent (min) 20
== END 2024-10-07 16:33 | disposition home or self-care (01) ==
PROVIDERS: PCP Internal Medicine; Visit Provider Nurse Practitioner Family
DX: M25.551 Pain in right hip (principal)

== ENCOUNTER 2025-02-01 10:02 | Outpatient (REF) | payer BC, SELFPAY ==
--- NOTE | ~2025-02-01 | MM_ITS ---
EXAMINATION: MM SCREENING DIGITAL BREAST TOMOSYNTHESIS, BILATERAL CLINICAL INFORMATION: Screening. Asymptomatic. COMPARISON: Mammography: Comparison is made with available priors TECHNIQUE: Digital breast mammography with tomosynthesis is performed in both the craniocaudal and mediolateral oblique views along with computer-aided detection (CAD). FINDINGS: There are scattered areas of fibroglandular density. There are no significant masses, abnormal calcifications, or other abnormalities. MM/MM tomosynthesis screening BI IMPRESSION: No mammographic evidence of malignancy. ASSESSMENT: BI-RADS Category 1: Negative RECOMMENDATION: Routine annual mammography screening. 1 year F/U This examination should not preclude the clinical evaluation of a suspicious palpable abnormality. This patient's information was entered into a reminder system with a target due date for their next mammogram. Electronically signed by: Ruthy Sierra DO 02/04/2025 07:44 PM [place]
--- OUTSIDE RECORDS SUMMARY | 2025-02-01 10:05 | XMS_ITS | Encounter Summary ---
Author Organization [facility] Address [address] [place] [address] Care Team Providers Care Community Support Specialist Name Role Phone Helen Hines Primary Care Provider [phone] Encounter Details Date Type Department Care Team (Late st Contact Info) Description 01/23/2020 Orders Only [facility] Interventional Radiology [address] [place] [address] [id number] Niurka Lee MD [address] [place] [address] Social History Tobacco Use Types Packs/Day Years [...] Description 02/25/2025 3:00 PM EST Office Visit [facility] Multiple Sclerosis [facility] [address] [place] [address] Modeling And Simulation Analyst: Dnona Monte documented as of this encounter Visit Diagnoses Not on filedocumented in this encounter Care Teams Community Support Specialist Relationship Specialty Start Date End Date Helen Hines [address] [place] [address] PCP - General Internal Medicine 06/25/21 documented as of this encounter
--- OUTSIDE RECORDS SUMMARY | 2025-02-01 10:05 | XMS_ITS | Encounter Summary ---
Author Organization [facility] Address [address] [place] [address] Care Team Providers Care Straight Truck Driver Name Role Phone Helen Hines Primary Care Provider [phone] Encounter Details Date Type Department Care Team (Late st Contact Info) Description 10/11/2021 Telephone [facility] Neurology Clinic [address] [place] [address] Telephone Intake, Staff Social History Tobacco [...] EDT Called patient, approval on 09/24/21 for [facility] to return our call , did she have the scans done . Will wait for pt to return call , new auth needed, needs 3T machine * Telephone Encounter - Anne Mclean - 10/11/2021 9:02 AM EDT ----- Message from Cherry Delaney LPN sent at 10/07/2021 12:55 PM EDT ----- Sh needs her MRI done at [facility] documented in this encounter Plan of Treatment Upcoming Encounters Date Type Department Care Team (Late st Contact Info) Description 02/25/2025 3:00 PM EST Office Visit [facility] Multiple Sclerosis Clinic [address] [place] [phone] Taxi Driver Supervisor: Donna Monte documented as of this encounter Visit Diagnoses Not on filedocumented in this encounter Care Teams Straight Truck Driver Relationship Specialty Start Date End Date Helen Hines [address] [place] [address] PCP - General Internal Medicine 06/25/21 documented as of this encounter
--- OUTSIDE RECORDS SUMMARY | 2025-02-01 10:05 | XMS_ITS | Encounter Summary ---
Author Organization [facility] Address [address] [place] [address] Phone Care Team Providers Care Lead Principal Technical Architect Name Role Phone Helen Hines MD Primary Care Provider [phone] Reason for Visit * Reason Comments Medication Refill Encounter Details Date Type Department Care Team (Late st Contact Info) Description 01/28/2025 Refill [facility] [address] [place] [address] [place] [address] Kristi Roy MD [address] [place] [phone] [email or web address] Medication Refill Social History Tobacco Use Types Packs/Day Years Used Date Smoking Tobacco: Never Smokeless Tobacco: Never Alcohol Use Standard Drinks/Week Comments Yes 0 (1 standard drink = 0.6 oz pur e alcohol) social Education Answer Date Recorded Are you interested in more education? Not on serina e 07/29/2022 Are you concerned about learning? Not on file 07/29/2022 No 07/29/2022 No 07/29/2022 Digital Access Answer Date Recorded No 08/27/2022 No 08/27/2022 Reliable internet access at home? Not on file 08/27/2022 Device with a working camera? Not on file Comments Unknown Sex and Gender Information Value Date Recorded Sex Assigned at Not on file Legal Sex Female 10:30 PM EDT Gender Identity Not on file Sexual Orientation Not on file documented as of this encounter Progress Notes * Aixa Rich, EARNEST - 01/30/2025 1:51 PM EDT I called and spoke tp the pt she stated that she have not done labs and that she will get them donesometime this week and will call if she need a refills or if she need labs slips sent again * Kristi Roy MD - 01/29/2025 1:38 PM EDT She is overdue for repeat labs after last dose adjustment, pls obtain results if done or remind herto have done * Chinyere Kerns MA - 01/29/2025 8:45 AM EDT Rx Care Gap Status - Instructions for Clinical Staff (prescriber discretion applies): > Mismatch review guide > At least one request does not meet full criteria. Specifics below. > Labs due: Please remind patient. > No new orders needed. TSH Visit Info Last visit: 04/11/2024 Kristi Roy MD - Endocrinology [facility] > Requested f/u: Not specified Upcoming visit: 04/10/2025 Kristi Roy MD - Endocrinology [facility] ACTIONS TAKEN BY Chinyere Kerns MA - Labs needed - Teed up orders and/or reminded pt. Thyroid Medication Rx Protocol - levothyroxine sodium Criteria not met; renew for up to 3 months. Visit in the past 14 months: Yes Clinical criteria: - TSH within past year: None (has active order) - Last TSH was normal: N/a Lab Results Component Value Date TSH 0.643 12/22/2021 Health Maintenance Labs Due / Due Soon Topic Date Due LIPID PANEL Never done SCREENING FOR DIABETES Never done documented in this encounter Plan of Treatment Upcoming Encounters Date Type Department Care Team (Late st Contact Info) Description 04/10/2025 4:00 PM EST Telemedicine [facility] [address] [place] [address] Kristi Roy MD [address] [address] [email or web address] documented as of this encounter Visit Diagnoses Diagnosis Postoperative hypothyroidism Postsurgical hypothyroidism documented in this encounter Care Teams Lead Principal Technical Architect Relationship Specialty Start Date End Date Helen Hines MD [address] [place] [address] PCP - General Internal Medicine 03/28/23 documented as of this encounter Additional Source Comments The information contained in this document represents components of the legal health record. It is not the complete legal health record.[facility]
--- OUTSIDE RECORDS SUMMARY | 2025-02-01 10:05 | XMS_ITS | Encounter Summary ---
Author Organization [facility] Address [address] [place] [address] Care Team Providers Care Animal Control Supervisor Name Role Phone Helen Hines Primary Care Provider [phone] Encounter Details Date Type Department Care Team (Late st Contact Info) Description 09/23/2021 Telephone [facility] Central Scheduling Department [address] [place] [address] Telephone Intake, Staff Social History Tobacco Use [...] AM EDT DOCUMENTATION PURPOSE ONLY lvm AT [phone] TO SEE ABOUT PT authorization for MRI to go to [facility] to get it done there documented in this encounter Plan of Treatment Upcoming Encounters Date Type Department Care Team (Late st Contact Info) Description 02/25/2025 3:00 PM EST Office Visit [facility] [address] [place] [address] Last Code Striper: Donna Monte documented as of this encounter Visit Diagnoses Not on filedocumented in this encounter Care Teams Animal Control Supervisor Relationship Specialty Start Date End Date Helen Hines [address] [place] [address] PCP - General Internal Medicine 06/25/21 documented as of this encounter
--- OUTSIDE RECORDS SUMMARY | 2025-02-01 10:05 | XMS_ITS | Patient Health Record ---
Author Organization [facility] Address [address] [facility] [place] [address] Care Team Providers Care Sales And Management Trainee Name Role Phone Helen Hines MD Primary Care Provider Love Escalante Unavailable [phone] Allergies Allergen (clinical drug ingredient) Drug/Non Drug Allergy documented on EMR Reaction Allergy Type Onset Date Status Adhesive taveras Allergy Active codeine Codeine rash Drug Allergy Active Reason For Referral No Information Medications Medication SIG (Take, Route, Frequency, Duration) Notes Start Date End Date Status Tecfidera 240 MG Oral; Duration: 30 Active Sertraline HCl 100 MG Oral; Duration: 60 Active Synthroid 175 MCG Oral; Duration: 60 Active Biotin viviscal Not-Taking Feldene 20 MG 1 capsule with food Orally Once a day; Duration: 14 days 03/03/2021 Not-Taking Immunizations Vaccine Route [...] Problem Status W/U Status Risk Notes Problem Acquired hallux valgus (82395093) Hallux valgus (acquired), left foot (M20.12) Active confirmed Problem Acquired hallux valgus (66612948) Hallux valgus (acquired), right foot (M20.11) Active confirmed Plan Of Treatment Pending Test Test Name Order Date X ray : Foot, left 3V 03/03/2021 X ray : Foot, right 3V 03/03/2021 X ray : Foot, right 3V 06/29/2021 80040, [id number] INJECT TENDON ORIGIN/INSER T 06/29/2021 Insurance Providers Payer Name Payer Address Payer Phone Subscriber Number Group Number Insured Name Patient Relationship to Insured Coverage Start Date Coverage End Date [facility] [address] [place] [address] [id number] Teresa Shepherd Self - patient is the insured Medical (General) History Medical History History ICD Code asthma Back,Hip,and Knee pain thyroid cancer Multiple sclerosis Eczema Chicken pox Surgical History Surgery Date(Month/Year) back/neck fusion 2002 thyroidectomy 2005 section 2010
--- OUTSIDE RECORDS SUMMARY | 2025-02-01 10:05 | XMS_ITS | Clinical Summary ---
Author Organization [facility] Address [address] [place] [address] Care Team Providers Care Barrel Filler Head Name Role Phone Helen Hines Primary Care Provider [phone] Allergies Active Allergy Reactions Criticality Noted Date Comments Adhesive Tape-Silicones Dermatitis 01/27/2023 Interferon Beta-1b Unknown Glatiramer Unknown Latex Unknown Morphine Unknown 07/16/2018 Morphine In Dextrose 5 % Unknown Morphine Sulfate Unknown Oxycodone-Acetaminophen Unknown Interferon Beta-1a (Albumin) Angioedema High Medications levothyroxine (SYNTHROID, LEVOTHROID) 175 mcg tablet Take 175 mcg by mouth daily. On sundays takes 175 mcg plus additional 1/2 of 175 mcg Active ofatumumab (Kesimpta Pen) 20 mg/0.4 mL [...] A DAY 90 tablet 3 5 Active cholecalciferol (VITAMIN D3) 2,000 unit tablet Take 1 tablet (2,000 Units total) by mouth once a day. 30 tablet 11 5 05/21/20 26 Active cyanocobalamin (vitamin B-12) 1,000 mcg tablet Take 1 tablet (1,000 mcg total) by mouth once a day. 30 tablet 2 5 Active magnesium oxide (MAG-OX) 400 mg (241.3 mg mag) tablet TAKE 1 TABLET BY MOUTH ONCE A DAY. 90 tablet 2 5 Active ofatumumab (Kesimpta Pen) 20 mg/0.4 mL pen injectorIndicat ions:Multiple sclerosis Inject 0.4 mL (20 mg total) under the skin every 28 days. 1.2 mL 3 01/23/2025 9:43 AM EDT 5 Active Active Problems Problem Noted Date Diagnosed Date Vitamin D deficiency 01/29/2018 Chronic fatigue 08/11/2014 Vitamin B12 deficiency 06/13/2014 Depression 06/09/2014 Neurogenic bladder 07/17/2013 Restless legs syndrome 07/17/2013 Multiple sclerosis 02/13/2012 Encounters Date Type Department Care Team Description 01/30/2025 Orders Only [facility] [address] [place] [phone] Flame Annealing Machine Setter: Yaneth Walton LPN Urinary tract infection without hematuria, site unspecified (Primary Dx) 01/30/2025 Telephone [facility] [address] [place] [address] Flame Annealing Machine Setter: Donna Monte Telephone Intake, Staff PAC Clinical Questions 01/30/2025 myChart Message [facility] [address] [place] [address] Flame Annealing Machine Setter: Geraldine Fall MD Symptom 01/16/2025 Refill [facility] [address] [place] [address] Flame Annealing Machine Setter: Geraldine Fall MD Multiple sclerosis 11/24/2024 Refill [facility] [address] [place] [address] [phone] Flame Annealing Machine Setter: Donna E Confalone Mike, Susana E., DO from Last 3 Months Social History Tobacco [...] 84 01/19/2024 12:32 PM EDT Temperature 36.5 C (97.7 F) 01/27/2023 11:07 AM EDT Respiratory Rate - - Oxygen Saturation 99% 06/13/2023 2:55 PM EDT Inhaled Oxygen Concentration - - Weight 74 kg (163 lb 3.2 oz) 07/16/2018 11:15 AM EDT Height 162.6 cm (5' 4 ) 09/12/2016 11:58 AM EDT Body Mass Index 28.01 09/12/2016 11:58 AM EDT Plan of Treatment Upcoming Encounters Date Type Department Care Team (Late st Contact Info) Description 02/25/2025 3:00 PM EST Office Visit [facility] [address] [place] [phone] Flame Annealing Machine Setter: Donna Monte Health Maintenance Due Date Last Done Comments Cervical Cancer Screening 1974 Cologuard 1974 Colon Cancer Screening 1974 Colonoscopy 1974 FOBT / Fit Test 1974 HPV and Pap Smear 1974 Pap Smear 1974 Sigmoidoscopy 1974 Hepatitis B Vaccines (1 of 3 - 19+ 3-dose series) 1993 Pneumococcal Vaccine: 50+ Ye ars (1 of 2 - PCV) 1993 DTaP,Tdap,and Td Vaccines (1 - Tdap) 1996 Mammogram 2014 Alcohol/Substance Use Screening 04/03/2024 Depression Screening and Follow-Up 04/03/2024 Social Drivers of Health Susana ual Screening 04/03/2024 Zoster Vaccines (1 of 2) 2024 COVID-19 Vaccine (6 - 2024-2 6 season) 2024 07/08/2023, 02/19/2021, 02/18/2021, Additional history exists Influenza Vaccine (#1) 2024 01/22/2020 RSV Vaccine (60+ years old a nd patients) (1 - 1-dose 75+ series) 2049 HIV Screening Completed 08/14/2023, 12/02, 02/13/2012 Hepatitis C Screening Completed 08/14/2023 , 12/13/2022, 02/13/2012 Procedures * Due to [place] [employer] law, this organization might not be sharing negative HIV tests. Procedure Name Priority Date/Time Associated Diagnosis Comments HEPATITIS PANEL, ACUTE Routine 08/14/2023 9:50 AM EDT Multiple sclerosis Vitamin B12 deficiency Vitamin D deficiency Restless legs syndrome Chronic fatigue CD4 COUNTS Routine 02/13/2012 1:06 PM EST from Last 3 Months or Most Recently Relevant to Health Maintenance Results * Due to [place] [employer] law, this organization might not be sharing negative HIV tests. * Hepatitis Panel, Acute (08/14/2023 9:50 AM EDT) Hepatitis A IgM NON-REACT CHARLES NON-REACT CHARLES 08/14/2023 6:58 PM EDT [facility] Hepatitis B Surface Antigen NON-REACT CHARLES NON-REACT CHARLES 08/14/2023 6:58 PM EDT [facility] Hepatitis B Core Antibody NON-REACT CHARLES NON-REACT CHARLES 08/14/2023 6:58 PM EDT [facility] Hepatitis C Antibody NON-REACT CHARLES NON-REACT CHARLES 08/14/2023 6:58 PM EDT [facility] Comment: HCV antibody was non-reactive. There is no laboratory evidence of HCV infection. In most cases, no further action is required. However, if recent HCV exposure is suspected, a test for HCV RNA (test code 84584) is suggested. For additional information please refer to http://education.RatherGather/faq/HTF60l7 (This link is being provided for informational/ educational purposes only.) For additional information, please refer to http://education.RatherGather/faq/ERP227 (This link is being provided for informational/ educational purposes only.) Blood Structure of peripheral vein / Unknown Venipuncture / Unknown 08/14/2023 9:50 AM EDT 08/14/2023 10:09 AM EDT Narrative [facility] - 08/14/2023 6:58 PM EDT [facility] Received Date:[id number] Geraldine Powell MD LAB BLOOD ORDERABLES Final Re sult [facility] [address] [address], [place] [address], [facility] [address] [facility] [address], [place] [address], from Last 3 Months or Most Recently Relevant to Health Maintenance Insurance [facility] HMO/POS Care Teams Barrel Filler Head Relationship Specialty Start Date End Date Helen Hines [address] [facility] [place] [address] PCP - General Internal Medicine 06/25/21
--- OUTSIDE RECORDS SUMMARY | 2025-02-01 10:05 | XMS_ITS | Encounter Summary ---
Author Organization [facility] Address [address] [place] [address] Care Team Providers Care Custom Feed Mill Operator Helper Name Role Phone Helen Hines Primary Care Provider [phone] Encounter Details Date Type Department Care Team (Late Contact Info) Description 01/30/2025 Orders Only [facility] Multiple Sclerosis [address] [phone] Machine Shop Inspector: Yaneth Walton LPN Urinary tract infection without hematuria, site unspecified (Primary Dx) Social History Tobacco Use Types Packs/Day Years [...] Encounters Date Type Department Care Team (Late Contact Info) Description 02/25/2025 3:00 PM EST Office Visit [facility] [address] [place] [address] Machine Shop Inspector: Donna Monte Scheduled Orders Name Type Priority Associated Diagnoses Orde r Schedule Urinalysis W/Reflex to Microscopic & Culture Lab Routine Urinary tract infection without hematuria, site unspecified Expected: 01/30/2025, Expires: 01/30/2026 documented as of this encounter Visit Diagnoses Diagnosis Urinary tract infection without hematuria, site unspecified- Primary documented in this encounter Care Teams Custom Feed Mill Operator Helper Relationship Specialty Start Date End Date Helen Hines [address] [place] [address] PCP - General Internal Medicine 06/25/21 documented as of this encounter
--- OUTSIDE RECORDS SUMMARY | 2025-02-01 10:05 | XMS_ITS | Encounter Summary ---
Author Organization [facility] Address [address] [place] [address] Care Team Providers Care Sewage Treatment Plant Operator Name Role Phone Helen Hines Primary Care Provider [phone] Reason for Visit * Reason Comments PAC Clinical Questions Encounter Details Date Type Department Care Team (Late st Contact Info) Description 01/30/2025 Telephone [facility] [address] [place] [address] Metal Stud Framer: Donna Monte Telephone Intake, Staff PAC Clinical Questions Social History Tobacco Use Types Packs/Day Years [...] encounter Miscellaneous Notes * Telephone Encounter - Yaneth Jimenez LPN - 01/30/2025 2:23 PM EDT Called to speak with patient. Patient states on Monday she kept experiencing sharp stabbing pain in her left foot that would comeon go. 9/10 pain level, that was disabling. This has not happened since Monday. Patient states left leg this morning felt as if it were sleeping, it's been all day. Left leg feel more weak than usual. Pins and needles and numbness. Right foot has started with pins and needles aswell. Fatigue- no more than usually. Patient was under some stress with mother being ill. But, that is all taken care of. Patient denies any changes in urine such as frequency and urgency. Denies any recent illnesses. Patient agreed to go for urine test. Urine lab faxed to [id number] in [place] patient will go today. * Telephone Encounter - Amberly Elida - 01/30/2025 10:26 AM EDT Copied from [facility] #[id number]. Topic: Clinical - Messages for Clinical Team >> Jan 30, 2025 10:23 AM Amberly Mayra wrote: Symptoms pain in the feet, left leg numbness How long the symptoms have occurred foot started on Monday, today left leg feels different Any other relative information Patient tried calling nurse line but could not get thru. Patient is requesting to speak with nursing in regards to symptoms. Please reach out to patient at [phone] documented in this encounter Plan of Treatment Upcoming Encounters Date Type Department Care Team (Late st Contact Info) Description 02/25/2025 3:00 PM EST Office Visit [facility] [address] [place] [address] Metal Stud Framer: Donna Monte documented as of this encounter Visit Diagnoses Not on filedocumented in this encounter Care Teams Sewage Treatment Plant Operator Relationship Specialty Start Date End Date Helen Hines [address] [place] [address] PCP - General Internal Medicine 06/25/21 documented as of this encounter
--- OUTSIDE RECORDS SUMMARY | 2025-02-01 10:05 | XMS_ITS | Encounter Summary ---
Author Organization [facility] Address [address] [place] [phone] Care Team Providers Care Office Clin Asst Name Role Phone Helen Hines Primary Care Provider [phone] Encounter Details Date Type Department Care Team (Late st Contact Info) Description 12/29/2021 myChart Message [facility] [address] [place] [address] Saul Lemon MD [address] [place] [address] Vitamin B12 level Social History Tobacco Use [...] Description 02/25/2025 3:00 PM EST Office Visit [facility] [address] [place] [address] [phone] Equal Opportunity Officer: Donna Monte documented as of this encounter Visit Diagnoses Not on filedocumented in this encounter Care Teams Office Clin Asst Relationship Specialty Start Date End Date Helen Hines [address] [facility] [place] [address] PCP - General Internal Medicine 06/25/21 documented as of this encounter
--- OUTSIDE RECORDS SUMMARY | 2025-02-01 10:05 | XMS_ITS | Encounter Summary ---
Author Organization [facility] Address [address] [place] [phone] Care Team Providers Care Associate Merchandiser Name Role Phone Helen Hines Primary Care Provider Encounter Details Date Type Department Care Team (Late Contact Info) Description 01/30/2025 myChart Message [facility] [address] [place] [address] Fountain Supervisor: Geraldine Fall MD [address] [place] [address] [phone] Symptom Social History Tobacco Use Types Packs/Day Years [...] Description 02/25/2025 3:00 PM EST Office Visit [facility] [address] [place] [address] Fountain Supervisor: Donna Monte documented as of this encounter Visit Diagnoses Not on filedocumented in this encounter Care Teams Associate Merchandiser Relationship Specialty Start Date End Date Helen Hines [address] [facility] [place] [address] PCP - General Internal Medicine 06/25/21 documented as of this encounter
--- OUTSIDE RECORDS SUMMARY | 2025-02-01 10:05 | XMS_ITS | Clinical Summary ---
Author Organization [facility] Address [id number] [place] [address] Phone Care Team Providers Care Senior Risk Analyst Name Role Phone Helen Hines MD Primary Care Provider [phone] Allergies Active Allergy Reactions Criticality Noted Date Comments Adhesive Unknown,Other (See Comments) 11/07/2016 Other Reaction(s): redness/swelling Adhesive Tape-Silicones Dermatitis 01/27/2023 Codeine Rash Low 03/28/2023 Glatiramer Unknown 03/06/2023 Interferon Beta-1a (Albumin) Angioedema High 03/06/2023 Interferon Beta-1b Unknown 03/06/2023 Interferons Anaphylaxis High 11/07/2016 Latex Unknown 11/07/2016 Other Reaction(s): itchy, red, hives Lidocaine 03/28/2023 Morphine Hives,Unknown 11/07/2016 Other Reaction(s): itchy/anxiety Morphine In Dextrose 5 % Unknown 03/06/2023 Oxycodone-Acetaminophe n Hives,Unknown 11/07/2016 Medications sertraline (ZOLOFT) 100 MG tablet Take 1 tablet by mouth daily. Active EPINEPHrine 0.3 mg/0.3 mL auto-injector Inject 0.3 mg into the muscle as needed. 2 Active WEGOVY 0.5 mg/0.5 mL subcutaneous injection Inject 0.5 mg under the skin once a week. 4 Active KESIMPTA PEN 20 mg/0.4 mL PnIj 4 Active SYNTHROID 175 mcg tabletIndications:P ostoperative hypothyroidism 1 tablet orally six days/week, 1/2 tablet on the 7th day, or as directed 84 tablet 5 Active Active Problems Problem Noted Date Diagnosed Date Asthma 03/28/2023 Vitamin D deficiency 01/29/2018 Vitamin B12 deficiency 06/13/2014 Major depressive disorder, single episode 2014 Restless legs syndrome 07/17/2013 Multiple sclerosis 02/13/2012 Postoperative hypothyroidism 200 5 Overview (03/28/2023): S/p total thyroidectomy 2004 Assessment & Plan (04/11/2024 5:31 PM EST): Clinically euthyroid. Reports good consistency taking rx. Has lost significant weight in the last year. Will recheck labs & adjust rx as appropriate - would target TSH in lower 1/2 of the normal range given hx of thyroid CA. To call/message via portal if hasn't heard from me with results within 1-2 weeks. If levels normal, will repeat labs yearly, sooner prn symptoms of thyroid dysfunction or > 10-15# weight change, or as otherwise clinically indicated. Assessment & Plan (03/28/2023 2:04 PM EST): Clinically euthyroid. Reports good consistency taking rx, although not entirely consistent in relation to food. Has had some fluctuation in weight in the last year. Will check labs & adjust rx as appropriate - would target TSH in lower 1/2 of the normal range given hx of thyroid CA. To call/message via portal if hasn't heard from me with results within 1-2 weeks. If levels normal, will repeat labs yearly, sooner prn symptoms of thyroid dysfunction or > 10-15# weight change, or as otherwise clinically indicated. Hx of papillary thyroid carcinoma 2004 Overview (03/28/2023): 2.2 x 1.6 x 1.6 cm, right lobe, encapsulated w/o capsular invasion or ETE, 1/[address] +ve, given 152.4 mCI I-131, TBS w/ several foci of uptake in neck, post rx scan unchanged, TBS 2006 - negative, CT neck/chest 2007 negative, TG subsequently undetectable Assessment & Plan (04/11/2024 5:30 PM EST): Has had no evidence of residual or recurrent disease & should be at very low risk. Will target a TSH in the lower 1/2 of the normal range. Will continue to monitor thyroglobulin ~ yearly. Assessment & Plan (03/28/2023 2:15 PM EST): Has had no evidence of residual or recurrent disease & should be at very low risk. Will target a TSH in the lower 1/2 of the normal range. Will check thyroglobulin with labs. Encounters Date Type Department Care Team Description 01/28/2025 Refill [facility] [address] [place] [address] Kristi Roy MD Medication Refill from Last 3 Months Immunizations Immunization Administration Dates Next Due COVID-19 (Pre-01/23) Madonna Vaccine, [id number], P F 02/19/2021,06/29/2020 Family History Medical History Relation Comments Other Mother Family history o f cancer Skin cancer Mother Thyroid disease Mother Relation Status Comments Mother Social History Tobacco Use Types Packs/Day Years Used Date Smoking Tobacco: Never Smokeless Tobacco: Never Tobacco Cessation:Counseling Given: Not Answered Alcohol Use Standard Drinks/Week Comments Yes 0 [...] on file Sexual Orientation Not on file Last Filed Vital Signs Vital Sign Reading Time Taken Comments Blood Pressure 116/74 03/28/2023 10:29 AM EST Pulse 70 03/28/2023 10:29 AM EST Temperature 36.4 C (97.6 F) 03/28/2023 10:29 AM EST Respiratory Rate - - Oxygen Saturation 98% 03/28/2023 10:29 AM EST Inhaled Oxygen Concentration - - Weight 87.7 kg (193 lb 6.4 oz) 03/28/2023 10:29 AM EST Height 162.6 cm (5' 4.02 ) 03/28/2023 10:[address] Body Mass Index 33.18 03/28/2023 10:29 AM EST Plan of Treatment Upcoming Encounters Date Type Department Care Team (Late st Contact Info) Description 04/10/2025 4:00 PM EST Telemedicine [facility] [address] [place] [address] [place] [address] Kristi Roy MD [address] [place] [phone] [email or web address] Due Date Last Done Comments Adult Td,Tdap Booster 1974 LIPID PANEL 1974 DEPRESSION SCREENING 1986 HIV ONE-TIME SCREENING (18-65 YEARS) 1992 PNEUMOCOCCAL VACCINES (50+ years) (1 of 2 - PCV) 1993 PAP SMEAR 08/27/1995 SCREENING FOR DIABETES 2009 MAMMOGRAM 2014 COLOGUARD 08/27/2019 COLONOSCOPY 08/27/2019 COLORECTAL CANCER SCREENING 08/27/2019 FIT TEST 08/27/2019 FOBT 08/27/2019 SIGMOIDOSCOPY 08/27/2019 VIRTUAL COLONOSCOPY 08/27/2019 RSV VACCINE (1 - Risk 50-74 years 1-dose series) 2024 ZOSTER VACCINES (1 of 2) 2024 INFLUENZA VACCINE (#1) 2024 COVID-19 VACCINE (3 - season) 2024 02/19/2021, 06/29/2020 TSH LEVEL 07/05/2025 07/05/2024, 05/0 07/2023, 12/22/2021, Additional history exists HEPATITIS C SCREENING Completed 12/13/2022 SMOKING STATUS SCREENING (Once After 26 Yrs) Completed 04/11/2024 HEPATITIS A VACCINES Aged Out No long er eligible based on patient's age to complete this topic HIB VACCINES Aged Out No longer eligi ble based on patient's age to complete this topic MENINGOCOCCAL VACCINES (ACWY) Aged Out No longer eligible based on patient's age to complete this topic MENINGOCOCCAL VACCINES (B) Aged Out N o longer eligible based on patient's age to complete this topic Medical Devices Not on file Procedures Procedure Name Priority Date/Time Associated Diagnosis Comments TSH Routine 07/05/2024 4:25 PM EDT OUTSIDE HEPATITIS C VIRUS SCREENING Routine 12/13/2022 from Last 3 Months or Most Recently Relevant to Health Maintenance Results * TSH (07/05/2024 4:25 PM EDT) Historical Provider MD LAB BLOOD ORDERABLES Tila l Result * Outside Hepatitis C Virus Screening (12/13/2022) Hepatitis C Screening - External Neg Historical Provider MD LAB BLOOD ORDERABLES Tila l Result from Last 3 Months or Most Recently Relevant to Health Maintenance [place] [address] [place] [address] [place] [address] [facility] [place] [place] [address] [facility] Care Teams Senior Risk Analyst Relationship Specialty Start Date End Date Helen Hines MD [address] [place] [address] PCP - General Internal Medicine 03/28/23 Additional Source Comments The information contained in this document represents components of the legal health record. It is not the complete legal health record.[facility]
--- OUTSIDE RECORDS SUMMARY | 2025-02-01 10:05 | XMS_ITS | Patient Health Record ---
Author Organization [facility] Address [address] [place] [address] Care Team Providers Care Application Support Intern Name Role Phone Angela Marina Unavailable [phone] Reason For Referral No Information Medications Medication SIG (Take, Route, Fr equency, Duration) Notes Start Date End Date Status Synthroid 175 MCG 1 ORAL daily; Duration: -3 Buck-MJ 04/12 Active Zoloft 100MG 0.5TAB ORAL daily; Duration: -3 Buck-MJ 04/12 Active Tecfidera 240MG 1 ORAL twice daily; Duration: -3 Buck-MJ 0 04/12/2013 Active Problems Problem Type SNOMED Code ICD Code Onset Dates Problem Status W/U Status Risk Notes Problem Female genital organ symptoms (492622870) Other specified symptom associated with female genital organs (625.8) Active confirmed Major Problem Irregular menstrual cycle (07449757) Irregular menstrual cycle (626.4) Active confirmed Diag Problem Contraception care education (586647056) Other general counseling and advice for contraceptive management (V25.09) Active confirmed Diag Plan Of Treatment No Information Insurance Providers Payer Name Payer Address Payer Phone Subscriber Number Group Number Insured Name Patient Relationship to Insured Coverage Start Date Coverage End Date [facility] [address] [place] [address] [id number] JONA GAONA Self - patient is the insured
[2025-02-01 12:09] LABS: Free T4 (Free Thyroxine) 1.12 ng/dL (0.71-1.85)
== END 2025-02-01 10:03 | disposition home or self-care (01) ==
LOC: HO.MAMMO 10:02
PROVIDERS: Absent Provider Internal Medicine Endocrinology, Diabetes & Metabolism; PCP Internal Medicine; Visit Provider Internal Medicine
DX: Z12.31 Encounter for screening mammogram for malignant neoplasm of breast (principal); Z13.29 Encounter for screening for other suspected endocrine disorder
CPT/HCPCS: 36415; 77063; 77067; 84439; 84443

== ENCOUNTER → 2025-02-01 10:15 | Outpatient (BNV) | payer BC, SELFPAY | PROVIDERS: Absent Provider Internal Medicine Endocrinology, Diabetes & Metabolism; PCP Internal Medicine; Visit Provider Internal Medicine | DX: Z12.31 Encounter for screening mammogram for malignant neoplasm of breast (principal) | CPT/HCPCS: 77063; 77067 ==

== ENCOUNTER 2025-03-03 11:39 | Emergency (ER) | payer BC, SELFPAY ==
--- OUTSIDE RECORDS SUMMARY | 2025-02-25 15:00 | XMS_ITS | Encounter Summary ---
Author Organization [facility] Address [address] [place] [address] Care Team Providers Care Tenoner Operator Name Role Phone Helen Hines Primary Care Provider [phone] Reason for Visit * Consultation (Routine) - Authorized Specialty Diagnoses / Procedures Referred By Abraham boyer Referred To Contact Neurology Diagnoses Multiple sclerosis Procedures FOLLOW UP MS [facility] VIDEO Helen Hines [address] [place] [address] Phone: tel: fax: Geraldine Powell MD [address] [place] [id number] Phone: tel: fax: Referral ID Status Reason Start Date Expiration Date V isits Requested Visits Authorized [id number] Authorized 08/16/2024 08/16/2025 6 6 Encounter Details Date Type Department Care Team (Late st Contact Info) Description 02/25/2025 3:00 PM EST Office Visit [facility] [address] [place] [phone] Art Critic: Susana Wiley DO [address] [place] [phone] Multiple sclerosis (Primary Dx) Social History Tobacco Use Types Packs/Day Years Used Date Smoking Tobacco: Never Smokeless Tobacco: Never Comments:: Comments Unknown Sex and Gender Information Value Date Recorded Sex Assigned at Female 03/30/2023 1:51 PM EST Legal Sex Female 10:04 AM EDT Gender Identity Female 03/30/2023 1:51 PM EST Sexual Orientation Straight 03/30/2023 1: 51 PM EST documented as of this encounter Last Filed Vital Signs Vital Sign Reading Time Taken Comments Blood Pressure 114/73 02/25/2025 3:20 PM EST Pulse 97 02/25/2025 3:20 PM EST Temperature - - Respiratory Rate - - Oxygen Saturation - - Inhaled Oxygen Concentration - - Weight - - Height - - Body Mass Index - - documented in this encounter Progress Notes * Geraldine Powell MD - 02/26/2025 11:28 AM EST I saw and evaluated the patient. Case discussed with the resident/fellow and I agree with the findings and plan as documented in the resident's/fellow's note. * Susana Mckeon DO - 02/25/2025 3:00 PM EST [facility] Chief Complaint: Teresa Shepherd is a 49 y.o. right hand dominant woman seen today for follow-up evaluation of relapsing-remitting multiple sclerosis. OPTIMUM enrolled: Not assessed yet Clinical trial enrollment: N/A Clinical Summary Diagnosis: Relapsing-Remitting Multiple Sclerosis Diagnosis code: 1 Disease Activity in the Prior Year: Indeterminate Date of Symptom Onset: 2002 Date of Diagnosis: 2004 Clinical Flare History: Symptoms Date (MM/YYYY) Comments (treatments, duration) - Treatment History: Medication Start date Stop date Notes (dosing, adherence, efficacy) Rebif unk unk Anaphylactic reaction Copaxone unk unk Anaphylactic reaction Dimethyl Fumarate November Has been using 240 mg once daily PO due to flushing phenomenon. ofatumamab Jan-2024 ongoing - High Accuracy: [] History of Present Illness Narrative Initial History: Teresa Shepherd is a 49 y.o. Right-handed woman with the history relapsing- remitting multiple sclerosis, currently on Tecfidera 240 mg daily, anaphylactic reaction to Rebif and Copaxone, thyroid cancer, s/p thyroidectomy, chronic fatigue, restless legs syndrome, depression, neurogenic bladder, who was seen today as a follow up appointment. She was diagnosed with MS in 2004 and has been on Tecfidera 240 mg PO daily only since November 2012. Previous notes She reports many difficulties with fatigue some days she goes to bed at 5 PM when she sleeps untilthe next day. Teresa reported overall feeling well. However, she noticed being more fatigued lately and having to go to bed at 6 pm. She sleeps well. She has had more stiffness in bilateral legs. She has had muscle cramping for a a long time and it has been stable; stretching helps. She reported that 2 days agoshe had 1-1.5 days of intermittent episodes of dizziness, which would occur while standing up and moving and would feel like she is losing her balance, not associated with nausea, vomiting, lightheadedness, hearing changes, tinnitus, loss of consciousness. Those episodes are brief about a few seconds. She claimed being well-hydrated at the time and not having any signs of infection. She also notic ed worsened weakness in bilateral upper legs. Her arms are strong overall, but she may drop objectsevery once in a while. Overall, her gait and balance had no issues. She has had chronic back pain, which has been stable. She has not been doing PT. She has had tingling/numbness in bilateral legs and sensation of buzzing in them at around night time, which has been stable and not particularly bothersome. She denied bowel/bladder issues. 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 She has a history of migraine, but has not had one in years. Her memory and cognitive function has been not great, she has some word-finding difficulties in the end of the day when she is tired, but overall this has notprogressed lately. She is able to keep up with her job. She denied mood change. Her vision has beenstable and she sees Ophthalmology regularly. She has been tolerating Tecfidera well and thinks thatit has been helping her. She mentioned new pain in the Left wrist, worse with active and passive movements, with some stiffness worse at night and in the morning that started a few days ago. She has longstanding pain in the operated Left knee and some pain in bilateral toe joints. She has a family history of RA in mother. She has not seen Rheumatology. She mentioned that in May 2021 she underwent hysterectomy and subsequently was found to have low vit B12, has been on replacement, but has not re-checked the serum level lately. She denied otherrecent medication changes or other hospital admissions. She contracted COVID infection in July 2021, recovered well. She is vaccinated against COVID with J&J, her only booster was on 02/18/2021.Due to her Rebif and Copaxone anaphylactic reaction she would like to check with MS clinic whether it would be safe for her to get the next booster with mRNA vaccine. Pt had a new evidence of optic neuritis by OCT with her eye exam and decrease vision in Nov 2022. Interval History: She was last seen via telehealth by me in August. She expressed overall clinical stability save for some increased pain and numbness in her hands. Possibly in the setting cervical disc disease or MS. She obtained new baseline MRI brain, C and T spine in September. Unfortunately images are not available forme to review. Today, History was provided by patient, who is a good historian. At the end of January/early February she had knife stabbing pain in her left foot that was on and off for a day. This then progressed to her left leg feeling like rubber . This then progressed to pins and needles sensation in her left leg that then spread to her right leg. She has never had symptoms in her left leg before. That night she had symptoms that sounded like RLS. She also had a burningsensation in the bottoms of her feet and brain fog. She was given IV steroids for 3 days followed by a PO taper after making sure that she did not have an infection. She feels that her body sensationis mostly back to normal but that anything cold on her feet leaves burning sensation, she still hassome leg discomfort, and she is more tired. No infections since she was last here Got her COVID vaccine in December and is planning to get her flu vaccine soon Her next dose of Kesimpta is on Monday. She has not had issues with the injections Current MS-relevant Review of Systems: Yes No Description Fatigue [x] [] Pretty bad. She is still able to work but feels that she is tired all the time. She is now tired from making dinner after a day of work (not as bad as it was before the steroids) Cognitive [x] [] Word finding issues and memory lapses Depression/Anxiety [] [x] Visual/brainstem [] [x] No change in vision. Has an upcoming eye appointment. No double vision. No pain moving eyes. No issues chewing or swallowing. No change sensation or pain on the face. No change in hearing. Long standing ringing in the eras. Last few days when she had feeling that she was spinning that lasts for a split second Weakness [x] [] Intermittent weakness in the legs. No falls. No walking devices. Not currently in PT Spasticity/spasms [x] [] Intermittently in the legs-- more at night. States at least 1x a day. Being distracted helps her Tremors [] [x] Pain/paresthesia [x] [] Intermittently in the legs. Previously on gabapentin and Lyrica but she didnot tolerate it Sensory loss [x] [] Intermittently in her hands Uhthoff's [x] [] Does not tolerate hot weather GI/ problems [x] [] Some urinary urgency that has been increases. No incontinence. Feels that shemight not fully empty her bladder at night. No bowel issues Sleep problems [] [x] Improving now that's he is no longer on steroids Constitutional sx [] [x] She is losing weight on Wejovy. No rashes. No dry eyes or dry mouth Migraine headaches [x] [] She is not havign migraines but is having head aches. She had them on andoff in morning last week that responded to tylenol No Lhermites Medical Review of Systems: As per above in HPI. A 10-point ROS is otherwise negative. Relevant Past Medical History: No past medical history on file. Infectious Mononucleosis: Not assessed Relevant Past Surgical History: No past surgical history on file. Social History: Social History Tobacco Use Smoking status: Never Smokeless tobacco: Never Tobacco comments: : Substance Use Topics Alcohol use: Not on file Occupation and work status: employed Marital status: Children: 1 Family History: History of multiple sclerosis: No History of autoimmunity: Yes Rheumatoid arthritis in mother. Current Outpatient Medications: Current Outpatient Medications: cholecalciferol (VITAMIN D3) 2,000 unit tablet, Take 1 tablet (2,000 Units total) by mouth once a day., Disp: 30 tablet, Rfl: 11 cyanocobalamin (vitamin B-12) 1,000 mcg tablet, Take 1 tablet (1,000 mcg total) by mouth once a day., Disp: 30 tablet, Rfl: 2 EPINEPHrine (EPIPEN) 0.3 mg/0.3 mL injection syringe, Inject 1 Syringe (0.3 mg total) into the outer thigh muscle as directed once for 1 dose. For possible anaphylactic reaction to COVID mRNA vaccine, Disp: 0.3 mL, Rfl: 0 levothyroxine (SYNTHROID, LEVOTHROID) 175 mcg tablet, Take 175 mcg by mouth daily. On sundays [id number] mcg plus additional 1/2 of 175 mcg , Disp: , Rfl: magnesium oxide (MAG-OX) 400 mg (241.3 mg mag) tablet, TAKE 1 TABLET BY MOUTH ONCE A DAY., Disp: 90tablet, Rfl: 2 ofatumumab (Kesimpta Pen) 20 mg/0.4 mL pen injector, Inject 0.4 mL (20 mg total) under the skin every 7 days. For weeks 0,1, and 2, skip injection on week 3, then begin once monthly dosing on week 4., Disp: 1.2 mL, Rfl: 0 ofatumumab (Kesimpta Pen) 20 mg/0.4 mL pen injector, Inject 0.4 mL (20 mg total) under the skin every 28 days., Disp: 1.2 mL, Rfl: 3 sertraline (ZOLOFT) 100 mg tablet, TAKE 1 TABLET BY MOUTH ONCE A DAY, Disp: 90 tablet, Rfl: 3 Allergies: Rebif (with albumin) [interferon beta-1a (albumin)], Adhesive tape-silicones, Betaseron [interferonbeta-1b], Copaxone [glatiramer], Latex, Morphine, Morphine in dextrose 5 %, Morphine sulfate, and Percocet [oxycodone-acetaminophen] Neurological Examination Vital signs: BP 114/73 Pulse 97 General: No acute distress, well-groomed, appears stated age. She is sitting in her car. Appears comfortable, able to hold phone and write notes during visit. EOM grossly intact and face appears symmetric. Speech fluent Head: Normocephalic, atraumatic. Mental Status: Awake, oriented to person, place, time. Normal fund of knowledge. Fluent speech and comprehension. Cranial Nerves: Fundoscopic exam without evidence of disc pallor. Visual arauz full to confrontation. PERRL without evidence of APD. EOMI without signs of intranuclear ophthalmoplegia. V1-V3 intact to light touch. Face and nasolabial folds symmetric. Hearing intact to finger rub, palate and tonguemidline. Shoulder shrug is full strength bilaterally. Motor Exam: Bulk is normal. Tone is normal. There is no evidence of tremor. Pronator drift normal. Strength (R/L), MRC grading 0-5: Upper extremities: Shoulder abduction 5-/5, elbow flexion 5/5, elbow extension 5/5, wrist extensors5-/5, finger extensors 5/5, interossei 5/+4 Lower extremities: Hip flexion -5/5, knee flexors 5-/5, knee extensors 5-/5, dorsiflexors 5-/5, plantar flexion 5/5 Sensation: Light touch normal in all extremities to pinprick. Vibration is mildly decreased at the toes (more so on the left). Vibration mildly decreased in left DIP. Romberg is positive (falls forward and to the right). Temperature intact in the upper extremities. Temperature not assessed in the lower extremities as she is wearing tights. Coordination: Bihymf-gd-[id number] shows no signs of dysmetria. Drft-xf-bgen shows no signs of incoordination. Finger-tapping is fluid and synchronized. Deep tendon reflexes: (R/L): Brachioradialis 2+/2+, Biceps 2+/2+, Triceps 2+/2+, Patellar 3+/3+ without crossed adduction, Achilles 2+/2+. Toes are flexor bilaterally in response to plantar stimulation. Jin on the left. Gait: Normal stride length, viviana, and arm swing. Able to tandem walk. Able to toe walk. Did not heel walk as she is in heels. Lhermitte's: No EDSS: 2.0 Kurtzke Functional Systems Scores (FSS): Pyramidal Functions: 1 - Abnormal signs without disability Cerebellar Functions: 0 - Normal Brainstem Functions: 0 - Normal Sensory Function: 2 - Mild decrease in touch or pain or position sense, and/or moderate decrease invibration in one or two limbs; or vibratory (c/s figure writing) decrease alone in three or four limbs Bowel and Bladder Function: 0 - Normal Visual Function: 0 - Normal Cerebral (or Mental) Functions: 0 - Normal 01/29/2018 11:00 AM 07/16/2018 11:00 AM 12/22/2021 4:00 PM 05/17/2022 2:00 PM 12/13/2022 10:00 AM 08/14/2023 9:00 AM 02/25/2025 3:00 PM Vannessa Expanded Disability Status Scale EDSS Score 2 2 9 Hole Peg Test 11.44 10.04 12.66 9.6 11.87 9.76 10.65 Timed 25-foot walk 5.9 6.17 5.87 6.8 6.76 6.47 6.06 Symbol Digit Modalities Test (SDMT) 56 65 75 58 57 64 54 Studies CSF labs: Oligoclonal Bands: IgG Index: WBC count: Protein: Serum lab workup: Vit D 06/10/2020 - 20.9 Neuroimaging: MRI brain with and without contrast and MRI cervical spine with and without contrast 11/03/2021: No evidence of disease progression. No focal parenchymal enhancement to indicate active inflammation. No acute intracranial process. No cord lesions identified. No abnormal enhancement. Status post anterior cervical discectomy and fusion with a solid arthrodesis at the C5-C6 level. New mild centraldisc protrusion at the C2-C3 level mildly impressing upon the ventral cord. Moderate spondylosis at the C4-C5 level with [id number] central canal stenosis and severe foraminal narrowing, similar to prior imaging. Broad-based disc-osteophyte complex and retrosubluxation with moderate central canal stenosis at the C6-C7 level. Severe bilateral foraminal narrowing. MRI brain and C-spine w/wo gd from January 13, 2020, reviewed the results with the patient from a fax report was done through the visit,- no changes compare to prior exams of typical brain lesion. [id number] MRI with and without contrast showed stable few chronic intramedullary lesion in the first thoracic cord with possibly new nonenhancing T2 level lesion compare to previous examination from March 2018 there is C6- C7 broad central protrusion with superimposed opening of bulging disc causing moderate to severe stenosis with subtle distortion of the ventral cord contour. There is chronic changes of anterior cervical discectomy and fusion at C5- C6. MRI brain and C-spine 11/03/2021 showed no evidence of disease progression. No focal parenchymal enhancement to indicate active inflammation. No acute intracranial process. No cord lesions identified. No abnormal enhancement. Assessment and Plan Assessment: Teresa Shepherd is a 49 y.o. right handed woman with PMH RRMS who was switched to Kesimpta in January 2024 (please see HPI for medication history) who presents to the MS clinic for follow up. Episode earlier this month is concerning for a flair as she has never had symptoms in the left leg before. She has benefited from IVMP and an oral taper but still does not feel back to her baseline. Her exam and EDSS are reassuringly stable. SDMT is significantly worse though. Her latest MRIs from September were stable based on reads. I will ask for the images to be sent over for me to review. Will assess NFL for current disease activity. Unfortunately, we cannot use gabapentin for her symptoms as she has not tolerated this medication in the past. We will continue to follow closely Plan: - continue Kesimpta injections q28 days - serum NFL and immunoglobulins - Continue vitamin B12 and vitamin D supplementation - continue Mg - Follow-up in 6 months Note About Provider Documentation: If you are the patient named in this chart and are reviewing your medical notes, please note that medical documentation is often written with abbreviations and medical terminology, and directed for other providers who may be involved in your care as well. Documentation is critical to record what has happened, what tests were ordered, and how they are interpretedwith resulting diagnoses. These notes have been made available for patient review, but not specifically written for the patient. Important health information is always given to my patients and clinicinstructions. Please review your After Visit Summary (AVS) and our clinic staff if you have questions. documented in this encounter Plan of Treatment Upcoming Encounters Date Type Department Care Team (Late st Contact Info) Description 09/10/2025 3:00 PM EDT Office Visit [facility] [address] [place] [id number] Art Critic: Donna Monte documented as of this encounter Results * Due to [place] state law, this organization might not be sharing negative HIV tests. * Immunoglobulins Panel (IgG, IgA, IgM) (02/25/2025 4:35 PM EST) Immunoglobulin A 207 47 - 310 mg/dL 02/26/2025 8:11 AM EST [facility] IgG, Serum 773 600 - 1640 mg/dL 02/26/2025 8:11 AM EST [facility] Immunoglobulin M 77 50 - 300 mg/dL 02/26/2025 8:11 AM EST [facility] Blood Structure of peripheral vein / Unknown Venipuncture / Unknown 02/25/2025 4:35 PM EST 02/25/2025 4:46 PM EST [facility] JOHNNY LARSON - 02/26/2025 8:11 AM EST [facility] Received Date: Geraldine Powell MD LAB BLOOD ORDERABLES Final Re sult [facility] [address] [facility] [address], [place] [address], [facility] [address] [facility] [address], [place] [address], * Neurofilament Light Chain, Plasma (02/25/2025 4:35 PM EST) Neurofilament Light Chain, Plasma 10.9 < or = 22.4 pg/mL 02/28/2025 11:27 AM EST [facility] Comment: As of 2024, [facility] [employer] has updated the Neurofilament Light Chain (NfL) methodology. If patient is undergoing serial monitoring of NfL levels, rebaselining by requesting that this sample also be run on the previous assay method for comparison purposes is recommended. Rebaseline of this sample at no charge will be available until 05/30/2025 and the rebaseline result will be added to this report. Contact [facility] [employer] [facility] at to request this service. For [facility] patients, call [phone]. ADDITIONAL INFORMATION The testing method is a chemiluminescent enzyme immunoassay for the quantitative determination of NfL in plasma manufactured by [employer] and performed on the ividence analyzer. Values obtained with different methods may be different and cannot be used interchangeably. This test was developed and its performance characteristics determined by [facility] in a manner consistent with CLIA requirements. It has not been cleared by the [place] Food and Drug Administration. Test Performed by: [facility] [address] [place] [address] Import/Export Specialist: Fili Huitron Ph.D.; CLIA# [id number] Blood Structure of peripheral vein / Unknown Venipuncture / Unknown 02/25/2025 4:35 PM EST 02/25/2025 4:46 PM EST Geraldine Powell MD LAB BLOOD ORDERABLES Final Re sult [facility] [address] [place] [address], documented in this encounter Visit Diagnoses Diagnosis Multiple sclerosis- Primary documented in this encounter Care Teams Tenoner Operator Relationship Specialty Start Date End Date Helen Hines [address] [place] [address] PCP - General Internal Medicine 06/25/21 documented as of this encounter
--- NOTE | ~2025-03-03 | XR_ITS ---
CLINICAL HISTORY: arm pain 3 view right shoulder Comparison: None provided Findings: Bones intact. No dislocations. [id number] degenerative changes especially in the acromioclavicular joint. No significant degenerative spurring. No erosions. No radiopaque foreign body. Nonspecific 13 mm calcific density is identified in the soft tissues of the proximal humerus. IMPRESSION: No acute fracture or dislocation. This document has been electronically signed by: Yasmeen Barth DO on 03/03/2025 17:57:08
--- NOTE | 2025-03-03 11:43 | ED.GENADULT ---
HPI - General Adult General Chief complaint: Extremity Injury, Upper Stated complaint: sent from , cant move r arm, sharp pain Time Seen by Provider: 03/03/25 14:19 Source: patient Mode of arrival: ambulatory Limitations: no limitations History of Present Illness ED Provider: Dr. Rivas HPI narrative: 49-year-old female presented hospital today for evaluation of sudden onset of right humeral pain. Patient stated that this has been going on since Monday. Patient stated that it feels like she has a punch a flu shot taken her right arm. She has difficulty moving her right arm due to the pain. She is having pain in the anterior humeral. No trauma. Went to urgent care had a humeral x-ray which showed calcification in the proximal humerus no signs of fracture. Difficult to patient to extend her elbow. Related Data Home Medications ?Medication ?Instructions ?Recorded ?Confirmed levothyroxine 175 mcg tablet 175 mcg PO DAILY 07/09/20 09/03/24 sertraline 100 mg tablet 100 mg PO DAILY 07/09/20 09/03/24 ofatumumab 20 mg/0.4 mL mg subcut 04/17/24 09/03/24 subcutaneous pen injector (Kesimpta Pen) magnesium PO 09/03/24 09/03/24 Previous Rx's ?Medication ?Instructions ?Recorded albuterol sulfate 90 mcg/actuation 1 inh inhalation QID PRN shortness 08/05/22 aerosol inhaler (ProAir HFA) of breath or wheezing #8.5 grams syringe with needle 3 mL 25 gauge #25 ea 04/04/23 x 1 (BD Luer-Krystal Syringe) valacyclovir 1 gram tablet 1,000 mg PO DIRECTED #8 tabs 04/17/24 estradiol 0.01% (0.1 mg/gram) 1 g vaginal 2XW #42.5 grams 07/05/24 vaginal cream baclofen 10 mg tablet 10 mg PO BID #30 tabs 09/03/24 Wegovy 1 mg/0.5 mL subcutaneous 1 mg (0.5 mL) subcut QWEEK #6 mL 09/10/24 pen injector (semaglutide (weight loss)) cyanocobalamin (vitamin B-12) 1,000 mcg PO DAILY #90 tabs 02/20/25 1,000 mcg tablet cyclobenzaprine 5 mg tablet 5 mg PO TID PRN muscle spasm #14 03/03/25 tabs oxycodone 5 mg tablet 5 mg PO TID PRN pain #14 tabs 03/03/25 prednisone 20 mg tablet 40 mg (2 x 20 mg) PO DAILY 5 days 03/03/25 #10 tabs Allergies Allergy/AdvReac Type Severity Reaction Status Date / Time latex (LATEX) Allergy Intermediate HIVES Verified 10/07/24 16:11 morphine (MORPHINE) Allergy Intermediate HIVES Verified 10/07/24 16:11 acetaminophen (From PERCOCET) Allergy Unknown RASH Verified 10/07/24 16:11 Interferons (INTERFERONS) Allergy Unknown ANAPHYLAXIS Verified 10/07/24 16:11 oxycodone (From PERCOCET) Allergy Unknown RASH Verified 10/07/24 16:11 band aids Allergy Unknown Uncoded 03/03/25 11:49 Review of Systems Review of Systems: Pertinent review of systems as mentioned in HPI. All other system otherwise negative. [facility] Past Medical History [facility] Narrative: Medical history as mentioned in HPI Medical History (Updated 03/03/25 @ 20:58 by Carrie Rivas DO) Right hip pain Colonoscopy refused Vitamin B12 deficiency Bunion of great toe Endometrial polyp Dysmenorrhea Spinal stenosis Precancerous lesion Annual physical exam Mammogram normal Normal Pap smear History of atypical skin mole Multiple sclerosis Eczema Psoriasis Papillary thyroid carcinoma Asthma Arthritis Surgical History Hx of hysterectomy H/O left knee surgery H/O spinal fusion H/O total thyroidectomy History of section Family History Family History Father Hodgkins disease Heart disease Mother Degenerative disk disease Skin cancer Social History Social History Housing: House Alcohol intake: current Alcohol intake frequency: holidays/special occasions only Patient Tobacco Use Status: Never used Tobacco e-Cigarette/Vaping Use: Never Used service: No Current occupational status: employed Cognitive needs: No Hearing needs: No Vision needs: Yes Physical Exam ED Exam Exam: General: Patient appears uncomfortable. Head: Normacephalic, atraumatic ENT: oral mucosa moist, neck supple, no tracheal deviation Extremities: Pain on right shoulder appreciated on exam, CMS intact, pain on extension of the right elbow. No erythema. Neurological: Awake and alert, no facial droop noted Skin: Warm and dry Psychiatric: Appropriate mood and thoughts Vital Signs: Vital Signs - 24 hr 03/03/25 11:47 03/03/25 18:11 03/03/25 18:14 Temperature 98 F Pulse Rate 82 88 Respiratory Rate 18 16 16 Blood Pressure 101/69 Pulse Oximetry 98 98 Oxygen Delivery Method Room Air Room Air 03/03/25 21:29 Temperature 0 F L Pulse Rate 0 L Respiratory Rate 20 Blood Pressure 00/00 L Pulse Oximetry Oxygen Delivery Method BMI result Body Mass Index 27.5 Course Course Course Narrative: This is a rapid medical exam performed by Bonifacio Torrez NP: Additional HPI, ROS, PE not included below will be deferred to primary provider. Patient is a 49y/o F presenting to the ED with complaint of right upper arm pain since Monday morning. Denies any traumatic injury. Went to urgent care and was referred to the ED due to a nonspecific calcification found on xray. Plan: labs Medications Administered Discontinued Medications Generic Name Dose Route Start Last Admin Trade Name Shirley PRN Reason Stop Dose Admin Diazepam 5 mg 03/03/25 17:59 03/03/25 18:09 Diazepam 10 Mg/2 Ml Cartridge IVPUSH 03/03/25 18:00 5 mg STAT STA Administration Diphenhydramine HCl 25 mg 03/03/25 19:31 03/03/25 20:57 Diphenhydramine Hcl 25 Mg Capsule PO 03/03/25 19:32 25 mg ONCE ONE Administration Hydromorphone HCl 1 mg 03/03/25 16:31 03/03/25 16:58 Hydromorphone Hcl 1 Mg/Ml Syringe IVPUSH 03/03/25 16:32 1 mg ONCE ONE Administration Protocol Sodium Chloride 1,000 mls @ 999 mls/hr 03/03/25 16:45 03/03/25 18:11 Ns IV 03/03/25 17:45 Infused .Q1H1M SHERLYN Infusion Oxycodone HCl 5 mg 03/03/25 19:30 03/03/25 20:57 Oxycodone Hcl Immed Release 5 Mg Tablet PO 03/03/25 19:31 5 mg ONCE ONE Administration Prednisone 40 mg 03/03/25 19:30 03/03/25 20:57 Prednisone 20 Mg Tablet PO 03/03/25 19:31 40 mg ONCE ONE Administration Medical Decision Making Medical Decision Making [facility] Narrative: This is a 49-year-old female history of MS presented hospital today for evaluation of right arm pain that started on Monday. Suspect this is musculoskeletal in nature. Patient may have a right shoulder joint effusion. We will obtain shoulder x-ray to rule out shoulder dislocation. Patient does have exquisite tenderness on moving her right upper extremity. No sign of ischemic limb. She does have pulses distally. Denies any trauma. Humeral x-ray is negative for fracture. Suspect this is likely joint base pain. IV Dilaudid to be given her pain. Shoulder x-ray will be obtained. No fever no tachycardic no signs of leukocytosis. Low suspicion for septic arthritis No leukocytosis on patient's lab work. ESR is normal. Chemistries unremarkable. No sign of fracture or dislocation on patient's x-ray. Patient has reproducible tenderness on the biceps area. On the anterior bicipital groove on palpation. I did perform a bedside ultrasound I did not appreciate any signs of shoulder effusion. Patient is still complaining of pain IV Valium was given with the some affect however patient is still complaining of pain at this time. I have low suspicion for septic arthritis for the patient. This may be a rotator cuff injury as well. However I suspect this is likely biceps tendonitis. Perhaps this may be muscle injury from fdc steroid use for her MS We will plan to discharge patient with a Flexeril, p.o. oxycodone take as needed for pain control. We will start her on a burst dose of prednisone. Follow up with the orthopedic will be provided the patient for further assessment. Differential Diagnosis Differential Diagnoses: The differential diagnosis associated with the presentation includes Shoulder effusion, shoulder pain, tendonitis bicep, shoulder dislocation Lab Data [facility] Lab Attestation statement: I reviewed the patient's lab results. 03/03/25 11:58 03/03/25 11:58 Labs: Lab Results 03/03/25 Range/Units 11:58 WBC 7.2 (4.8-10.8) X10*3/uL RBC 4.21 (4.20-5.50) X10*6/uL Hgb 13.6 (12.0-16.0) g/dl Hct 40.5 (37.0-47.0) % MCV 96.2 (80.0-98.0) fL MCH 32.3 (27.0-33.0) pg MCHC 33.6 (31.0-35.0) g/dl RDW 12.8 (11.0-16.0) % Plt Count 371 (160-400) X10*3/uL MPV 9.5 (9.4-12.3) fL Immature Gran % (Auto) 0.1 (0.0-0.4) % Neut % (Auto) 78.2 H (45-73) % Lymph % (Auto) 11.7 L (20-40) % [place] % (Auto) 7.5 (2-11) % Eos % (Auto) 1.9 (0-4) % Baso % (Auto) 0.6 (0-2) % Lymph # (Auto) 0.9 L (1.2-4.9) X10*3/uL [place] # (Auto) 0.5 (0.1-1.2) X10*3/uL Eos # (Auto) 0.1 (0.0-0.4) X10*3/uL Baso # (Auto) 0.0 (0.0-0.2) X10*3/uL Abs Immat Gran (auto) 0.01 (0.00-0.03) X10*3/uL Absolute Neuts (auto) 5.7 (2.0-8.3) x10*3/uL Absolute Nucleated RBC 0.000 (0.0-0.012) X10*3/uL Nucleated RBC % (auto) 0.0 (0.0-0.2) /100WBC ESR 14 (0-20) MM/HR Sodium 140 (135-145) mmol/L Potassium 4.1 (3.3-5.1) mmol/L Chloride 107 (96-108) mmol/L Carbon Dioxide 29 (22-29) mmol/L Anion Gap 8 L (12-20) BUN 12 (9-16) mg/dL Creatinine 0.54 (0.5-1.4) mg/dL Estim Creat Clear Calc 121.6 Estimated GFR > 60 Random Glucose 92 (60-115) mg/dL Calcium 9.1 (8.4-10.2) mg/dL Total Bilirubin 0.5 (0.0-1.0) mg/dL AST 21 (5-31) U/L ALT 19 (0-31) U/L Alkaline Phosphatase 79 (39-117) U/L C-Reactive Protein 0.18 (< or = 0.50) mg/dL Total Protein 6.8 (6.5-8.0) g/dL Albumin 4.3 (3.5-5.0) g/dL Independent Interpretation I performed an independent interpretation of an: Plain X-Ray Radiology Impression Discussion of test interpretation with radiology: I have reviewed the radiologist's reading. Discharge Plan Discharge Clinical Impression: Acute pain of right shoulder Patient Disposition: Home, Self-Care Additional Instructions: Follow up with orthopedic team. This may be tendonitis or rotator cuff injury, It may be bicep tendonitis with your location of pain Prescriptions: New cyclobenzaprine 5 mg tablet 5 mg PO TID PRN (Reason: muscle spasm) Qty: 14 0RF oxycodone 5 mg tablet 5 mg PO TID PRN (Reason: pain) Qty: 14 0RF Rx Instructions: Partial Fill upon patient request. prednisone 20 mg tablet 40 mg PO DAILY 5 Days Qty: 10 0RF No Action (DME) BD Luer-Krystal Syringe 3 mL 25 gauge x 1 syringe See Rx Instructions .Route Qty: 25 0RF Rx Instructions: Use to inject vitamin B 12 weekly Wegovy 1 mg/0.5 mL pen injector 1 mg subcut QWEEK Qty: 6 3RF cyanocobalamin (vitamin B-12) 1,000 mcg tablet 1,000 mcg PO DAILY Qty: 90 2RF sertraline 100 mg tablet 100 mg PO DAILY levothyroxine 175 mcg tablet 175 mcg PO DAILY albuterol sulfate [ProAir HFA] 90 mcg/actuation HFA aerosol inhaler 1 inh inhalation QID PRN (Reason: shortness of breath or wheezing) Qty: 8.5 4RF magnesium PO baclofen 10 mg tablet 10 mg PO BID Qty: 30 0RF Kesimpta Pen 20 mg/0.4 mL pen injector subcut valacyclovir 1 gram tablet 1,000 mg PO DIRECTED Qty: 8 0RF Rx Instructions: Take 2 pills by mouth twice a day x 1 day. Total of 4 pills. I will send extra pills for break outs in future. estradiol 0.01 % (0.1 mg/gram) cream 1 g vaginal 2XW Qty: 42.5 3RF Referrals: [facility] Orthopedic Surgeons [Provider Group] Referral Note: Tendonitis v.s muscle strain Clinical Impression: Acute pain of right shoulder Interventions: ED Discharge Assessment Last Done: 03/03/25 21:29 Discharge Date/Time: 03/03/25 21:30 Print Language: Icelandic
[2025-03-03 11:47] VITALS: BP 101/69; PULSE 82; RESP 18; TEMP 36.6; O2SAT 98; BMI 27.5
[2025-03-03 12:04] LABS: MANUAL DIFF FLAG NO
[2025-03-03 12:12] LABS: Hematocrit 40.5 % (37.0-47.0); Hemoglobin 13.6 g/dl (12.0-16.0); Imm Gran Abs Auto 0.01 X10*3/uL (0.00-0.03); Imm Gran Pct Auto 0.1 % (0.0-0.4); Lymphocytes Absolute Auto 0.9 X10*3/uL (1.2-4.9); Mean Corpuscular HGB Conc 33.6 g/dl (31.0-35.0); Mean Corpuscular Hemoglobin 32.3 pg (27.0-33.0); Mean Corpuscular Volume 96.2 fL (80.0-98.0); NRBC Abs Auto 0.000 X10*3/uL (0.0-0.012); NRBC Pct Auto 0.0 /100WBC (0.0-0.2); Platelet Count 371 X10*3/uL (160-400); Red Blood Count 4.21 X10*6/uL (4.20-5.50); White Blood Count 7.2 X10*3/uL (4.8-10.8)
[2025-03-03 12:21] LABS: Alanine Aminotransferase 19 U/L (0-31); Albumin Level 4.3 g/dL (3.5-5.0); Alkaline Phosphatase 79 U/L (39-117); Anion Gap 8 (12-20); Aspartate Amino Transferase 21 U/L (5-31); Blood Urea Nitrogen 12 mg/dL (9-16); Calcium 9.1 mg/dL (8.4-10.2); Carbon Dioxide 29 mmol/L (22-29); Chloride 107 mmol/L (96-108); Creatinine Clr Calc Pharmacy 121.6; Estimated Glomerular Filt Rate > 60; Potassium 4.1 mmol/L (3.3-5.1); Sodium 140 mmol/L (135-145); Total Protein 6.8 g/dL (6.5-8.0)
[2025-03-03 12:56] LABS: Erythrocyte Sedimentation Rate 14 MM/HR (0-20)
--- OUTSIDE RECORDS SUMMARY | 2025-03-03 17:58 | XMS_ITS | Encounter Summary ---
Author Organization [facility] Address [address] [place] [address] Care Team Providers Care Ice Puller Name Role Phone Helen Hines Primary Care Provider [phone] Encounter Details Date Type Department Care Team (Late st Contact Info) Description 09/23/2021 Telephone [facility] Central Scheduling Department [address] [place] [address] Telephone Intake, Staff Social History Tobacco Use [...] AM EDT DOCUMENTATION PURPOSE ONLY lvm AT [phone] TO SEE ABOUT PT authorization for MRI to go to [facility] to get it done there documented in this encounter Plan of Treatment Upcoming Encounters Date Type Department Care Team (Late st Contact Info) Description 09/10/2025 3:00 PM EDT Office Visit [facility] [address] [place] [address] B And B Gang Worker: Donna Monte documented as of this encounter Visit Diagnoses Not on filedocumented in this encounter Care Teams Ice Puller Relationship Specialty Start Date End Date Helen Hines [address] [place] [address] PCP - General Internal Medicine 06/25/21 documented as of this encounter
--- OUTSIDE RECORDS SUMMARY | 2025-03-03 17:58 | XMS_ITS | Encounter Summary ---
Author Organization [facility] Address [address] [place] [address] Care Team Providers Care Thermograph Operator Name Role Phone Helen Hines Primary Care Provider [phone] Encounter Details Date Type Department Care Team (Late st Contact Info) Description 01/23/2020 Orders Only [facility] Interventional Radiology [address] [place], [place] [phone] Niurka Lee MD [address] [place] [address] Social History Tobacco Use Types Packs/Day Years [...] Description 09/10/2025 3:00 PM EDT Office Visit [facility] Sclerosis Clinic [address] [place] [address] Pen Tester: Donna Monte documented as of this encounter Visit Diagnoses Not on filedocumented in this encounter Care Teams Thermograph Operator Relationship Specialty Start Date End Date Helen Hines [address] [place] [address] PCP - General Internal Medicine 06/25/21 documented as of this encounter
--- OUTSIDE RECORDS SUMMARY | 2025-03-03 17:58 | XMS_ITS | Encounter Summary ---
Author Organization [facility] Address [address] [place] [address] Care Team Providers Care Housing Court Judge Name Role Phone Helen Hines Primary Care Provider Encounter Details Date Type Department Care Team (Late Contact Info) Description 02/07/2025 myChart Message [facility] [address] [place] [address] Entry Level Account Executive: Geraldine Fall MD [address] [place] [phone] IV steroids Social History Tobacco Use Types Packs/Day Years [...] Description 09/10/2025 3:00 PM EDT Office Visit [facility] [address] [place] [address] Entry Level Account Executive: Donna Monte documented as of this encounter Visit Diagnoses Not on filedocumented in this encounter Care Teams Housing Court Judge Relationship Specialty Start Date End Date Helen Hines [address] [facility] [place] [address] PCP - General Internal Medicine 06/25/21 documented as of this encounter
--- OUTSIDE RECORDS SUMMARY | 2025-03-03 17:58 | XMS_ITS | Clinical Summary ---
Author Organization [facility] Address [address] [place] [address] Phone Care Team Providers Care Relief Manager Name Role Phone Helen Hines MD Primary Care Provider [phone] Allergies Active Allergy Reactions Criticality Noted Date [...] 0.3 mg into the muscle as needed. 12/23/19 22 Active WEGOVY 0.5 mg/0.5 mL subcutaneous injection Inject 0.5 mg under the skin once a week. 02/24/20 24 Active KESIMPTA PEN 20 mg/0.4 mL PnIj 03/05/20 24 Active SYNTHROID 175 mcg tabletIndications: Postoperative hypothyroidism TAKE 1 TABLET ORALLY ONCE A DAY SIX DAYS A WEEK, skip the 7th day, or as directed 78 tablet 1 02/04/20 25 Active SYNTHROID 175 mcg tabletIndications: Postoperative hypothyroidism 1 tablet orally six days/week, 1/2 tablet on the 7th day, or as directed 84 tablet 11/01/19 25 025 Discontinued Active Problems Problem Noted Date Diagnosed Date [...] lobe, encapsulated w/o capsular invasion or ETE, 1/ contralateral perithyroidal LN +ve, given 152.4 mCI [...] Encounters Date Type Department Care Team Description 02/10/2025 Orders Only [facility] [address] [place] [address] [place] [address] Lizbet Oscar Postoperative hypothyroidism 02/03/2025 Orders Only [facility] Endocr[facility] [place] [address] [place] [address] Kristi Roy MD Postoperative hypothyroidism (Primary Dx) 01/28/2025 Refill [facility] [address] [place] [address] Kristi Roy MD Medication Refill from Last [...] 04/10/2025 4:00 PM EST Telemedicine [facility] [address] [place] [address] Kristi Roy MD [address] [place] [phone] [email or web address] Maintenance Due Date Last Done Comments [...] - season) 2024 02/19/2021, 06/29/2020 TSH LEVEL 02/01/2026 02/01/2025, 04/0 07/2024, 08/05/2023, Additional history exists HEPATITIS C SCREENING Completed [...] Name Priority Date/Time Associated Diagnosis Comments TSH WITH REFLEX Routine 02/01/2025 12:43 PM EDT Postoperative hypothyroidism OUTSIDE HEPATITIS C VIRUS SCREENING Routine 12/13/2022 from Last 3 Months or Most Recently Relevant to Health Maintenance Results * Thyroid Stimulating Hormone (TSH), with Reflex (02/01/2025 12:43 PM EDT) Blood (Blood) Kristi Roy MD LAB BLOOD BKR ORDERABL ES Final Result [facility] [address] [place], [place] [id number] * Outside Hepatitis C Virus Screening (12/13/2022) Hepatitis C Screening - External Neg Historical Provider LAB BLOOD ORDERABLES Tila l Result from Last 3 Months or Most Recently Relevant to Health Maintenance Insurance [facility] Care Teams Relief Manager Relationship Specialty Start Date End Date Helen Hines MD [address] [facility] [place] [address] PCP - General Internal Medicine 03/28/23 Additional Source Comments The information contained in this document represents components of the legal health record. It is not the complete legal health record.[facility]
--- OUTSIDE RECORDS SUMMARY | 2025-03-03 17:58 | XMS_ITS | Encounter Summary ---
Author Organization [facility] Address [address] [place] [address] Care Team Providers Care Maternity Nurse Name Role Phone Helen Hines Primary Care Provider [phone] Encounter Details Date Type Department Care Team (Late st Contact Info) Description 02/05/2025 Orders Only [facility] [address] [place] [address] Kae Muhammda Restless legs syndrome Social History Tobacco Use Types Packs/Day Years [...] Description 09/10/2025 3:00 PM EDT Office Visit [facility] S[facility] [address] [place] [phone] Buff Wheel Fabricator: Donna Monte documented as of this encounter Visit Diagnoses Diagnosis Restless legs syndrome Restless legs syndrome (RLS) documented in this encounter Care Teams Maternity Nurse Relationship Specialty Start Date End Date Helen Hines [address] [facility] [place] [address] PCP - General Internal Medicine 06/25/21 documented as of this encounter
--- OUTSIDE RECORDS SUMMARY | 2025-03-03 17:58 | XMS_ITS | Encounter Summary ---
Author Organization [facility] Address [address] [phone] Care Team Providers Care Parking Lot Attendant Name Role Phone Helen Hines Primary Care Provider [phone] Encounter Details Date Type Department Care Team (Late Contact Info) Description 01/30/2025 myChart Message [facility] [address] [place] [address] Computer Forensics Technician: Geraldine Fall MD [address] [place] [phone] Symptom Social History Tobacco Use Types Packs/Day [...] Description 09/10/2025 3:00 PM EDT Office Visit [facility] [address] [place] [address] Computer Forensics Technician: Donna Monte documented as of this encounter Visit Diagnoses Not on filedocumented in this encounter Care Teams Parking Lot Attendant Relationship Specialty Start Date End Date Helen Hines [address] [facility] [place] [address] PCP - General Internal Medicine 06/25/21 documented as of this encounter
--- OUTSIDE RECORDS SUMMARY | 2025-03-03 17:58 | XMS_ITS | Encounter Summary ---
Author Organization [facility] Address [address] [place] [address] Care Team Providers Care Internal Consultant Name Role Phone Helen Hines Primary Care Provider [phone] Encounter Details Date Type Department Care Team (Late st Contact Info) Description 10/11/2021 Telephone [facility] [address] [place] [address] Telephone Intake, Staff Social History Tobacco [...] EDT Called patient, approval on 09/24/21 for [facility] to return our call , did she have the scans done . Will wait for pt to return call , new auth needed, needs 3T machine * Telephone Encounter - Anne Mclean - 10/11/2021 9:02 AM EDT ----- Message from Cherry Delaney LPN sent at 10/07/2021 12:55 PM EDT ----- Sh needs her MRI done at [facility] documented in this encounter Plan of Treatment Upcoming Encounters Date Type Department Care Team (Late st Contact Info) Description 09/10/2025 3:00 PM EDT Office Visit [facility] Sclerosis [facility] [address] [place] [phone] Microsoft Developer: Donna Monte documented as of this encounter Visit Diagnoses Not on filedocumented in this encounter Care Teams Internal Consultant Relationship Specialty Start Date End Date Helen Hines [address] [place] [address] PCP - General Internal Medicine 06/25/21 documented as of this encounter
--- OUTSIDE RECORDS SUMMARY | 2025-03-03 17:58 | XMS_ITS | Encounter Summary ---
Author Organization [facility] Address [address] [place] [address] Phone Care Team Providers Care Primary Products Inspectors Name Role Phone Helen Hines MD Primary Care Provider [phone] Encounter Details Date Type Department Care Team (Late st Contact Info) Description 02/10/2025 Orders Only [facility] [address] [place], [place] [phone] Lizbet Oscar [address] [place], [place] [phone] [email or web address] Postoperative hypothyroidism Social History Tobacco Use Types Packs/Day Years [...] on file documented as of this encounter Plan of Treatment Upcoming Encounters Date Type Department Care Team (Late st Contact Info) Description 04/10/2025 4:00 PM EST Telemedicine [facility] [address] [place] [place], [place] [phone] Kristi Roy MD [address] [place] [phone] [email or web address] documented as of this encounter Procedures Procedure Name Priority Date/Time Associated Diagnosis Comments TSH WITH REFLEX Routine 02/01/2025 12:43 PM EDT Postoperative hypothyroidism documented in this encounter Results * Thyroid Stimulating Hormone (TSH), with Reflex (02/01/2025 12:43 PM EDT) Blood (Blood) us Kristi Roy MD LAB BLOOD BKR ORDERABL ES Final Result [address] [address] documented in this encounter Visit Diagnoses Diagnosis Postoperative hypothyroidism Postsurgical hypothyroidism documented in this encounter Care Teams Primary Products Inspectors Relationship Specialty Start Date End Date Helen Hines MD [facility] [place] [address] PCP - General Internal Medicine 03/28/23 documented as of this encounter Additional Source Comments The information contained in this document represents components of the legal health record. It is not the complete legal health record.[facility]
--- OUTSIDE RECORDS SUMMARY | 2025-03-03 17:58 | XMS_ITS | Encounter Summary ---
Author Organization [facility] Address [address] [place] [address] Care Team Providers Care Welfare Analyst Name Role Phone Helen Hines Primary Care Provider [phone] Encounter Details Date Type Department Care Team (Late st Contact Info) Description 02/10/2025 Results Follow-Up [facility] [address] [place] [address] Form Raiser: Geralidne Fall MD [address] [place] [address] Social History Tobacco Use Types Packs/Day Years [...] encounter Miscellaneous Notes * Telephone Encounter - Fermín Schwartz LPN - 02/10/2025 11:38 AM EST Patient aware, Yaneth HERBERT spoke with patient and set up * Telephone Encounter - Fermín Schwartz LPN - 02/10/2025 11:38 AM EST Orders faxed to [facility] in [facility] documented in this encounter Plan of Treatment Upcoming Encounters Date Type Department Care Team (Late st Contact Info) Description 09/10/2025 3:00 PM EDT Office Visit [facility] [address] [place] [address] Form Raiser: Donna Monte documented as of this encounter Visit Diagnoses Not on filedocumented in this encounter Care Teams Welfare Analyst Relationship Specialty Start Date End Date Helen Hines [address] [place] [address] PCP - General Internal Medicine 06/25/21 documented as of this encounter
--- OUTSIDE RECORDS SUMMARY | 2025-03-03 17:58 | XMS_ITS | Clinical Summary ---
Author Organization [facility] Address [address] [place] [address] Care Team Providers Care Energy Project Manager Name Role Phone Helen Hines Primary Care Provider [phone] Allergies Active Allergy Reactions Criticality Noted Date [...] 4. 1.2 mL 01/16/2024 10:21 AM EDT 01/04/20 24 Active EPINEPHrine (EPIPEN) 0.3 mg/0.3 mL injection syringe Inject 1 Syringe (0.3 mg total) into the outer thigh muscle as directed once for 1 dose. For possible anaphylactic reaction to COVID mRNA vaccine 0.3 mL 01/04/20 24 Active sertraline (ZOLOFT) 100 mg tablet TAKE 1 TABLET BY MOUTH ONCE A DAY 90 tablet 3 04/25/19 25 Active cholecalcifero l (VITAMIN D3) 2,000 unit tablet Take 1 tablet (2,000 Units total) by mouth once a day. 30 tablet 11 08/22/19 25 026 Active cyanocobalamin (vitamin B-12) 1,000 mcg tablet Take 1 tablet (1,000 mcg total) by mouth once a day. 30 tablet 2 08/22/19 25 Active magnesium oxide (MAG-OX) 400 mg (241.3 mg mag) tablet TAKE 1 TABLET BY MOUTH ONCE A DAY. 90 tablet 2 11/26/19 25 Active ofatumumab (Kesimpta Pen) 20 mg/0.4 mL pen injectorIndica tions:Multiple sclerosis Inject 0.4 mL (20 mg total) under the skin every 28 days. 1.2 mL 3 02/19/2025 12:39 AM EST 01/17/20 25 Active gabapentin (NEURONTIN) 100 mg capsule Take 1 capsule (100 mg total) by mouth every night. 30 capsule 2 02/05/20 25 025 Discontinu ed(Side Effects) predniSONE (DELTASONE) 10 mg tablet Take 5 tablets (50 mg total) by mouth once a day for 1 day, THEN 4 tablets (40 mg total) once a day for 1 day, THEN 3 tablets (30 mg total) once a day for 1 day, THEN 2 tablets (20 mg total) once a day for 1 day, THEN 1 tablet (10 mg total) once a day for 1 day. 15 tablet 02/08/20 025 Active Problems Problem Noted Date Diagnosed Date Vitamin D deficiency 01/29/2018 Chronic fatigue 08/11/2014 Vitamin B12 deficiency 06/13/2014 Depression 06/09/2014 Neurogenic bladder 07/17/2013 Restless legs syndrome 07/17/2013 Multiple sclerosis 02/13/2012 Encounters Date Type Department Care Team Description 02/25/2025 3:00 PM EST Office Visit [facility] [address] [place] [address] Figure Clerk: Susana Wiley, DO Multiple sclerosis (Primary Dx) 02/10/2025 Results Follow-Up [facility] [address] [place] [address] Figure Clerk: Geraldine Fall MD 02/07/2025 Orders Only [facility] [address] [place] [address] Figure Clerk: Geraldine Fall MD 02/07/2025 myChart Message [facility] [address] [place] [address] Figure Clerk: Geraldine Fall MD IV steroids 02/07/2025 Telephone [facility] [address] [place] [address] Figure Clerk: Donna Monte Telephone Intake, Staff PAC Clinical Questions 02/05/2025 Orders Only [facility] [address] [place] [address] Kae Muhammad Restless legs syndrome 02/05/2025 Orders Only [facility] [address] [place] [address] Figure Clerk: Geraldine Fall MD Vitamin B12 deficiency (Primary Dx) 02/05/2025 Telephone [facility] [address] [place] [address] Figure Clerk: Cherry Rivas LPN 02/04/2025 Orders Only [facility] [address] [place] [address] Figure Clerk: Yovani No MD PhD 02/04/2025 Orders Only [facility] [address] [place] [address] Figure Clerk: Susana Wiley, DO Multiple sclerosis (Primary Dx); Restless legs syndrome 01/30/2025 Orders Only [facility] [address] [place] [address] Figure Clerk: Yaneth Walton LPN Urinary tract infection without hematuria, site unspecified (Primary Dx) 01/30/2025 Telephone [facility] [address] [place] [address] Figure Clerk: Donna Monte Telephone Intake, Staff PAC Clinical Questions 01/30/2025 myChart Message [facility] [address] [address] Figure Clerk: Geraldine Fall MD Symptom 01/16/2025 Refill [facility] [address] [place] [address] Figure Clerk: Geraldine Fall MD Multiple sclerosis from Last 3 Months Social History Tobacco [...] Pulse 97 02/25/2025 3:20 PM EST Temperature 36.5 C (97.7 F) 01/27/2023 11:07 [...] Office Visit [facility] [address] [address] Figure Clerk: Donna Monte Health Maintenance Due Date Last [...] 04/03/2024 Zoster Vaccines (1 of 2) 2024 Influenza Vaccine (#1) 2024 01/22/2020 HIV Screening Completed 08/14/2023, 12/02, 02/13/2012 Hepatitis C Screening Completed 08/14/2023 , 12/13/2022, 02/13/2012 COVID-19 Vaccine Completed 12/25/2024, 09/2023, 02/19/2021, Additional history exists Procedures * Due to [place] state law, this organization might not be sharing negative HIV tests. Procedure Name Priority Date/Time Associated Diagnosis Comments IMMUNOGLOBULINS PANEL (IGG, IGA, IGM) Routine 02/25/2025 4:35 PM EST Multiple sclerosis NEUROFILAMENT LIGHT [id number] Routine 02/25/2025 4:35 PM EST Multiple sclerosis IRON, TIBC AND FERRITIN PANEL (5616) Routine 02/05/2025 3:37 PM EST VITAMIN B12 Routine 02/05/2025 3:37 PM EST Vitamin B12 deficiency REFLEXIVE URINE CULTURE (SBCULI) Routine 02/04/2025 11:38 AM EST URINALYSIS W/REFLEX TO MICROSCOPIC & CULTURE Routine 02/04/2025 11:38 AM EST URINE CULTURE, ROUTINE Routine 11/04/202 5 11:38 AM EST HEPATITIS PANEL, ACUTE Routine 4 9:50 AM EDT Multiple sclerosis Vitamin B12 deficiency Vitamin D deficiency Restless legs syndrome Chronic fatigue CD4 COUNTS Routine 02/13/2012 1:06 PM EST from Last 3 Months or Most Recently Relevant to Health Maintenance Results * Due to [place] state law, this organization might not be sharing negative HIV tests. * Neurofilament Light Chain, Plasma (02/25/2025 4:35 PM EST) Neurofilament Light Chain, Plasma 10.9 < or = 22.4 pg/mL 02/28/2025 11:27 AM EST [facility] Comment: As of 2024, [facility] has updated the Neurofilament Light Chain (NfL) methodology. If patient is undergoing serial monitoring of NfL levels, rebaselining by requesting that this sample also be run on the previous assay method for comparison purposes is recommended. Rebaseline of this sample at no charge will be available until 05/30/2025 and the rebaseline result will be added to this report. Contact [facility] at to request this service. For [place] patients, call [phone]. ADDITIONAL INFORMATION The testing method is a chemiluminescent enzyme immunoassay for the quantitative determination of NfL in plasma manufactured by [employer] and performed on the Samba TV analyzer. Values obtained with different methods may be different and cannot be used interchangeably. This test was developed and its performance characteristics determined by [facility] in a manner consistent with CLIA requirements. It has not been cleared by the [place] Food and Drug Administration. Test Performed by: [facility] [address] [place] [address] Light Technician: Fili Huitron Ph.D.; CLIA# [id number] Blood Structure of peripheral vein / Unknown Venipuncture / Unknown 02/25/2025 4:35 PM EST 02/25/2025 4:46 PM EST us Geraldine Powell MD LAB BLOOD ORDERABLES Final Re sult [facility] [address] [place] [address], [place] [phone] * Immunoglobulins Panel (IgG, IgA, IgM) (02/25/2025 4:35 PM EST) Immunoglobulin A 207 47 - 310 mg/dL 02/26/2025 8:11 AM EST [employer] IgG, Serum 773 600 - 1640 mg/dL 02/26/2025 8:11 AM EST [employer] Immunoglobulin M 77 50 - 300 mg/dL 02/26/2025 8:11 AM [facility] Blood Structure of peripheral vein / Unknown Venipuncture / Unknown 02/25/2025 4:35 PM EST 02/25/2025 4:46 PM EST Narrative [facility] - 02/26/2025 8:11 AM EST [facility] Received Date:[id number] us Geraldine Powell MD LAB BLOOD ORDERABLES Final Re sult [facility] [address], [place] [address], [place] [phone] [facility] [facility] [address], [place] [address], [place] [phone] * Iron, TIBC and Ferritin Panel (02/05/2025 3:37 PM EST) Iron, Total 111 45 - 160 mcg/dL 02/06/2025 4:50 AM EST [employer] Iron Binding Capacity 258 250 - 450 mcg/dL (calc) 02/06/2025 4:50 AM EST [employer] % Saturation 43 16 - 45 % (calc) 02/06/2025 4:50 AM [facility] Ferritin 134 16 - 232 ng/mL 02/06/2025 2:36 AM [facility] 02/05/2025 3:37 PM EST 02/06/2025 1:30 AM EST Narrative [facility] - 02/06/2025 4:51 AM EST FASTING:NO us Geraldine Powell MD LAB BLOOD ORDERABLES Final Re sult Performing Organization Address City/[facility]/ZIP Co de Phone Number [facility] [address], [facility] [place] [address], [facility] [address] [place] [address] * Vitamin B12 & Folate (02/05/2025 3:37 PM EST) Vitamin B12 677 200 - 1,100 pg/mL 02/06/2025 2:36 AM EST [employer] [facility] Folate, Serum 11.7 ng/mL 02/06/2025 2:36 AM EST [employer] [facility] Comment: Reference Range Low: <3.4 Borderline: 3.4-5.4 Normal: >5.4 Blood Structure of peripheral vein / Unknown 02/05/2025 3:37 PM EST 02/06/2025 1:30 AM EST Narrative [facility] - 02/06/2025 4:51 AM EST FASTING:NO us Geraldine Powell MD LAB BLOOD ORDERABLES Final Re sult Performing Organization Address [facility] Co de Phone Number [facility] [address], [facility] [place] [address], [facility] [facility] [address] [place] [address] * (ABNORMAL) Urinalysis W/Reflex to Microscopic & Culture (02/04/2025 11:38 AM EST) Color DARK YELLOW YELLOW 02/05/2025 3:57 AM EST [employer] [facility] Appearance CLEAR CLEAR 02/05/2025 3:57 AM EST [employer] [facility] Specific [place] 1.036(H) 1.001 - 1.035 02/05/2025 3:57 AM EST [employer] [facility] PH 7.0 5.0 - 8.0 02/05/2025 3:57 AM EST [facility] Glucose NEGATIVE NEGATIVE 02/05/2025 3:57 AM EST [facility] Bilirubin NEGATIVE NEGATIVE 02/05/2025 3:57 AM EST [facility] Ketones 1+(A) NEGATIVE 02/05/2025 3:57 AM EST [facility] Occult Blood NEGATIVE NEGATIVE 02/05/2025 3:57 AM EST [facility] Protein TRACE(A) NEGATIVE 02/05/2025 3:57 AM EST [facility] Nitrite NEGATIVE NEGATIVE 02/05/2025 3:57 AM EST [facility] Leukocyte Esterase TRACE(A) NEGATIVE 02/05/2025 3:57 AM EST [facility] WBC, Urine NONE SEEN 0 - 5 /HPF 02/05/2025 3:57 AM EST [facility] RBC NONE SEEN 0 - 2 /HPF 02/05/2025 3:57 AM EST [facility] Squamous Epithelial Cells NONE SEEN < OR = 5 /HPF 02/05/2025 3:57 AM EST [facility] Bacteria NONE SEEN NONE SEEN /HPF 02/05/2025 3:57 AM EST [facility] Hyaline Cast NONE SEEN NONE SEEN /LPF 02/05/2025 3:57 AM EST [facility] Note See Comments 02/05/2025 3:57 AM EST [facility] Comment: This urine was analyzed for the presence of WBC, RBC, bacteria, casts, and other formed elements. Only those elements seen were reported. 02/04/2025 11:3 8 AM EST 02/05/2025 3:11 AM EST Narrative [facility] - 02/06/2025 2:22 AM EST FASTING:NO us Yovani Montgomery MD PhD LAB URINE ORDERABLES Fi nal Result [facility] [address] [facility] 3rd Floor, [place] [address], [facility] [address] [place] [address] * Urine Microscopic Reflex Indicated (02/04/2025 11:38 AM EST) Reflexive Urine Culture See Comments 02/05/2025 3:57 AM EST [facility] Comment: CULTURE INDICATED - RESULTS TO FOLLOW 02/04/2025 11:3 8 AM EST 02/05/2025 3:11 AM EST Narrative [facility] - 02/06/2025 2:22 AM EST FASTING:NO Yovani Montgomery MD PhD LAB URINE ORDERABLES Fi nal Result Performing Organization Address City/[facility]/ZIP Co de Phone Number [facility] [address], [facility] [place] [address], [place] [phone] [facility] [address] [place] [address] * Urine Culture, Routine (02/04/2025 11:38 AM EST) Micro Number [id number] 02/06/2025 2:20 AM EST [facility] Specimen Quality Adequate 02/06/2025 2:20 AM EST [facility] Source URINE 02/06/2025 2:20 AM EST [facility] Status FINAL 02/06/2025 2:20 AM EST [facility] Result No Growth 02/06/2025 2:20 AM EST [facility] 02/04/2025 11:3 8 AM EST 02/04/2025 11:39 AM EST Narrative [facility] - 02/06/2025 2:22 AM EST FASTING:NO Yovani Montgomery MD PhD LAB MICROBIOLOGY - GENE RAL ORDERABLES Final Result Performing Organization Address [facility] Co de Phone Number [facility] [address], [facility] [place] [address], [place] [phone] [facility] [address] [place] [address] * Hepatitis Panel, Acute (08/14/2023 9:50 AM EDT) Hepatitis A IgM NON-REACT CHARLES NON-REACT CHARLES 08/14/2023 6:58 PM EDT [facility] Hepatitis B Surface Antigen NON-REACT CHARLES NON-REACT CHARLES 08/14/2023 6:58 PM EDT [facility] Hepatitis B Core Antibody NON-REACT CHARLES NON-REACT CHARLES 08/14/2023 6:58 PM EDT [facility] Hepatitis C Antibody NON-REACT CHARLES NON-REACT CHARLES 08/14/2023 6:58 PM EDT [facility] Comment: HCV antibody was non-reactive. There is no laboratory evidence of HCV infection. In most cases, no further action is required. However, if recent HCV exposure is suspected, a test for HCV RNA (test code 24256) is suggested. For additional information please refer to http://[facility].[employer]ovarity/faq/GFX30b4 (This link is being provided for informational/ educational purposes only.) For additional information, please refer to http://[facility].[employer]ovarity/faq/UMP423 (This link is being provided for informational/ educational purposes only.) Blood Structure of peripheral vein / Unknown Venipuncture / Unknown 08/14/2023 9:50 AM EDT 08/14/2023 10:09 AM EDT Narrative [facility] - 08/14/2023 6:58 PM EDT [facility] Received Date: Geraldine Powell MD LAB BLOOD ORDERABLES Final Re sult [facility] [address] [facility] [address] [facility], [place] [address], [facility] [address] [facility] 3rd [place], [place] [address], from Last 3 Months or Most Recently Relevant to Health Maintenance Insurance [facility] HMO/POS Care Teams Energy Project Manager Relationship Specialty Start Date End Date Helen Hines [address] [place] [address] PCP - General Internal Medicine 06/25/21
--- OUTSIDE RECORDS SUMMARY | 2025-03-03 17:58 | XMS_ITS | Encounter Summary ---
Author Organization [facility] Address [address] [id number] Care Team Providers Care Quality Improvement Analyst Name Role Phone Helen Hines Primary Care Provider [phone] Encounter Details Date Type Department Care Team (Late st Contact Info) Description 12/29/2021 myChart Message [facility] [address] [place] [address] Saul Lemon MD [address] [place] [address] Vitamin B12 level Social History Tobacco Use [...] Description 09/10/2025 3:00 PM EDT Office Visit [facility] [address] [place] [address] [phone] Speech Teacher: Donna Monte documented as of this encounter Visit Diagnoses Not on filedocumented in this encounter Care Teams Quality Improvement Analyst Relationship Specialty Start Date End Date Helen Hines [address] [facility] [place] [address] PCP - General Internal Medicine 06/25/21 documented as of this encounter
[2025-03-03] MEDS: diazePAM 10 MG/2 ML CARTRIDGE 5 MG IVPUSH (18:09)
[2025-03-03 18:11] VITALS: RESP 16
[2025-03-03 18:14] VITALS: PULSE 88; RESP 16; O2SAT 98
[2025-03-03] MEDS: oxyCODONE HCl Immed Release 5 MG TABLET PO (20:57)
--- NOTE | 2025-03-03 20:59 | PC.NURSE ---
medicated per jun and notified ASHISH Fitch
[2025-03-03 21:29] VITALS: BP 00/00; PULSE 0; RESP 20; TEMP -17.7; TEMP 0
== END 2025-03-03 21:30 | disposition home or self-care (01) ==
PROVIDERS: Registered Nurse Emergency; Emergency Provider Student in an Organized Health Care Education/Training Program; PCP Internal Medicine
DX: M25.511 Pain in right shoulder (principal); G35.D Multiple sclerosis, unspecified; Z79.52 Long term (current) use of systemic steroids; Z88.5 Allergy status to narcotic agent; Z91.040 Latex allergy status
CPT/HCPCS: 36415; 73030; 80053; 82550; 85025; 85652; 86140; 96361; 96374; 96375; 99284; J1171; J3360

== ENCOUNTER → 2025-03-03 16:31 | Outpatient (BNV) | payer BC, SELFPAY | PROVIDERS: Emergency Provider Student in an Organized Health Care Education/Training Program; PCP Internal Medicine; Visit Provider Radiology Diagnostic Radiology | DX: M79.601 Pain in right arm (principal) | CPT/HCPCS: 73030 ==

== ENCOUNTER 2025-03-05 12:32 | Outpatient (AMB) | payer BC, SELFPAY ==
--- NOTE | 2025-03-05 12:35 | A.OFFPC_ITS ---
Vital Signs 03/05/25 12:41 Height 5 ft 4 in Weight 150 lb BMI 25.7 BP 110/70 Blood Pressure Location Lt brachial Position Sitting Respiration 16 Pulse 99 Pulse Source Pulse Oximeter Temp 98.8 F Temp Source Oral Pulse Oximetry (%) 97 Oxygen Delivery Method Room Air Intake Visit Reasons: ER follow up Intake Note: Pt is here today for ER follow up visit. Allergies latex (LATEX) Allergy (Intermediate, Verified 03/05/25 12:43) HIVES morphine (MORPHINE) Allergy (Intermediate, Verified 03/05/25 12:43) HIVES acetaminophen (From PERCOCET) Allergy (Unknown, Verified 03/05/25 12:43) RASH Interferons (INTERFERONS) Allergy (Unknown, Verified 03/05/25 12:43) ANAPHYLAXIS oxycodone (From PERCOCET) Allergy (Unknown, Verified 03/05/25 12:43) RASH band aids Allergy (Uncoded 03/05/25 12:43) Unknown Medication List - Last Reconciled 03/05/25 by Helen Hines MD albuterol sulfate 90 mcg/actuation (ProAir HFA) 1 inh inhalation QID PRN baclofen 10 mg PO BID cyanocobalamin (vitamin B-12) 1,000 mcg PO DAILY cyclobenzaprine 5 mg PO TID PRN estradiol 0.01%(0.1mg/gram) 1 g vaginal 2XW levothyroxine 175 mcg PO DAILY magnesium PO ofatumumab (Kesimpta Pen) mg subcut oxycodone 5 mg PO TID PRN prednisone 40 mg (2 x 20 mg) PO DAILY 5 days sertraline 100 mg PO DAILY syringe with needle (BD Luer-Krystal Syringe) Use to inject vitamin B 12 weekly valacyclovir 1,000 mg PO DIRECTED Wegovy (semaglutide (weight loss)) 1 mg (0.5 mL) subcut QWEEK NS Tobacco use date assessed: 09/03/24 Dental Screening Dental Screen Date: 07/05/24 HPI ER follow up HPI Details Patient presents for follow-up of ER visit for upper extremity pain 2 days ago. Patient developed severe pain over right biceps region at rest but worse with the movement about 5 days ago. Patient was treated for MS exacerbation 3 weeks ago with intravenous steroids and prednisone taper which she completed a week before the onset of the pain. Patient denies any injury or strenuous exercises recently. Patient denies fever chills night sweats rash joint pain chest pain shortness or breath. Shoulder x-ray and basic blood work were normal. Patient was prescribed 40 mg of prednisone to take for 5 days, oxycodone and baclofen in the ER. She took 1 dose of 40 mg of prednisone yesterday. Patient is requesting to have an MRI of right upper extremity to evaluate for rotator cuff or muscle injury [facility] Medical History Right hip pain Colonoscopy refused Vitamin B12 deficiency Bunion of great toe Endometrial polyp Dysmenorrhea Spinal stenosis Precancerous lesion Annual physical exam Mammogram normal Normal Pap smear History of atypical skin mole Multiple sclerosis Eczema Psoriasis Papillary thyroid carcinoma Asthma Arthritis Surgical History Hx of hysterectomy H/O left knee surgery H/O spinal fusion H/O total thyroidectomy History of section Family History Father Hodgkins disease Heart disease Mother Degenerative disk disease Skin cancer Social History Housing: House Alcohol intake: current Alcohol intake frequency: holidays/special occasions only Patient Tobacco Use Status: Never used Tobacco e-Cigarette/Vaping Use: Never Used service: No Current occupational status: employed Cognitive needs: No Hearing needs: No Vision needs: Yes Questionnaire Thrive Questionnaire Date Thrive assessed: 07/05/24 I am a: Patient What is your living situation today?: I have a steady place to live Within the past 12 months, did the food you bought not last and you didn't have the money to get more?: Never true Within the past 12 months, did you worry whether your food would run out before you got money to buy more?: Never true Do you have trouble paying for medicines?: No Do you have trouble getting transportation to medical appointments?: No Do you have trouble paying your heating and electricity bill?: No Do you have trouble taking care of your child, family member or friend?: No Do you have trouble with day-to-day activities such as bathing, preparing meals, shopping, managing finances, etc.?: No Are you currently unemployed and looking for a job?: No Are you interested in more education?: No Please select the resources that you would like help with: None Currently or been in a relationship where the following occur: No concerns reported THRIVE Score: 0 JENNIFER-7 AMB Questionnaire JENNIFER-7 Date JENNIFER - 7 assessed: 07/05/24 Source: Developed by Drs. Marlo Blevins, Mirtha Osborne, Erik Soto and colleagues, with an educational mor from [employer]. Review of Systems Const All systems reviewed & are unremarkable except as noted in HPI and below Eyes Reports no additional complaints ENT Reports no additional complaints Card Reports no additional complaints Resp Reports no additional complaints GI Reports no additional complaints Reports no additional complaints Physical exam (Primary Care) Vital Signs: Last Vital Signs Temp 98.8 F 03/05/25 12:41 Pulse 99 03/05/25 12:41 Resp 16 03/05/25 12:41 BP 110/70 03/05/25 12:41 Pulse Ox 97 03/05/25 12:41 Oxygen Delivery Method Room Air 03/05/25 12:41 BMI result Body Mass Index 25.7 Tobacco/Smoking Status: Tobacco use Status Tobacco use date assessed 09/03/24 03/05/25 12:36 Patient Tobacco Use Status Never used Tobacco 03/05/25 12:36 e-Cigarette/Vaping Use Never Used 03/05/25 12:36 Thrive Assessment: Date of Thrive Assessment Date Thrive assessed 07/05/24 03/05/25 12:36 Currently or been in a relationship where the following occur: No concerns reported Const General: anxious HENMT Head: Yes normal to inspection Neck Neck: Yes supple Resp Effort & Inspection: normal respiratory effort Cardio Rhythm: regular rhythm Heart sounds: S1 normal heart sound present and S2 normal heart sound present Extrem Other: There is reproducible tenderness over right biceps region, there is no soft tissue swelling, patient is not able to perform passive or active range of motion in right shoulder due to pain Coding Level of Care Code Est Pt Level 3 (59182) Diagnoses Rotator cuff arthropathy of right shoulder M12.811 Biceps tendinitis of right shoulder M75.21 Assessment & Plan Assessment & Plan (1) Rotator cuff arthropathy of right shoulder: Code(s): M12.811 - Other specific arthropathies, not elsewhere classified, right shoulder Category: Medical Plan: Obtain MRI of right shoulder to rule out rotator cuff tear (2) Biceps tendinitis of right shoulder: Code(s): M75.21 - Bicipital tendinitis, right shoulder Category: Medical Plan: Patient was advised to increase prednisone to 60 mg daily to take for 10 days. She is referred to the orthopedic surgeon and will follow-up in 10 days Orders: Orders Creatine Kinase Total Today M25.511 - Pain in right shoulder MR shoulder RT wo con Today M12.811 - Other specific arthropathies, not elsewhere classified, right shoulder D Dimer High Sensitivity Today M79.603 - Pain in arm, unspecified Medications: Changed From prednisone 40 mg (2 x 20 mg) PO DAILY 5 days 10 tabs 0RF To prednisone 60 mg (3 x 20 mg) PO DAILY 30 tabs 0RF 10 days
[2025-03-05 12:41] VITALS: BP 110/70; PULSE 99; RESP 16; TEMP 37.1; O2SAT 97; BMI 25.7
--- OUTSIDE RECORDS SUMMARY | 2025-03-05 14:46 | XMS_ITS | Encounter Summary ---
Author Organization [facility] Address [address] [place] [address] Care Team Providers Care Entry Level Marketing Representative Name Role Phone Helen Hines Primary Care Provider [phone] Encounter Details Date Type Department Care Team (Late st Contact Info) Description 02/10/2025 Results Follow-Up [facility] [address] [place] [address] Roller Coaster Designer: Geraldine Fall MD [address] [place] [address] Social History Tobacco Use Types Packs/Day [...] 11:38 AM EST Orders faxed to [facility] documented in this encounter Plan of Treatment Upcoming Encounters Date Type Department Care Team (Late st Contact Info) Description 09/10/2025 3:00 PM EDT Office Visit [facility] [address] [place] [id number] Roller Coaster Designer: Donna Monte documented as of this encounter Visit Diagnoses Not on filedocumented in this encounter Care Teams Entry Level Marketing Representative Relationship Specialty Start Date End Date Helen Hines [address] [place] [address] PCP - General Internal Medicine 06/25/21 documented as of this encounter
--- OUTSIDE RECORDS SUMMARY | 2025-03-05 14:46 | XMS_ITS | Encounter Summary ---
Author Organization [facility] Address [address] [place] [address] Care Team Providers Care Cigar Binder Name Role Phone Helen Hines Primary Care Provider [phone] Encounter Details Date Type Department Care Team (Late st Contact Info) Description 10/11/2021 Telephone [facility] [address] [place] [address] Telephone Intake, Staff Social History Tobacco [...] patient, approval on 09/24/21 for [facility] to return our call , did she have the scans done . Will wait for pt to return call , new auth needed, needs 3T machine * Telephone Encounter - Anne Mclean - 10/11/2021 9:02 AM EDT ----- Message from Cherry Delaney LPN sent at 10/07/2021 12:55 PM EDT ----- Sh needs her MRI done at [facility] documented in this encounter Plan of Treatment Upcoming Encounters Date Type Department Care Team (Late st Contact Info) Description 09/10/2025 3:00 PM EDT Office Visit [facility] [address] [place] [phone] Diagnostic Assistant: Donna Monte documented as of this encounter Visit Diagnoses Not on filedocumented in this encounter Care Teams Cigar Binder Relationship Specialty Start Date End Date Helen Hines [address] [place] [address] PCP - General Internal Medicine 06/25/21 documented as of this encounter
--- OUTSIDE RECORDS SUMMARY | 2025-03-05 14:46 | XMS_ITS | Encounter Summary ---
Author Organization [facility] Address [address] [place] [address] Care Team Providers Care Vehicle Delivery Worker Name Role Phone Helen Hines Primary Care Provider [phone] Encounter Details Date Type Department Care Team (Late st Contact Info) Description 09/23/2021 Telephone [facility] Central Scheduling Department [address] [place] [address] Telephone Intake, Staff Social History Tobacco Use [...] AM EDT DOCUMENTATION PURPOSE ONLY lvm AT [phone] TO SEE ABOUT PT authorization for MRI to go to [facility] to get it done there documented in this encounter Plan of Treatment Upcoming Encounters Date Type Department Care Team (Late st Contact Info) Description 09/10/2025 3:00 PM EDT Office Visit [facility] [address] [place] [address] Hvac Service Tech: Donna Monte documented as of this encounter Visit Diagnoses Not on filedocumented in this encounter Care Teams Vehicle Delivery Worker Relationship Specialty Start Date End Date Helen Hines [address] [place] [address] PCP - General Internal Medicine 06/25/21 documented as of this encounter
--- OUTSIDE RECORDS SUMMARY | 2025-03-05 14:46 | XMS_ITS | Encounter Summary ---
Author Organization [facility] Address [address] [place] [address] Care Team Providers Care Sweatband Shaper Name Role Phone Helen Hines Primary Care Provider [phone] Encounter Details Date Type Department Care Team (Late Contact Info) Description 02/07/2025 myChart Message [facility] [address] [place] [address] Eap Specialist: Geraldine Fall MD [address] [place] [id number] IV steroids Social History Tobacco Use Types [...] 09/10/2025 3:00 PM EDT Office Visit [facility] [address] [place] [address] Eap Specialist: Donna Monte documented as of this encounter Visit Diagnoses Not on filedocumented in this encounter Care Teams Sweatband Shaper Relationship Specialty Start Date End Date Helen Hines [address] [facility] [place] [address] PCP - General Internal Medicine 06/25/21 documented as of this encounter
--- OUTSIDE RECORDS SUMMARY | 2025-03-05 14:46 | XMS_ITS | Clinical Summary ---
Author Organization [facility] Address [address] [place] [address] Care Team Providers Care Topographical Field Assistant Name Role Phone Helen Hines Primary Care Provider [phone] Allergies Active Allergy Reactions Criticality Noted Date [...] day for 1 day. 15 tablet 02/08/20 25 025 Active Problems Problem Noted Date Diagnosed Date Vitamin D deficiency 01/29/2018 Chronic fatigue 08/11/2014 Vitamin B12 deficiency 06/13/2014 Depression 06/09/2014 Neurogenic bladder 07/17/2013 Restless legs syndrome 07/17/2013 Multiple sclerosis 02/13/2012 Encounters Date Type Department Care Team Description 03/04/2025 myChart Message [facility] [address] [place] [address] 27404 Teacher Citizenship: Geraldine Fall MD Er yesterday 02/25/2025 3:00 PM EST Office Visit [facility] [address] [place] [address] 75173 Teacher Citizenship: Susana Wiley, DO Multiple sclerosis (Primary Dx) 02/10/2025 Results Follow-Up [facility] [address] [place] [address] 44235 Teacher Citizenship: Geraldine Fall MD 02/07/2025 Orders Only [facility] [address] [place] [address] 49897 Teacher Citizenship: Geraldine Fall MD 02/07/2025 myChart Message [facility] [address] [place] [address] 86498 Teacher Citizenship: Geraldine Fall MD IV steroids 02/07/2025 Telephone [facility] [address] [place] [address] 78257 Teacher Citizenship: Donna Monte Telephone Intake, Staff PAC Clinical Questions 02/05/2025 Orders Only [facility] [address] [place] [address] Kae Muhammad Restless legs syndrome 02/05/2025 Orders Only [facility] [address] [place] [address] 02261 Teacher Citizenship: Geraldine Fall MD Vitamin B12 deficiency (Primary Dx) 02/05/2025 Telephone [facility] [address] [place] [address] 14683 Teacher Citizenship: Cherry Rivas LPN 02/04/2025 Orders Only [facility] [address] [place] [address] 00644 Teacher Citizenship: Yovani No MD PhD 02/04/2025 Orders Only [facility] [address] [place] [address] 45191 Teacher Citizenship: Susana Wiley, DO Multiple sclerosis (Primary Dx); Restless legs syndrome 01/30/2025 Orders Only [facility] [address] [place] [address] 54539 Teacher Citizenship: Yaneth Walton LPN Urinary tract infection without hematuria, site unspecified (Primary Dx) 01/30/2025 Telephone [facility] [address] [place] [address] 33249 Teacher Citizenship: Donna Monte Telephone Intake, Staff PAC Clinical Questions 01/30/2025 myChart Message [facility] [address] [place] [address] 50415 Teacher Citizenship: Geraldine Fall MD Symptom 01/16/2025 Refill [facility] [address] [place] [address] 79046 Teacher Citizenship: Geraldine Fall MD Multiple sclerosis from Last [...] Description 09/10/2025 3:00 PM EDT Office Visit [facility] [address] [place] [address] Teacher Citizenship: Donna Monte Health Maintenance Due Date Last [...] Additional history exists Procedures * Due to [place] state law, this organization might not be sharing negative HIV tests. Procedure Name Priority Date/Time Associated Diagnosis Comments IMMUNOGLOBULINS PANEL (IGG, IGA, IGM) Routine 02/25/2025 4:35 PM EST Multiple sclerosis NEUROFILAMENT LIGHT [id number] Routine 02/25/2025 4:35 PM EST Multiple sclerosis IRON, TIBC AND FERRITIN PANEL (5616) Routine 02/05/2025 3:37 PM EST VITAMIN B12 Routine 02/05/2025 3:37 PM EST Vitamin B12 deficiency REFLEXIVE URINE CULTURE (SBCULI) Routine 02/04/2025 11:38 AM EST URINALYSIS W/REFLEX TO MICROSCOPIC & CULTURE Routine 02/04/2025 11:38 AM EST URINE CULTURE, ROUTINE Routine 5 11:38 AM EST HEPATITIS PANEL, ACUTE Routine 4 9:50 AM EDT Multiple sclerosis Vitamin B12 deficiency Vitamin D deficiency Restless legs syndrome Chronic fatigue CD4 COUNTS Routine 02/13/2012 1:06 PM EST from Last 3 Months or Most Recently Relevant to Health Maintenance Results * Due to [place] state law, this organization might not be sharing negative HIV tests. * Neurofilament Light Chain, Plasma (02/25/2025 4:35 PM EST) Neurofilament Light Chain, Plasma 10.9 < or = 22.4 pg/mL 02/28/2025 11:27 AM EST [facility] Comment: As of 2024, [facility] has updated the Neurofilament Light Chain (NfL) methodology. If patient is undergoing serial monitoring of NfL levels, rebaselining by requesting that this sample also be run on the previous assay method for comparison purposes is recommended. Rebaseline of this sample at no charge will be available until 05/30/2025 and the rebaseline result will be added to this report. Contact [email or web address] at to request this service. For [place] patients, call [phone]. ADDITIONAL INFORMATION The testing method is a chemiluminescent enzyme immunoassay for the quantitative determination of NfL in plasma manufactured by [employer] and performed on the [employer] analyzer. Values obtained with different methods may be different and cannot be used interchangeably. This test was developed and its performance characteristics determined by [facility] in a manner consistent with CLIA requirements. It has not been cleared by the [place] Food and Drug Administration. Test Performed by: [facility] [address] [place] [address] Lye Treater: Fili Huitron Ph.D.; CLIA# [id number] Blood Structure of peripheral vein / Unknown Venipuncture / Unknown 02/25/2025 4:35 PM EST 02/25/2025 4:46 PM EST Geraldine Powell MD LAB BLOOD ORDERABLES Final Re sult Performing Organization Address City/[facility]/ZIP Co de Phone Number [facility] [address] [place] [address], * Immunoglobulins Panel (IgG, IgA, IgM) (02/25/2025 4:35 PM EST) Pathologist [facility] Immunoglobulin A 207 47 - 310 mg/dL 02/26/2025 8:11 AM EST [facility] IgG, Serum 773 600 - 1640 mg/dL 02/26/2025 8:11 AM EST [facility] Immunoglobulin M 77 50 - 300 mg/dL 02/26/2025 8:11 AM EST [facility] Blood Structure of peripheral vein / Unknown Venipuncture / Unknown 02/25/2025 4:35 PM EST 02/25/2025 4:46 PM EST Narrative [facility] - 02/26/2025 8:11 AM EST [facility] Received Date:[id number] us Geraldine Powell MD LAB BLOOD ORDERABLES Final Re sult Performing Organization Address City/[facility] Co de Phone Number [facility] [address] [facility] [address]rd Floor, [place] [address], [place] [phone] [facility] [address], [place] [address], [place] [phone] * Iron, TIBC and Ferritin Panel (02/05/2025 3:37 PM EST) Pathologist [facility] Iron, Total 111 45 - 160 mcg/dL 02/06/2025 4:50 AM EST [facility] Iron Binding Capacity 258 250 - 450 mcg/dL (calc) 02/06/2025 4:50 AM EST [facility] % Saturation 43 16 - 45 % (calc) 02/06/2025 4:50 AM EST [facility] Ferritin 134 16 - 232 ng/mL 02/06/2025 2:36 AM EST [facility] 02/05/2025 3:37 PM EST 02/06/2025 1:30 AM EST Narrative [facility] - 02/06/2025 4:51 AM EST FASTING:NO us Geraldine Powell MD LAB BLOOD ORDERABLES Final Re sult Performing Organization Address City/[facility]/ZIP Co de Phone Number [facility] [address], [place] [address], [facility] [address] [place] [address] * Vitamin B12 & Folate (02/05/2025 3:37 PM EST) Vitamin B12 677 200 - 1,100 pg/mL 02/06/2025 2:36 AM EST [facility] Folate, Serum 11.7 ng/mL 02/06/2025 2:36 AM EST [facility] Comment: Reference Range Low: <3.4 Borderline: 3.4-5.4 Normal: >5.4 Blood Structure of peripheral vein / Unknown 02/05/2025 3:37 PM EST 02/06/2025 1:30 AM EST Narrative [facility] - 02/06/2025 4:51 AM EST FASTING:NO us Geraldine Powell MD LAB BLOOD ORDERABLES Final Re sult Performing Organization Address City/[facility]/ZIP Co de Phone Number [facility] [address], [place] [address], [facility] [address] [place] [address] * (ABNORMAL) Urinalysis W/Reflex to Microscopic & Culture (02/04/2025 11:38 AM EST) Color DARK YELLOW YELLOW 02/05/2025 3:57 AM EST [facility] Appearance CLEAR CLEAR 02/05/2025 3:57 AM EST [facility] Specific [place] 1.036(H) 1.001 - 1.035 02/05/2025 3:57 AM EST [facility] PH 7.0 5.0 - 8.0 02/05/2025 3:57 AM EST [facility] Glucose NEGATIVE NEGATIVE 02/05/2025 3:57 AM EST [facility] Bilirubin NEGATIVE NEGATIVE 02/05/2025 3:57 AM EST [facility] Ketones 1+(A) NEGATIVE 02/05/2025 3:57 AM EST [facility] Occult Blood NEGATIVE NEGATIVE 02/05/2025 3:57 AM EST [facility] Protein TRACE(A) NEGATIVE 02/05/2025 3:57 AM EST [facility] Nitrite NEGATIVE NEGATIVE 02/05/2025 3:57 AM [facility] Leukocyte Esterase TRACE(A) NEGATIVE 02/05/2025 3:57 AM [facility] WBC, Urine NONE SEEN 0 - 5 /HPF 02/05/2025 3:57 AM EST [facility] RBC NONE SEEN 0 - 2 /HPF 02/05/2025 3:57 AM EST [facility] Squamous Epithelial Cells NONE SEEN < OR = 5 /HPF 02/05/2025 3:57 AM EST [facility] Bacteria NONE SEEN NONE SEEN /HPF 02/05/2025 3:57 AM [facility] Hyaline Cast NONE SEEN NONE SEEN /LPF 02/05/2025 3:57 AM [facility] Note See Comments 02/05/2025 3:57 AM EST [facility] Comment: This urine was analyzed for the presence of WBC, RBC, bacteria, casts, and other formed elements. Only those elements seen were reported. 02/04/2025 11:3 8 AM EST 02/05/2025 3:11 AM EST Narrative [facility] - 02/06/2025 2:22 AM EST FASTING:NO us Yovnai Montgomery MD PhD LAB URINE ORDERABLES Fi nal Result [facility] [address] [facility] 3rd Floor, [place] [address], [facility] [address] [address] * Urine Microscopic Reflex Indicated (02/04/2025 11:38 AM EST) Reflexive Urine Culture See Comments 02/05/2025 3:57 AM EST [facility] Comment: CULTURE INDICATED - RESULTS TO FOLLOW 02/04/2025 11:3 8 AM EST 02/05/2025 3:11 AM EST Narrative [facility] - 02/06/2025 2:22 AM EST FASTING:NO us Yovani Montgomery MD PhD LAB URINE ORDERABLES Fi nal Result Performing Organization Address City/[facility]/ZIP Co de Phone Number [facility] [address] [address], [facility] [address] [address] * Urine Culture, Routine (02/04/2025 11:38 AM EST) Micro Number [id number] 02/06/2025 2:20 AM EST [facility] Specimen Quality Adequate 02/06/2025 2:20 AM EST [facility] [employer] Source URINE 02/06/2025 2:20 AM EST [facility] Status FINAL 02/06/2025 2:20 AM EST [facility] [employer] Result No Growth 02/06/2025 2:20 AM EST [facility] 02/04/2025 11:3 8 AM EST 02/04/2025 11:39 AM EST Narrative [facility] - 02/06/2025 2:22 AM EST FASTING:NO us Yovani Montgomery MD PhD LAB MICROBIOLOGY - GENE RAL ORDERABLES Final Result Performing Organization Address City/[facility]/ZIP Co de Phone Number [facility] [address], [place] [address], [place] [phone] [facility] [address] [place] [address] * Hepatitis Panel, Acute (08/14/2023 9:50 AM EDT) Hepatitis A IgM NON-REACT CHARLES NON-REACT CHARLES 08/14/2023 6:58 PM EDT [facility] Hepatitis B Surface Antigen NON-REACT CHARLES NON-REACT CHARLES 08/14/2023 6:58 PM EDT [facility] Hepatitis B Core Antibody NON-REACT CHARLES NON-REACT CHARLES 08/14/2023 6:58 PM EDT [facility] Hepatitis C Antibody NON-REACT CHARLES NON-REACT CHARLES 08/14/2023 6:58 PM EDT [facility] Comment: HCV antibody was non-reactive. There is no laboratory evidence of HCV infection. In most cases, no further action is required. However, if recent HCV exposure is suspected, a test for HCV RNA (test code 95097) is suggested. For additional information please refer to http://Zitra.com.SocialMart/faq/IKR10m6 (This link is being provided for informational/ educational purposes only.) For additional information, please refer to http://Zitra.com.SocialMart/faq/OKA497 (This link is being provided for informational/ educational purposes only.) Blood Structure of peripheral vein / Unknown Venipuncture / Unknown 08/14/2023 9:50 AM EDT 08/14/2023 10:09 AM EDT Narrative [facility] - 08/14/2023 6:58 PM EDT [facility] Received Date: Geraldine Powlel MD LAB BLOOD ORDERABLES Final Re sult [facility] [address] [facility] 3rd Floor, [place] [address], [facility] [address] [facility] 3rd [address], [place] [address], from Last 3 Months or Most Recently Relevant to Health Maintenance Insurance [facility] HMO/POS Care Teams Topographical Field Assistant Relationship Specialty Start Date End Date Helen Hines [address] [facility] [place] [address] PCP - General Internal Medicine 06/25/21
--- OUTSIDE RECORDS SUMMARY | 2025-03-05 14:46 | XMS_ITS | Encounter Summary ---
Author Organization [facility] Address [address] [place] [address] Care Team Providers Care Rodent Control Worker Name Role Phone Helen Hines Primary Care Provider [phone] Encounter Details Date Type Department Care Team (Late st Contact Info) Description 01/23/2020 Orders Only [facility] Interventional Radiology [address] [place], [place] [phone] Niurka Lee MD [address] [place] [address] Social History Tobacco Use Types Packs/Day Years [...] Description 09/10/2025 3:00 PM EDT Office Visit [facility] [address] [place] [address] Pattern Changer And Repairer: Donna Monte documented as of this encounter Visit Diagnoses Not on filedocumented in this encounter Care Teams Rodent Control Worker Relationship Specialty Start Date End Date Helen Hines [address] [facility] [place] [address] PCP - General Internal Medicine 06/25/21 documented as of this encounter
--- OUTSIDE RECORDS SUMMARY | 2025-03-05 14:46 | XMS_ITS | Clinical Summary ---
Author Organization [facility] Address [address] [place] [address] Phone Care Team Providers Care Grant Administrator Name Role Phone Helen Hines MD Primary Care Provider [phone] Allergies Active Allergy Reactions Criticality Noted Date [...] Active SYNTHROID 175 mcg tabletIndications:P ostoperative hypothyroidism TAKE 1 TABLET ORALLY ONCE A DAY SIX DAYS A WEEK, skip the day, or as directed 78 tablet 1 5 Active Active Problems Problem Noted Date [...] Team Description 02/10/2025 Orders Only [facility] [address] [place] [address] [place] [address] Lizbet Oscar Postoperative hypothyroidism 02/03/2025 Orders Only [facility] Endocrinology [place] [address] [place] [address] Kristi Roy MD Postoperative hypothyroidism (Primary Dx) 01/28/2025 Refill [facility] [address] [place] [address] [place] [address] Kristi Roy MD Medication Refill from Last [...] 04/10/2025 4:00 PM EST Telemedicine [facility] [address] [place] [address] [place] [address] Kristi Roy MD [address] [place] [address] [email or web address] Health Maintenance Due Date Last Done Comments [...] VACCINE (#1) 2024 COVID-19 VACCINE (3 - 2024- season) 2024 02/19/2021, 06/29/2020 TSH LEVEL 02/01/2026 [...] LAB BLOOD BKR ORDERABL ES Final Result [address] [phone] * Outside Hepatitis C Virus Screening (12/13/2022) Hepatitis C Screening - External Neg Historical Provider LAB BLOOD ORDERABLES Tila l Result from Last 3 Months or Most Recently Relevant to Health Maintenance Insurance [facility] [place] [address] [facility] Care Teams Grant Administrator Relationship Specialty Start Date End Date Helen Hines MD [address] [place] [address] PCP - General Internal Medicine 03/28/23 Additional Source Comments The information contained in this document represents components of the legal health record. It is not the complete legal health record.[facility]
--- OUTSIDE RECORDS SUMMARY | 2025-03-05 14:46 | XMS_ITS | Encounter Summary ---
Author Organization [facility] Address [address] [place] [address] Care Team Providers Care Dot Compliance Coordinator Name Role Phone Helen Hines Primary Care Provider [phone] Encounter Details Date Type Department Care Team (Late st Contact Info) Description 03/04/2025 myChart Message [facility] [address] [place] [address] Credit Administration Specialist: Geraldine Fall MD [address] [place] [address] Er yesterday Social History Tobacco Use Types Packs/Day Years [...] Description 09/10/2025 3:00 PM EDT Office Visit [facility] [address] [place] [address] Credit Administration Specialist: Donna Monte documented as of this encounter Visit Diagnoses Not on filedocumented in this encounter Care Teams Dot Compliance Coordinator Relationship Specialty Start Date End Date Helen Hines [address] [facility] [place] [address] PCP - General Internal Medicine 06/25/21 documented as of this encounter
--- OUTSIDE RECORDS SUMMARY | 2025-03-05 14:46 | XMS_ITS | Encounter Summary ---
Author Organization [facility] Address [address] [phone] Care Team Providers Care Media Reconciliation Specialist Name Role Phone Helen Hines Primary Care Provider [phone] Encounter Details Date Type Department Care Team (Late st Contact Info) Description 12/29/2021 myChart Message [facility] Neurology Clinic [address] [place] [address] Saul Lemon MD [address] [place] [address] Vitamin B12 level Social History Tobacco Use [...] Description 09/10/2025 3:00 PM EDT Office Visit [facility] [address] [place] [address] [phone] Agricultural Adviser: Donna Monte documented as of this encounter Visit Diagnoses Not on filedocumented in this encounter Care Teams Media Reconciliation Specialist Relationship Specialty Start Date End Date Helen Hines [address] [facility] [place] [address] PCP - General Internal Medicine 06/25/21 documented as of this encounter
--- OUTSIDE RECORDS SUMMARY | 2025-03-05 14:46 | XMS_ITS | Encounter Summary ---
Author Organization [facility] Address [address] [place] [address] Care Team Providers Care Transcript Evaluator Name Role Phone Helen Hines Primary Care Provider [phone] Encounter Details Date Type Department Care Team (Late st Contact Info) Description 02/05/2025 Orders Only [facility] [address] [place] [address] Kae Muhammad Restless legs syndrome Social History Tobacco Use [...] Description 09/10/2025 3:00 PM EDT Office Visit [facility] [address] [place] [address] Assistant Account Executive: Donna Monte documented as of this encounter Visit Diagnoses Diagnosis Restless legs syndrome Restless legs syndrome (RLS) documented in this encounter Care Teams Transcript Evaluator Relationship Specialty Start Date End Date Helen Hines [address] [facility] [place] [address] PCP - General Internal Medicine 06/25/21 documented as of this encounter
--- OUTSIDE RECORDS SUMMARY | 2025-03-05 14:46 | XMS_ITS | Encounter Summary ---
Author Organization [facility] Address [address] [facility] [address] [place] [address] Phone Care Team Providers Care Seismograph Shooter Name Role Phone Helen Hines MD Primary Care Provider [phone] Encounter Details Date Type Department Care Team (Late st Contact Info) Description 02/10/2025 Orders Only [facility] [address] [place] [place], [place] [phone] Lizbet Oscar [address] [place], [place] [phone] [email or web address] Postoperative hypothyroidism Social History Tobacco Use Types [...] 4:00 PM EST Telemedicine [facility] [address] [place], [place] [phone] Kristi Roy MD [address] [place] [address] [email or web address] documented as of this encounter Procedures Procedure Name Priority Date/Time Associated Diagnosis Comments TSH WITH REFLEX Routine 02/01/2025 12:43 PM EDT Postoperative hypothyroidism documented in this encounter Results * Thyroid Stimulating Hormone (TSH), with Reflex (02/01/2025 12:43 PM EDT) Blood (Blood) us Kristi Roy MD LAB BLOOD BKR ORDERABL ES Final Result [address] [address] documented in this encounter Visit Diagnoses Diagnosis Postoperative hypothyroidism Postsurgical hypothyroidism documented in this encounter Care Teams Seismograph Shooter Relationship Specialty Start Date End Date Helen Hines MD [facility] [place] [address] PCP - General Internal Medicine 03/28/23 documented as of this encounter Additional Source Comments The information contained in this document represents components of the legal health record. It is not the complete legal health record.[facility]
--- OUTSIDE RECORDS SUMMARY | 2025-03-05 14:46 | XMS_ITS | Encounter Summary ---
Author Organization [facility] Address [address] [place] [address] Care Team Providers Care Magnetic Resonance Imaging Director Name Role Phone Helen Hines Primary Care Provider [phone] Encounter Details Date Type Department Care Team (Late Contact Info) Description 01/30/2025 myChart Message [facility] S[facility] [address] [place] [address] Banking Management Consulting Manager: Geraldine Fall MD [address] [place] [address] Symptom Social History Tobacco Use Types Packs/Day [...] Description 09/10/2025 3:00 PM EDT Office Visit [facility] [address] [place] [address] Banking Management Consulting Manager: Donna Monte documented as of this encounter Visit Diagnoses Not on filedocumented in this encounter Care Teams Magnetic Resonance Imaging Director Relationship Specialty Start Date End Date Helen Hines [address] [facility] [place] [address] PCP - General Internal Medicine 06/25/21 documented as of this encounter
== END 2025-03-05 13:28 | disposition home or self-care (01) ==
LOC: HO.HMCC 12:33
PROVIDERS: PCP Internal Medicine; Visit Provider Internal Medicine
DX: M12.811 Other specific arthropathies, not elsewhere classified, right shoulder (principal); M75.21 Bicipital tendinitis, right shoulder